=== PATIENT | female | born 1940 | race Caucasian/White ===

== ENCOUNTER 2017-12-08 19:58 | Emergency (ER) | payer OTHER ==
--- OUTSIDE RECORDS SUMMARY | 2017-12-08 20:00 | XMS REPORT ---
:1940 [facility] Tian Bean [address] [place] [id number] Care Team Providers Name Role Phone SHANTAL BEASLEY Unavailable Unavailable Problems This patient has no known problems. Allergies, Adverse Reactions, Alerts This patient has no known allergies or adverse reactions. Medications This patient has no known medications. Results Test Description Test Time Test Comments Text Results Atomic Results Result Comments CBC (HEMOGRAM ONLY) 2017-02-18 07:41:00 Test Item Value Reference Range Comments WHITE BLOOD CELL COUNT (BEAKER) 9.7 K/ L 3.5-10.5 (test lpnb=789) RED BLOOD CELL COUNT (BEAKER) 3.12 M/ L 3.93-5.22 (test tpoq=397) HEMOGLOBIN (BEAKER) (test 9.5 GM/DL 11.2-15.7 vjsd=939) HEMATOCRIT (BEAKER) (test 29.5 % 34.1-44.9 hdrx=223) MEAN CORPUSCULAR VOLUME (BEAKER) 94.6 fL 79.4-94.8 (test hajr=553) MEAN CORPUSCULAR HEMOGLOBIN 30.4 pg 25.6-32.2 (BEAKER) (test iqhm=675) MEAN CORPUSCULAR HEMOGLOBIN CONC 32.2 GM/DL 32.2-35.5 (BEAKER) (test aeug=005) RED CELL DISTRIBUTION WIDTH 13.1 % 11.7-14.4 (BEAKER) (test wmxn=529) PLATELET COUNT (BEAKER) (test 241 K/CU MM 150-450 Discordant result compared to alwp=095) previous result; clinical correlation required. MEAN PLATELET VOLUME (BEAKER) 10.9 fL 9.4-12.3 (test bqlq=641) NUCLEATED RED BLOOD CELLS 0 /100 WBC 0-0 (BEAKER) (test wpvy=701) [id number] 07:13:00 Test Item Value Reference Range Comments BLOOD UREA NITROGEN (BEAKER) (test ifqw=442) 15 mg/dL 7-21 [id number] 07:13:00 Test Item Value Reference Range Comments SODIUM (BEAKER) (test bcut=046) 138 meq/L 136-145 POTASSIUM (BEAKER) (test xgwk=926) 4.0 meq/L 3.5-5.1 CHLORIDE (BEAKER) (test ofhn=874) 108 meq/L 98-107 CO2 (BEAKER) (test uitt=475) 23 meq/L 22-29 [id number] 07:13:00 Test Item Value Reference Range Comments CREATININE (BEAKER) (test 0.95 mg/dL 0.57-1.25 imjw=914) EGFR (BEAKER) (test 57 mL/min/1.73 sq m ESTIMATED GFR IS NOT wazv=0985) ACCURATE CREATININE CLEARANCE IN PREDICTING GLOMERULAR FILTRATION RATE. ESTIMATED GFR IS NOT APPLICABLE FOR DIALYSIS PATIENTS. [id number] 07:07:00 Test Item Value Reference Range Comments PARTIAL THROMBOPLASTIN TIME (BEAKER) (test 64.7 seconds 22.5-36.0 rpil=150) [id number] 02:43:00 Test Item Value Reference Range Comments PARTIAL THROMBOPLASTIN TIME (BEAKER) (test 38.0 seconds 22.5-36.0 dkpf=374) Prior to initiating [id number] 17:59:00 Test Item Value Reference Range Comments ACTIVATED CLOTTING TIME 131 sec TESTED AT [facility] [address] (BEAKER) (test gaqi=861) [place] [address] [id number] 17:14:00 Test Item Value Reference Range Comments ACTIVATED CLOTTING TIME 329 sec TESTED AT [facility] [address] (BEAKER) (test nfra=729) [place] [address] [id number] 17:14:00 Test Item Value Reference Range Comments ACTIVATED CLOTTING TIME 334 sec TESTED AT [facility] [address] (BEAKER) (test gwku=717) [place] [address] [id number] 17:14:00 Test Item Value Reference Range Comments ACTIVATED CLOTTING TIME 345 sec TESTED AT [place] [id number] (BEAKER) (test puoi=747) [place] [address] [id number] 17:14:00 Test Item Value Reference Range Comments ACTIVATED CLOTTING TIME 274 sec TESTED AT [facility] [address] (BEAKER) (test deyc=282) [facility] [address] BASIC METABOLIC [id number] 07:16:00 Test Item Value Reference Range Comments SODIUM (BEAKER) (test 140 meq/L 136-145 iefu=684) POTASSIUM (BEAKER) (test 3.9 meq/L 3.5-5.1 oxjg=101) CHLORIDE (BEAKER) (test 105 meq/L 98-107 gzlc=651) CO2 (BEAKER) (test 26 meq/L 22-29 tpbn=427) BLOOD UREA NITROGEN 20 mg/dL 7-21 (BEAKER) (test vjtv=606) CREATININE (BEAKER) (test 1.32 mg/dL 0.57-1.25 jycf=166) GLUCOSE RANDOM (BEAKER) 113 mg/dL 70-105 (test lrzr=624) CALCIUM (BEAKER) (test 9.5 mg/dL 8.4-10.2 gsww=621) EGFR (BEAKER) (test 39 mL/min/1.73 sq m ESTIMATED GFR IS NOT dwtl=4340) ACCURATE CREATININE CLEARANCE IN PREDICTING GLOMERULAR FILTRATION RATE. ESTIMATED GFR IS NOT APPLICABLE FOR DIALYSIS PATIENTS. PROTHROMBIN TIME/[id number] 07:07:00 Test Item Value Reference Range Comments PROTIME (BEAKER) (test wjgk=037) 14.8 seconds 11.7-14.7 INR (BEAKER) (test ffcq=864) 1.2 <=5.9 RECOMMENDED COUMADIN/WARFARIN INR THERAPY RANGESSTANDARD DOSE: 2.0 - 3.0 Includes: PROPHYLAXIS forvenous thrombosis, systemic embolization; TREATMENT for venous thrombosis and/or pulmonary embolus.HIGH RISK: Target INR is 2.5-3.5 for patients with mechanical heart valves.Within 24 hours, if on CoumadinCBC W/ PLT COUNT & AUTO [id number] 07:00:00 Test Item Value Reference Range Comments WHITE BLOOD CELL COUNT (BEAKER) (test lish=278) 6.6 K/ L 3.5-10.5 RED BLOOD CELL COUNT (BEAKER) (test rbbl=771) 4.05 M/ L 3.93-5.22 HEMOGLOBIN (BEAKER) (test getn=781) 12.4 GM/DL 11.2-15.7 HEMATOCRIT (BEAKER) (test fnyk=998) 37.6 % 34.1-44.9 MEAN CORPUSCULAR VOLUME (BEAKER) (test vwry=820) 92.8 fL 79.4-94.8 MEAN CORPUSCULAR HEMOGLOBIN (BEAKER) (test 30.6 pg 25.6-32.2 kiuw=435) MEAN CORPUSCULAR HEMOGLOBIN CONC (BEAKER) (test 33.0 GM/DL 32.2-35.5 kglo=734) RED CELL DISTRIBUTION WIDTH (BEAKER) (test 12.6 % 11.7-14.4 cwwy=043) PLATELET COUNT (BEAKER) (test aadq=506) 296 K/CU MM 150-450 MEAN PLATELET VOLUME (BEAKER) (test ozit=039) 10.0 fL 9.4-12.3 NUCLEATED RED BLOOD CELLS (BEAKER) (test 0 /100 WBC 0-0 ogmh=404) NEUTROPHILS RELATIVE PERCENT (BEAKER) (test 67 % pltk=518) LYMPHOCYTES RELATIVE PERCENT (BEAKER) (test 25 % vfjc=701) MONOCYTES RELATIVE PERCENT (BEAKER) (test 6 % chjo=560) EOSINOPHILS RELATIVE PERCENT (BEAKER) (test 1 % qdll=853) BASOPHILS RELATIVE PERCENT (BEAKER) (test 1 % dxxf=217) NEUTROPHILS ABSOLUTE COUNT (BEAKER) (test 4.42 K/ L 1.56-6.13 xdiu=727) LYMPHOCYTES ABSOLUTE COUNT (BEAKER) (test 1.65 K/ L 1.18-3.74 wxdl=742) MONOCYTES ABSOLUTE COUNT (BEAKER) (test 0.37 K/ L 0.24-0.36 vzwb=676) EOSINOPHILS ABSOLUTE COUNT (BEAKER) (test 0.07 K/ L 0.04-0.36 sswe=500) BASOPHILS ABSOLUTE COUNT (BEAKER) (test 0.08 K/ L 0.01-0.08 xjfq=323) IMMATURE GRANULOCYTES-RELATIVE PERCENT (BEAKER) 0 % 0-1 (test lrey=5945)
--- OUTSIDE RECORDS SUMMARY | 2017-12-08 20:00 | XMS REPORT | Clinical Summary ---
:1940 Author Organization [facility] Address [address] [place] [address] Phone Care Team Providers Name Role Phone Unavailable Primary Care Provider Unavailable Allergies No Known Allergies Current Medications Prescription Sig. Disp. Refills Start Date End Date Status metoprolol Take 50 mg by Active (TOPROL-XL) 100 MG mouth daily . 24 hr tablet irbesartan-hydrochlo Take 1 tablet 12/24/2015 Active rothiazide (AVALIDE) by mouth 300-12.5 mg per daily. tablet atorvastatin Take 8 30 tablet 0 01/04/2016 Active (LIPITOR) 10 MG tablets (80 tablet mg total) by mouth daily. levothyroxine Take 50 mcg Active (SYNTHROID, by mouth LEVOTHROID) 50 MCG Every morning tablet on an empty stomach. dabigatran (PRADAXA) Take by mouth Active 150 mg Cap capsule 2 (two) times daily. amiodarone Take 200 mg Active (PACERONE) 200 MG by mouth tablet daily. pantoprazole Take 1 tablet 30 tablet 0 02/18/2017 Active (PROTONIX) 40 MG (40 mg total) tablet by mouth daily. aspirin 81 MG EC Take 1 tablet 30 tablet 11 01/04/2016 01/03/2017 tablet (81 mg total) by mouth daily. senna-docusate Take 1 tablet 30 tablet 11 01/04/2016 01/03/2017 (SENOKOT S) 8.6-50 by mouth mg per tablet nightly. pantoprazole Take 1 tablet 30 tablet 0 02/18/2017 02/18/2017 Discontinued (PROTONIX) 40 MG (40 mg total) tablet by mouth daily. Active Problems Problem Noted Date Atrial fibrillation (HCC) 02/17/2017 Acute ischemic right MCA stroke (HCC) 01/01/2016 Encounters Date Type Specialty Care Team Description 02/17/2017 Hospital Encounter Cardiology Adrian Moise Atrial fibrillation, MD unspecified type (HCC) 02/17/2017 - Hospital Encounter Cardiology Adrian Moise, Acute ischemic right 02/18/2017 MCA stroke (HCC);S/P ablation of atrial fibrillation 02/17/2017 Anesthesia Event Anderson Olivo MD 02/17/2017 Orders Only General Internal Medicine 02/17/2017 Procedure Pass 02/17/2017 Surgery Adrian Moise, EPS & ABLATION 02/10/2017 Outside Orders Central Scheduling Adrian Moise Atrial fibrillation, MD unspecified type (HCC) (Primary Dx) after 12/07/2016 Social History Tobacco Use Types Packs/Day Years Used Date Never Smoker Smokeless Tobacco: Never Used Alcohol Use Drinks/Week oz/Week Comments No Sex Assigned at Date Recorded Not on file Last Filed Vital Signs Vital Sign Reading Time Taken Blood Pressure 124/56 02/18/2017 11:25 AM [facility] OPERATOR Pulse 76 02/18/2017 11:25 AM [facility] OPERATOR Temperature 36.7 C (98.1 F) 02/18/2017 11:25 AM [facility] OPERATOR Respiratory Rate 16 02/18/2017 11:25 AM [facility] OPERATOR Oxygen Saturation 92% 02/18/2017 11:25 AM [facility] OPERATOR Inhaled Oxygen Concentration - - Weight 68.5 kg (151 lb) 02/18/2017 7:05 AM BAN[facility]Y OPERATOR Height 157.5 cm (5' 2") 02/17/2017 6:23 AM [facility] OPERATOR Body Mass Index 27.62 02/18/2017 7:05 AM BANBURY OPERATOR Plan of Treatment Not on file Procedures Procedure Name Priority Date/Time Associated Diagnosis Comments EPS & ABLATION 02/17/2017 11:53 AM [facility] OPERATOR Paroxysmal atrial fibrillation (HCC) Case Notes (2) CASE POP6 CV ANES Atrial fib uvaldo rf with dario & carto MD rerquest 1:00PM after 12/07/2016 Results RHYTHM STRIP - SCAN (02/24/2017 12:20 PM)Only the most recent of2 resultswithin the time period is included.CARDIAC CATH REPORT - SCAN (02/19/2017 8:00 PM) aPTT (02/18/2017 6:28 AM)Only the most recent of2 resultswithin the time period is included. Component Value Ref Range PTT 64.7 (H) 22.5 - 36.0 seconds Specimen Performing Laboratory Blood - Arm, [address] [address] CBC (Hemogram only) (02/18/2017 6:28 AM) Component Value Ref Range WBC 9.7 3.5 - 10.5 K/L RBC 3.12 (L) 3.93 - 5.22 M/L Hemoglobin 9.5 (L) 11.2 - 15.7 GM/DL Hematocrit 29.5 (L) 34.1 - 44.9 % MCV 94.6 79.4 - 94.8 fL MCH 30.4 25.6 - 32.2 pg MCHC 32.2 32.2 - 35.5 GM/DL RDW 13.1 11.7 - 14.4 % Platelets 241Comment: Discordant result compared to previous 150 - 450 K/CU MM result; clinical correlation required. MPV 10.9 9.4 - 12.3 fL nRBC 0 0 - 0 /100 WBC Specimen Performing Laboratory Blood - Arm, [address] [address] BUN (02/18/2017 6:28 AM) Component Value Ref Range BUN 15 7 - 21 mg/dL Specimen Performing Laboratory Blood - Arm, [address] [address] Creatinine (02/18/2017 6:28 AM) Component Value Ref Range Creatinine 0.95 0.57 - 1.25 mg/dL EGFR 57Comment: ESTIMATED GFR IS NOT ACCURATE mL/min/1.73 sq m CREATININE CLEARANCE IN PREDICTING GLOMERULAR FILTRATION RATE. ESTIMATED GFR IS NOT APPLICABLE FOR DIALYSIS PATIENTS. Specimen Performing Laboratory Blood - Arm, [address] [address] Electrolytes (02/18/2017 6:28 AM) Component Value Ref Range Sodium 138 136 - 145 meq/L Potassium 4.0 3.5 - 5.1 meq/L Chloride 108 (H) 98 - 107 meq/L CO2 23 22 - 29 meq/L Specimen Performing Laboratory Blood - Arm, [address] [address] POC ACTIVATED CLOTTING TIME (02/17/2017 5:43 PM)Only the most recent of5 resultswithin the time period is included. Component Value Ref Range Activated Clotting Time 131Comment: TESTED AT [facility] [address] [facility] sec [id number] Specimen Performing Laboratory Blood [place] [place] [id number] [place] [address] ECHOCARDIOGRAM REPORT - SCAN (02/17/2017 3:50 PM)Transesophageal echo (2016 8:31 AM) Component Value Ref Range Ejection Fraction Specimen Performing Laboratory [facility] ECHO [facility]ART[facility] MKCKESSON CPACS Narrative Transesophageal Echocardiography Report (MONSE) Demographics Patient Name ANKUR DUENAS Date of Study 02/17/2017 MOLLY [id number] Female Visit Number [id number] Room Number Number Date of Birth1Referring Physician Suma Campbell MD Age76 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 Risks, complications and alternative treatments were reviewed. Written consent was obtained. Procedure Type of Study MONSE procedure:TRANSESOPHAGEAL ECHO (Routine) Indications:Atrial fibrillation. Clinical History HGB 12.4 HCT 37.6 % STROKE HDL HTN HYPOTHYROIDSM Height: 62 inches Weight: 68.04 kg (150 lbs) BSA: 1.69 m^2 BMI: 27.44 kg/m^2 HR: 94 bpm BP: 124/68 mmHg MONSE Performed By: the attending and the fellow Procedure Informed Consent Procedure consent form obtained. Anesthesia consent obtained. Airway assessment performed. Mallampati Score: 2. History of anesthesia complications obtained. - See IV sedation record Procedure Medications - Versed 3 mg. - Fentanyl 75 mcg. Summary The interatrial septum is well visualized. IV saline contrast injection demostrates a PFO (patent foramen ovale) at rest and post Valsalva . Proximal ascending aorta size is mildly dilated . Grade 2 plaque (extensive intimal thickening) in the ascending aorta . LA is enlarged but severity assessment is unreliable due to know MONSE sector size limitation. LA appendage thrombus is not present . LA appendage velocities are normal range (>40 cm/s) . LA appendage morphology is simple (wind sock) . Previous Study Compared to prior transthoracic study dated 12/2015, there is no significant change. Signature Findings Technical Quality: Technically adequate exam. Rhythm/BPRegular sinus rhythm during the exam. Left Ventricle Global LV systolic function normal . Left AtriumLA is enlarged but severity assessment is unreliable due to know MONSE sector size limitation. LA appendage thrombus is not present . LA appendage velocities are normal range (>40 cm/s) . LA appendage morphology is simple (nusrat schuler) . Right VentricleThe right ventricular chamber size and systolic function are within normal limits. Right Atrium RA size is normal. Atrial SeptumThe interatrial septum is well visualized. IV saline contrast injection demostrates a PFO (patent foramen ovale) at rest and post Valsalva . Aortic Valve Normal AoV structure. A trace of aortic regurgitation. Mitral Valve Normal MV structure. Trace mitral regurgitation. Tricuspid ValveTV structure is normal. Unable to estimate peak systolic PA pressure; inadequate TR velocity signal. Pulmonic Valve PV is not well visualized; function appears normal by Doppler visualized. AortaProximal ascending aorta size is mildly dilated . Grade 2 plaque (extensive intimal thickening) in the ascending aorta . PericardiumNo pericardial effusion is visualized. IVC/SVC/PA/PV/PleuralThe pulmonary veins appear normal. 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 Risks, complications and alternative treatments were reviewed. Written consent was obtained. Procedure Type of Study MONSE procedure:TRANSESOPHAGEAL ECHO (Routine) Indications:Atrial fibrillation. Clinical History HGB 12.4 HCT 37.6 % STROKE HDL HTN HYPOTHYROIDSM Height: 62 inches Weight: 68.04 kg (150 lbs) BSA: 1.69 m^2 BMI: 27.44 kg/m^2 HR: 94 bpm BP: 124/68 mmHg MONSE Performed By: the attending and the fellow Procedure Informed Consent Procedure consent form obtained. Anesthesia consent obtained. Airway assessment performed. Mallampati Score: 2. History of anesthesia complications obtained. - See IV sedation record Procedure Medications - Versed 3 mg. - Fentanyl 75 mcg. Summary The interatrial septum is well visualized. IV saline contrast injection demostrates a PFO (patent foramen ovale) at rest and post Valsalva . Proximal ascending aorta size is mildly dilated . Grade 2 plaque (extensive intimal thickening) in the ascending aorta . LA is enlarged but severity assessment is unreliable due to know MONSE sector size limitation. LA appendage thrombus is not present . LA appendage velocities are normal range (>40 cm/s) . LA appendage morphology is simple (wind sock) . Previous Study Compared to prior transthoracic study dated 12/2015, there is no significant change. Signature Findings Technical Quality: Technically adequate exam. Rhythm/BP Regular sinus rhythm during the exam. Left Ventricle Global LV systolic function normal . Left Atrium LA is enlarged but severity assessment is unreliable due to know MONSE sector size limitation. LA appendage thrombus is not present . LA appendage velocities are normal range (>40 cm/s) . LA appendage morphology is simple (wind sock) . Right Ventricle The right ventricular chamber size and systolic function are within normal limits. Right Atrium RA size is normal. Atrial Septum The interatrial septum is well visualized. IV saline contrast injection demostrates a PFO (patent foramen ovale) at rest and post Valsalva . Aortic Valve Normal AoV structure. A trace of aortic regurgitation. Mitral Valve Normal MV structure. Trace mitral regurgitation. Tricuspid Valve TV structure is normal. Unable to estimate peak systolic PA pressure; inadequate TR velocity signal. Pulmonic Valve PV is not well visualized; function appears normal by Doppler visualized. Aorta Proximal ascending aorta size is mildly dilated . Grade 2 plaque (extensive intimal thickening) in the ascending aorta . Pericardium No pericardial effusion is visualized. IVC/SVC/PA/PV/Pleural The pulmonary veins appear normal. Chambers/Structures Aorta Ascending Aorta: 3.72 cm ECG 12 lead (02/17/2017 7:36 AM) Specimen Performing Laboratory [employer] [facility] Narrative Ventricular Rate 70 BPM Atrial Rate 70 BPM P-R Interval 160 ms QRS Duration 86 ms Q-T Interval 450 ms QTC Calculation(Bazett) 486 ms P [place] -39 degrees R [place] 49 degrees T [place] 43 degrees Unusual P axis, possible ectopic atrial rhythm Abnormal ECG When compared with ECG of 01-JAN-2016 17:50, Ectopic atrial rhythm has replaced Sinus rhythm Confirmed by Idris Moise Alireaz ([id number]) on 02/25/2017 8:43:53 PM Procedure Note Interface, External Ris In - 02/25/2017 8:44 PM [facility] OPERATOR Ventricular Rate 70 BPM Atrial Rate 70 BPM P-R Interval 160 ms QRS Duration 86 ms Q-T Interval 450 ms QTC Calculation(Bazett) 486 ms P [place] -39 degrees R [place] 49 degrees T [place] 43 degrees Unusual P axis, possible ectopic atrial rhythm Abnormal ECG When compared with ECG of 01-JAN-2016 17:50, Ectopic atrial rhythm has replaced Sinus rhythm Confirmed by Idris Moise Alireaz ([id number]) on 02/25/2017 8:43:53 PM CBC with platelet count + automated diff (02/17/2017 6:52 AM) Component Value Ref Range WBC 6.6 3.5 - 10.5 K/L RBC 4.05 3.93 - 5.22 M/L Hemoglobin 12.4 11.2 - 15.7 GM/DL Hematocrit 37.6 34.1 - 44.9 % MCV 92.8 79.4 - 94.8 fL MCH 30.6 25.6 - 32.2 pg MCHC 33.0 32.2 - 35.5 GM/DL RDW 12.6 11.7 - 14.4 % Platelets 296 150 - 450 K/CU MM MPV 10.0 9.4 - 12.3 fL nRBC 0 0 - 0 /100 WBC % Neutros 67 % % Lymphs 25 % % Monos 6 % % Eos 1 % % Baso 1 % # Neutros 4.42 1.56 - 6.13 K/L # Lymphs 1.65 1.18 - 3.74 K/L # Monos 0.37 (H) 0.24 - 0.36 K/L # Eos 0.07 0.04 - 0.36 K/L # Baso 0.08 0.01 - 0.08 K/L Immature Granulocytes-Relative 0 0 - 1 % Specimen Performing Laboratory Blood - Arm, [address] [address] Prothrombin time/INR (02/17/2017 6:52 AM) Component Value Ref Range Protime 14.8 (H) 11.7 - 14.7 seconds INR 1.2 <=5.9 Specimen Performing Laboratory Blood - Arm, [address] [address] Narrative RECOMMENDED COUMADIN/WARFARIN INR THERAPY RANGES STANDARD DOSE: 2.0 - 3.0 Includes: PROPHYLAXIS for venous thrombosis, systemic embolization; TREATMENT for venous thrombosis and/or pulmonary embolus. HIGH RISK: Target INR is 2.5-3.5 for patients with mechanical heart valves. Within 24 hours, if on Coumadin CBC with platelet count + automated diff (02/17/2017 6:52 AM) Specimen Performing Laboratory Blood Narrative The following orders were created for panel order CBC with platelet count + automated diff. Procedure Abnormality Status --------- ------ CBC with platelet count ...[[id number]]AbnormalFinal result Please view results for these tests on the individual orders. Basic metabolic panel (02/17/2017 6:52 AM) Component Value Ref Range Sodium 140 136 - 145 meq/L Potassium 3.9 3.5 - 5.1 meq/L Chloride 105 98 - 107 meq/L CO2 26 22 - 29 meq/L BUN 20 7 - 21 mg/dL Creatinine 1.32 (H) 0.57 - 1.25 mg/dL Glucose 113 (H) 70 - 105 mg/dL Calcium 9.5 8.4 - 10.2 mg/dL EGFR 39Comment: ESTIMATED GFR IS NOT ACCURATE mL/min/1.73 sq m CREATININE CLEARANCE IN PREDICTING GLOMERULAR FILTRATION RATE. ESTIMATED GFR IS NOT APPLICABLE FOR DIALYSIS PATIENTS. Specimen Performing Laboratory Blood - Arm, Left [address] [address] after 12/07/2016
[2017-12-08] MEDS ORDERED: IBUPROFEN 200 MG TAB PO ONE (20:43)
--- NOTE | 2017-12-08 21:17 | RAD REPORT ---
EXAM DESCRIPTION: RAD - Foot Left 3 View - 12/08/2017 9:06 pm CLINICAL HISTORY: DEFORMITY Pain COMPARISON: <Comparisons> FINDINGS: Fracture involves the base of the proximal phalanx of the fifth toe. No additional fractur e seen.
--- NOTE | 2017-12-08 21:18 | EDPHYS ---
Physician Documentation [facility] Name: Cierra Flores Age: 77 yrs Sex: Female : 1940 Arrival Date: 12/08/2017 Time: 20:10 Bed 10 Private MD: ED Physician Jah Mckeon HPI: 12/08 20:27 This 77 yrs old Female presents to ER via Wheelchair with complaints of Toe ma2 Injury. 20:27 The patient presents with an injury. The complaints affect the left foot. Context: The ma2 problem was sustained at home. Associated signs and symptoms: Pertinent positives: swelling, Pertinent negatives: calf tenderness, fever, numbness, swelling. Severity of symptoms: At their worst the symptoms were moderate, in the emergency department the symptoms are unchanged. The patient has not experienced similar symptoms in the past. tripped hit left 5th toe, no head trauma or loc . Historical: - Allergies: 20:18 Morphine; fc - Home Meds: 20:18 atorvastatin 80 mg Oral tab 1 tab once daily [Active]; doxazosin 2 mg Oral tab 1 tab fc once daily [Active]; irbesartan-hydrochlorothiazide 300-12.5 mg Oral tab 1 tab once daily [Active]; levothyroxine 50 mcg tab 1 tab once daily [Active]; metoprolol succinate 100 mg Oral Tb24 1 tab once daily [Active]; Pradaxa 150 mg Oral cap 1 cap 2 times per day [Active]; - PMHx: 20:18 Atrial Fib; Heart Monitor; Hypertension; CVA; High Cholesterol; Hypothyroidism; fc - Immunization history:: Last tetanus immunization: unknown, Flu vaccine is not up to date. - Social history:: Smoking status: Patient/guardian denies using tobacco, Patient/guardian denies using alcohol, street drugs, The patient lives with family, . - Ebola Screening: : Patient negative for fever greater than or equal to 101.5 degrees Fahrenheit, and additional compatible Ebola Virus Disease symptoms Patient denies exposure to infectious person Patient denies travel to an Ebola-affected area in the 21 days before illness onset. - Family history:: not pertinent. - Hospitalizations: : No recent hospitalization is reported. ROS: 20:27 MS/extremity: Positive for deformity, pain, Negative for abrasion, rash, tenderness, ma2 acute changes. 20:27 Constitutional: Negative for fever, chills, and weight loss, Abdomen/GI: Negative for abdominal pain, nausea, diarrhea, and constipation, Back: Negative for injury and pain, : Negative for injury, bleeding, discharge, and swelling, Skin: Negative for injury, rash, and discoloration, Neuro: Negative for headache, weakness, numbness, tingling, and seizure. Exam: 20:27 Constitutional: This is a well developed, well nourished patient who is awake, alert, ma2 and in no acute distress. Chest/axilla: Normal chest wall appearance and motion. Nontender with no deformity. No lesions are appreciated. Cardiovascular: Regular rate and rhythm with a normal S1 and S2. No gallops, murmurs, or rubs. Normal PMI, no JVD. No pulse deficits. Respiratory: Lungs have equal breath sounds bilaterally, clear to auscultation and percussion. No rales, rhonchi or wheezes noted. No increased work of breathing, no retractions or nasal flaring. Abdomen/GI: Soft, non-tender, with normal bowel sounds. No distension or tympany. No guarding or rebound. No evidence of tenderness throughout. Skin: Warm, dry with normal turgor. Normal color with no rashes, no lesions, and no evidence of cellulitis. Neuro: Awake and alert, GCS 15, oriented to person, place, time, and situation. Cranial nerves II-XII grossly intact. Motor strength 5/5 in all extremities. Sensory grossly intact. Cerebellar exam normal. Normal gait. 20:27 Musculoskeletal/extremity: ROM: Circulation is intact in all extremities. Sensation intact. left toe pain and deformity . Vital Signs: 20:14 BP 132 / 54; Pulse 74; Resp 18; Temp 97.7(O); Pulse Ox 98% on R/A; Weight 66.22 kg (R); fc Height 5 ft. 2 in. (157.48 cm) (R); Pain 6/10; 21:28 BP 141 / 54; Pulse 74; Resp 16 S; Temp 97(TE); Pulse Ox 99% on R/A; Pain 1/10; bb 20:14 Body Mass Index 26.70 (66.22 kg, 157.48 cm) fc MDM: 20:22 Patient medically screened. ma2 20:27 Differential diagnosis: fracture, sprain, arthritis. ma2 21:16 Data reviewed: vital signs, nurses notes, radiologic studies. Test interpretation: by id2 ED physician or midlevel provider: plain radiologic studies. Counseling: I had a detailed discussion with the patient and/or guardian regarding: the historical points, exam findings, and any diagnostic results supporting the discharge/admit diagnosis, the presence of at least one elevated blood pressure reading (>120/80) during this emergency department visit, the need for outpatient follow up. Response to treatment: the patient's symptoms have markedly improved after treatment. ED course: body wrrap . ED course: had sole shoe . 12/08 20:11 Order name: Foot Left 3 View XRAY Administered Medications: 20:36 Drug: Motrin 400 mg Route: PO; 21:28 Follow up: Response: Pain is decreased bb Disposition: 12/08/17 21:17 Discharged to Home. Impression: Displaced fracture of medial phalanx of unspecified lesser toe(s). - Condition is Stable. - Discharge Instructions: Toe Fracture. - Prescriptions for Ibuprofen 600 mg Oral Tablet - take 1 tablet by ORAL route every 6 hours As needed take with food; 30 tablet. - Medication Reconciliation Form, Thank You Letter, Antibiotic Education, Prescription Opioid Use form. - Follow up: Private Physician; When: Tomorrow; Reason: Continuance of care. Signatures: Dispatcher [employer] EDSuzan Heredia RN RN Shefali Pop RN RN bb Alzahri, Mohammad, MD MD id2 Corrections: (The following items were deleted from the chart) 21:11 20:18 Home Meds: amiodarone 200 mg Oral tab 1 tab once daily; [facility] 21:31 21:17 12/08/2017 21:17 Discharged to Home. Impression: Displaced fracture of medial bb phalanx of unspecified lesser toe(s). Condition is Stable. Forms are Medication Reconciliation Form, Thank You Letter, Antibiotic Education, Prescription Opioid Use. Follow up: Private Physician; When: Tomorrow; Reason: Continuance of care. id2
--- NOTE | 2017-12-08 21:18 | ER ---
Nurse's Notes [facility] Name: Cierra Flores Age: 77 yrs Sex: Female : 1940 Arrival Date: 12/08/2017 Time: 20:10 Bed 10 Private MD: Diagnosis: Displaced fracture of medial phalanx of unspecified lesser toe(s) Presentation: 12/08 20:00 Method Of Arrival: Wheelchair fc 20:00 Presenting complaint: Patient states: the that was walking out of the bathroom and fc stepped down and fell. She has left 5th toe that is deformed. Also having increased pain with ambulation. Transition of care: patient was not received from another setting of care. Onset of symptoms was December 08, 2017 at 19:05. Risk Assessment: Do you want to hurt yourself or someone else? Patient reports no desire to harm self or others. Initial Sepsis Screen: Does the patient meet any 2 criteria? No. Patient's initial sepsis screen is negative. Does the patient have a suspected source of infection? No. Patient's initial sepsis screen is negative. Care prior to arrival: Ice pack applied to injury. 20:00 Acuity: ELIO 4 fc Historical: - Allergies: 20:18 Morphine; fc - Home Meds: 20:18 atorvastatin 80 mg Oral tab 1 tab once daily [Active]; doxazosin 2 mg Oral tab 1 tab fc once daily [Active]; irbesartan-hydrochlorothiazide 300-12.5 mg Oral tab 1 tab once daily [Active]; levothyroxine 50 mcg tab 1 tab once daily [Active]; metoprolol succinate 100 mg Oral Tb24 1 tab once daily [Active]; Pradaxa 150 mg Oral cap 1 cap 2 times per day [Active]; - PMHx: 20:18 Atrial Fib; Heart Monitor; Hypertension; CVA; High Cholesterol; Hypothyroidism; fc - Immunization history:: Last tetanus immunization: unknown, Flu vaccine is not up to date. - Social history:: Smoking status: Patient/guardian denies using tobacco, Patient/guardian denies using alcohol, street drugs, The patient lives with family, . - Ebola Screening: : Patient negative for fever greater than or equal to 101.5 degrees Fahrenheit, and additional compatible Ebola Virus Disease symptoms Patient denies exposure to infectious person Patient denies travel to an Ebola-affected area in the 21 days before illness onset. - Family history:: not pertinent. - Hospitalizations: : No recent hospitalization is reported. Screenin:00 Abuse screen: Denies threats or abuse. Nutritional screening: No deficits noted. fc Tuberculosis screening: No symptoms or risk factors identified. Fall Risk None identified. Assessment: 20:15 General: Appears in no apparent distress. uncomfortable, well groomed, Behavior is bb calm, cooperative. Pain: Complains of pain in right fifth toe Pain currently is 5 out of 10 on a pain scale. Neuro: Level of Consciousness is awake, alert, obeys commands, Oriented to person, place, time, situation. Cardiovascular: No deficits noted. Respiratory: Respiratory effort is even, unlabored. GI: No deficits noted. No signs and/or symptoms were reported involving the gastrointestinal system. Derm: Skin is pink, warm \T\ dry. Musculoskeletal: Circulation, motion, and sensation intact. Reports pain in right fifth toe. 21:27 Reassessment: No changes from previously documented assessment. Patient and/or family bb updated on plan of care and expected duration. Pain level reassessed. Patient is alert, oriented x 3, equal unlabored respirations, skin warm/dry/pink. pt states pain has improved. Right pinky toe yoan taped, jessica wrap applied and pt placed in post-op shoe. Pt verbalized understanding of and agrees to plan of care discharge instructions given pt assisted to exit via wheelchair accompanied by spouse. Vital Signs: 20:14 BP 132 / 54; Pulse 74; Resp 18; Temp 97.7(O); Pulse Ox 98% on R/A; Weight 66.22 kg (R); fc Height 5 ft. 2 in. (157.48 cm) (R); Pain 6/10; 21:28 BP 141 / 54; Pulse 74; Resp 16 S; Temp 97(TE); Pulse Ox 99% on R/A; Pain 1/10; bb 20:14 Body Mass Index 26.70 (66.22 kg, 157.48 cm) ED Course: 20:00 Patient has correct armband on for positive identification. Call light in reach. fc 20:10 Patient arrived in ED. fc 20:14 Triage completed. fc 20:14 Arm band placed on Patient placed in an exam room, on a stretcher. fc 20:16 No provider procedures requiring assistance completed. fc 20:19 Jah Mckeon MD is Attending Physician. ma2 20:28 Shefali Pop, RN is Primary Nurse. bb 21:06 Foot Left 3 View XRAY In Process Unspecified. EDMS 21:30 Patient did not have IV access during this emergency room visit. bb Administered Medications: 20:36 Drug: Motrin 400 mg Route: PO; bb 21:28 Follow up: Response: Pain is decreased bb Outcome: 21:17 Discharge ordered by . ma2 21:30 Discharged to home via wheelchair, with family. bb 21:30 Condition: stable 21:30 Discharge instructions given to patient, Instructed on discharge instructions, follow up and referral plans. medication usage, Demonstrated understanding of instructions, follow-up care, medications, Prescriptions given X 1. 21:31 Patient left the ED. bb Signatures: Dispatcher [employer] [facility] Suzan Looney RN RN Shefali Pop RN RN Jah Mckeon MD MD ma Corrections: (The following items were deleted from the chart) 21:11 20:18 Home Meds: amiodarone 200 mg Oral tab 1 tab once daily; fc
[2017-12-08 21:36] VITALS: BP 141/54; TEMP 97; O2SAT 99
== END 2017-12-08 21:31 | disposition home or self-care (01) ==
LOC: ER 19:58
DX: S92.522A Displaced fracture of middle phalanx of left lesser toe(s), initial encounter for closed fracture (principal); W22.8XXA Striking against or struck by other objects, initial encounter; Y93.9 Activity, unspecified; Y92.009 Unspecified place in unspecified non-institutional (private) residence as the place of occurrence of the external cause; Z86.73 Personal history of transient ischemic attack (TIA), and cerebral infarction without residual deficits; Z88.5 Allergy status to narcotic agent; I10 Essential (primary) hypertension; I48.91 Unspecified atrial fibrillation; E78.00 Pure hypercholesterolemia, unspecified; E03.9 Hypothyroidism, unspecified
CPT/HCPCS: 99283

== ENCOUNTER 2019-03-08 09:56 | Observation (INO) | payer OTHER ==
--- OUTSIDE RECORDS SUMMARY | 2019-03-08 10:09 | XMS REPORT ---
:1940 Author Organization eClinical[employer] Care Team Providers Name Role Phone Shukla Sreekanth Provider Role Unavailable Allergies, Adverse Reactions, Alerts Substance Reaction Event Type MORPHINE Info Not Available Drug Allergy Problems Problem Type Condition Code Onset Dates Condition Status Problem Pain in joint of left knee M25.562 Active Problem Closed displaced fracture of S92.512A Active proximal phalanx of lesser toe of left foot, initial encounter Problem Left sciatic nerve pain M54.32 Active Assessment Pain in joint of left knee M25.562 Active Assessment Left sciatic nerve pain M54.32 Active Problem Pain in toe of left foot M79.675 Active Medications Medication Code Code Instructions Start End Status Dosage System Date Date Pradaxa [facility] 81447026001 150 MG Orally Dec 16, Active 1 capsule Twice a day 2017 Irbesartan-Hydroc [facility] 23875229527 300-12.5 MG Active not hlorothiazide Oral defined Levothyroxine ND 58553981769 75 MCG Oral Active not Sodium defined Amlodipine [facility] 33456026294 5 MG Oral Active not Besylate defined Atorvastatin [facility] 48565526508 80 MG Oral Active not Calcium defined Metoprolol [facility] 82375945335 50 MG Oral Active not Succinate ER defined Results No Known Results Summary Purpose eClinicalWorks Submission
--- OUTSIDE RECORDS SUMMARY | 2019-03-08 10:09 | XMS REPORT ---
:1940 [facility] Address [facility] Tian Bean [address] [place] [id number] Care Team Providers Name Role Phone SHANTAL [...] COUNT (BEAKER) 9.7 K/ L 3.5-10.5 (test qdqx=147) RED BLOOD CELL COUNT (BEAKER) 3.12 M/ L 3.93-5.22 (test kicb=297) HEMOGLOBIN (BEAKER) (test 9.5 GM/DL 11.2-15.7 mdes=088) HEMATOCRIT (BEAKER) (test 29.5 % 34.1-44.9 rxos=320) MEAN CORPUSCULAR VOLUME (BEAKER) 94.6 fL 79.4-94.8 (test kdqu=872) MEAN CORPUSCULAR HEMOGLOBIN 30.4 pg 25.6-32.2 (BEAKER) (test gzzs=605) MEAN CORPUSCULAR HEMOGLOBIN CONC 32.2 GM/DL 32.2-35.5 (BEAKER) (test ibhm=060) RED CELL DISTRIBUTION WIDTH 13.1 % 11.7-14.4 (BEAKER) (test mdal=246) PLATELET COUNT (BEAKER) (test 241 K/CU MM 150-450 Discordant result compared to qybd=785) previous result; clinical correlation required. MEAN PLATELET VOLUME (BEAKER) 10.9 fL 9.4-12.3 (test bdcm=733) NUCLEATED RED BLOOD CELLS 0 /100 WBC 0-0 (BEAKER) (test gptt=423) [id number] 07:13:00 Test Item Value Reference Range Comments BLOOD UREA NITROGEN (BEAKER) (test njdc=742) 15 mg/dL 7-21 [id number] 07:13:00 Test Item Value Reference Range Comments SODIUM (BEAKER) (test kpyc=925) 138 meq/L 136-145 POTASSIUM (BEAKER) (test wkkk=699) 4.0 meq/L 3.5-5.1 CHLORIDE (BEAKER) (test ygqr=830) 108 meq/L 98-107 CO2 (BEAKER) (test hren=002) 23 meq/L 22-29 [id number] 07:13:00 Test Item Value Reference Range Comments CREATININE (BEAKER) (test 0.95 mg/dL 0.57-1.25 wbsc=127) EGFR (BEAKER) (test 57 mL/min/1.73 sq m ESTIMATED GFR IS NOT gkwa=0660) ACCURATE CREATININE CLEARANCE IN PREDICTING GLOMERULAR FILTRATION RATE. ESTIMATED GFR IS NOT APPLICABLE FOR DIALYSIS PATIENTS. [id number] 07:07:00 Test Item Value Reference Range Comments PARTIAL THROMBOPLASTIN TIME (BEAKER) (test 64.7 seconds 22.5-36.0 vdsz=884) [id number] 02:43:00 Test Item Value Reference Range Comments PARTIAL THROMBOPLASTIN TIME (BEAKER) (test 38.0 seconds 22.5-36.0 czzd=484) Prior to initiating [id number] 17:59:00 Test Item Value Reference Range Comments ACTIVATED CLOTTING TIME 131 sec TESTED AT [facility] [address] (BEAKER) (test hzxo=911) [place] [address] [id number] 17:14:00 Test Item Value Reference Range Comments ACTIVATED CLOTTING TIME 329 sec TESTED AT [facility] [address] (BEAKER) (test juru=400) [place] [address] [id number] 17:14:00 Test Item Value Reference Range Comments ACTIVATED CLOTTING TIME 334 sec TESTED AT [facility] [address] (BEAKER) (test nneu=148) [place] [address] [id number] 17:14:00 Test Item Value Reference Range Comments ACTIVATED CLOTTING TIME 345 sec TESTED AT [place] [id number] (BEAKER) (test dglu=562) [place] [address] [id number] 17:14:00 Test Item Value Reference Range Comments ACTIVATED CLOTTING TIME 274 sec TESTED AT [facility] [address] (BEAKER) (test aydg=152) [facility] [id number] BASIC METABOLIC [id number] 07:16:00 Test Item Value Reference Range Comments SODIUM (BEAKER) (test 140 meq/L 136-145 xomq=049) POTASSIUM (BEAKER) (test 3.9 meq/L 3.5-5.1 lkiv=864) CHLORIDE (BEAKER) (test 105 meq/L 98-107 ctog=540) CO2 (BEAKER) (test 26 meq/L 22-29 exfd=852) BLOOD UREA NITROGEN 20 mg/dL 7-21 (BEAKER) (test rcvz=404) CREATININE (BEAKER) (test 1.32 mg/dL 0.57-1.25 tqvr=464) GLUCOSE RANDOM (BEAKER) 113 mg/dL 70-105 (test aqfi=428) CALCIUM (BEAKER) (test 9.5 mg/dL 8.4-10.2 ttda=629) EGFR (BEAKER) (test 39 mL/min/1.73 sq m ESTIMATED GFR IS NOT hppg=2722) ACCURATE CREATININE CLEARANCE IN PREDICTING GLOMERULAR FILTRATION RATE. ESTIMATED GFR IS NOT APPLICABLE FOR DIALYSIS PATIENTS. PROTHROMBIN [id number] 07:07:00 Test Item Value Reference Range Comments PROTIME (BEAKER) (test xisd=546) 14.8 seconds 11.7-14.7 INR (BEAKER) (test mxos=052) 1.2 <=5.9 RECOMMENDED COUMADIN/WARFARIN INR THERAPY RANGESSTANDARD DOSE: 2.0 - 3.0 Includes: PROPHYLAXIS forvenous thrombosis, systemic embolization; TREATMENT for venous thrombosis and/or pulmonary embolus.HIGH RISK: Target INR is 2.5-3.5 for patients with mechanical heart valves.Within 24 hours, if on CoumadinCBC W/ PLT COUNT & AUTO [id number] 07:00:00 Test Item Value Reference Range Comments WHITE BLOOD CELL COUNT (BEAKER) (test zehx=113) 6.6 K/ L 3.5-10.5 RED BLOOD CELL COUNT (BEAKER) (test limc=047) 4.05 M/ L 3.93-5.22 HEMOGLOBIN (BEAKER) (test cfnx=630) 12.4 GM/DL 11.2-15.7 HEMATOCRIT (BEAKER) (test kqmy=426) 37.6 % 34.1-44.9 MEAN CORPUSCULAR VOLUME (BEAKER) (test pfph=577) 92.8 fL 79.4-94.8 MEAN CORPUSCULAR HEMOGLOBIN (BEAKER) (test 30.6 pg 25.6-32.2 btxt=012) MEAN CORPUSCULAR HEMOGLOBIN CONC (BEAKER) (test 33.0 GM/DL 32.2-35.5 iory=409) RED CELL DISTRIBUTION WIDTH (BEAKER) (test 12.6 % 11.7-14.4 lzmn=655) PLATELET COUNT (BEAKER) (test dbmk=486) 296 K/CU MM 150-450 MEAN PLATELET VOLUME (BEAKER) (test iyzd=404) 10.0 fL 9.4-12.3 NUCLEATED RED BLOOD CELLS (BEAKER) (test 0 /100 WBC 0-0 cypr=523) NEUTROPHILS RELATIVE PERCENT (BEAKER) (test 67 % zdbz=011) LYMPHOCYTES RELATIVE PERCENT (BEAKER) (test 25 % pcqi=870) MONOCYTES RELATIVE PERCENT (BEAKER) (test 6 % vnig=464) EOSINOPHILS RELATIVE PERCENT (BEAKER) (test 1 % ndeg=062) BASOPHILS RELATIVE PERCENT (BEAKER) (test 1 % leaz=549) NEUTROPHILS ABSOLUTE COUNT (BEAKER) (test 4.42 K/ L 1.56-6.13 hhee=222) LYMPHOCYTES ABSOLUTE COUNT (BEAKER) (test 1.65 K/ L 1.18-3.74 ebwm=628) MONOCYTES ABSOLUTE COUNT (BEAKER) (test 0.37 K/ L 0.24-0.36 qrln=425) EOSINOPHILS ABSOLUTE COUNT (BEAKER) (test 0.07 K/ L 0.04-0.36 bbaq=237) BASOPHILS ABSOLUTE COUNT (BEAKER) (test 0.08 K/ L 0.01-0.08 jkno=159) IMMATURE GRANULOCYTES-RELATIVE PERCENT (BEAKER) 0 % 0-1 (test pnfn=1485)
--- OUTSIDE RECORDS SUMMARY | 2019-03-08 10:09 | XMS REPORT ---
:1940 Author Organization eClinicalWorks Care Team Providers Name Role Phone Shukla Sreekanth Provider Role Unavailable Allergies, Adverse Reactions, Alerts Substance Reaction Event Type MORPHINE Info Not Available Drug Allergy Problems Problem Type Condition Code Onset Dates Condition Status Problem Closed displaced fracture of S92.512A Active proximal phalanx of lesser toe of left foot, initial encounter Problem Pain in toe of left foot M79.675 Active Assessment Pain in toe of left foot M79.675 Active Assessment Closed displaced fracture of S92.512A Active proximal phalanx of lesser toe of left foot, initial encounter Medications Medication Code Code Instructions Start End Status Dosage System Date Date Pradaxa [facility] 22860743506 150 MG Orally Dec 16, Active 1 capsule Twice a day 2017 Atorvastatin [facility] 38135684528 80 MG Oral Active not Calcium defined Metoprolol [facility] 72640114038 50 MG Oral Active not Succinate ER defined Levothyroxine ND 62503874578 75 MCG Oral Active not Sodium defined Amlodipine [facility] 24517474315 5 MG Oral Active not Besylate defined Irbesartan-Hydroc [facility] 79830640911 300-12.5 MG Active not hlorothiazide Oral defined Results No Known Results Summary Purpose eClinicalWorks Submission
[2019-03-08 10:29] LABS: Absolute Lymphocytes (CBC) 2.6 K/uL (0.7-4.9); Basophils % 1.4 % (0-1.3); Hematocrit 42.4 % (36.0-45.0); Lymphocytes % 35.4 % (15.3-44.8); MPV 8.5 fL (7.6-11.3); RBC Red Blood Cell Count 4.79 M/uL (3.86-4.86)
[2019-03-08 10:30] LABS: Protime INR 1.44
--- NOTE | 2019-03-08 10:33 | RAD REPORT ---
EXAM DESCRIPTION: Dereck Single View03/08/2019 10:28 am CLINICAL HISTORY: Chest pain COMPARISON: 2017 FINDINGS: The lungs appear clear of acute infiltrate. The heart is normal size IMPRESSION: No acute abnormalities displayed
[2019-03-08 10:52] LABS: ALT/SGPT 21 U/L (12-78); AST/SGOT 22 U/L (15-37); Albumin 3.9 g/dL (3.4-5.0); Alkaline Phosphatase 97 U/L (45-117); BUN Blood Urea Nitrogen 19 mg/dL (7-18); Bicarbonate 27 mmol/L (21-32); Bilirubin Direct 0.1 mg/dL (0-0.2); Bilirubin Total 0.5 mg/dL (0.2-1.0); Glucose Level 112 mg/dL (74-106); Lipase 214 U/L (73-393); NT PRO-BNP 315 pg/mL (<450); Potassium 3.9 mmol/L (3.5-5.1); Protein, Total 7.8 g/dL (6.4-8.2); Sodium Level 136 mmol/L (136-145); Thyroid Stimulating Hormone 0.069 uIU/mL (0.360-3.740); Troponin (Emerg Dept Use Only) < 0.02 ng/mL (0.0-0.045)
[2019-03-08] MEDS ORDERED: FAMOTIDINE 20 MG/2 ML VIAL IV ONE (11:28)
[2019-03-08] MEDS ORDERED: ASPIRIN 81 MG CHEWABLE TABLET ONE (11:28)
--- NOTE | 2019-03-08 12:51 | EDPHYS ---
Physician Documentation [facility] Name: Cierra Flores Age: 78 yrs Sex: Female : 1940 Arrival Date: 03/08/2019 Time: 09:59 Bed 13 Private MD: ED Physician Dustin James HPI: 03/08 11:17 This 78 yrs old Female presents to ER via Wheelchair with complaints of chest saman pain and sob. 11:17 The patient has shortness of breath at rest, with light activity. Onset: The saman symptoms/episode began/occurred 30 day(s) ago. Duration: The symptoms are intermittent, with episodes lasting minutes at a time. The patient's shortness of breath has no apparent modifying factors. The patient or guardian reports chest pain that is located primarily in the substernal area. Onset: 1 month(s) ago. The pain radiates to Associated signs and symptoms: Pertinent positives: chest pain, dizziness, nausea. Severity of symptoms: At their worst the symptoms were moderate in the emergency department the symptoms are unchanged. Associated signs and symptoms: Pertinent positives: dizziness, nausea, shortness of breath. The chest pain is described as a pressure. Historical: - Allergies: 10:05 Morphine; em - Home Meds: 10:40 levothyroxine 75 mcg tab 1 tab once daily [Active]; metoprolol tartrate 50 mg Oral tab em 1 tab once daily [Active]; amlodipine 5 mg tab 1 tab once daily [Active]; Pradaxa 150 mg oral cap [Active]; irbesartan-hydrochlorothiazide 300-12.5 mg Oral tab 1 tab once daily [Active]; - PMHx: 10:05 Atrial Fib; CVA; Heart Monitor; High Cholesterol; Hypertension; Hypothyroidism; em - PSHx: 10:05 Hysterectomy; Appendectomy; Cholecystectomy; em - Immunization history:: Adult Immunizations up to date. - Social history:: Smoking status: Patient/guardian denies using tobacco. - Ebola Screening: : Patient negative for fever greater than or equal to 101.5 degrees Fahrenheit, and additional compatible Ebola Virus Disease symptoms Patient denies exposure to infectious person Patient denies travel to an Ebola-affected area in the 21 days before illness onset No symptoms or risks identified at this time. - Family history:: not pertinent. ROS: 11:17 Constitutional: Negative for fever, chills, and weight loss, Eyes: Negative for injury, saman pain, redness, and discharge, ENT: Negative for injury, pain, and discharge, Neck: Negative for injury, pain, and swelling, Abdomen/GI: Negative for abdominal pain, nausea, vomiting, diarrhea, and constipation, Back: Negative for injury and pain, : Negative for injury, bleeding, discharge, and swelling, MS/Extremity: Negative for injury and deformity, Skin: Negative for injury, rash, and discoloration, Neuro: Negative for headache, weakness, numbness, tingling, and seizure, Psych: Negative for depression, anxiety, suicide ideation, homicidal ideation, and hallucinations, Allergy/Immunology: Negative for hives, rash, and allergies, Endocrine: Negative for neck swelling, polydipsia, polyuria, polyphagia, and marked weight changes, Hematologic/Lymphatic: Negative for swollen nodes, abnormal bleeding, and unusual bruising. 11:17 Cardiovascular: Positive for chest pain, of the chest. 11:17 Respiratory: Positive for shortness of breath, at rest. 11:17 MS/extremity: Negative for acute changes. Exam: 11:17 Constitutional: This is a well developed, well nourished patient who is awake, alert, saman and in no acute distress. Head/Face: Normocephalic, atraumatic. Eyes: Pupils equal round and reactive to light, extra-ocular motions intact. Lids and lashes normal. Conjunctiva and sclera are non-icteric and not injected. Cornea within normal limits. Periorbital areas with no swelling, redness, or edema. ENT: Nares patent. No nasal discharge, no septal abnormalities noted. Tympanic membranes are normal and external auditory canals are clear. Oropharynx with no redness, swelling, or masses, exudates, or evidence of obstruction, uvula midline. Mucous membranes moist. Neck: Trachea midline, no thyromegaly or masses palpated, and no cervical lymphadenopathy. Supple, full range of motion without nuchal rigidity, or vertebral point tenderness. No Meningismus. Chest/axilla: Normal chest wall appearance and motion. Nontender with no deformity. No lesions are appreciated. Cardiovascular: Regular rate and rhythm with a normal S1 and S2. No gallops, murmurs, or rubs. Normal PMI, no JVD. No pulse deficits. Respiratory: Lungs have equal breath sounds bilaterally, clear to auscultation and percussion. No rales, rhonchi or wheezes noted. No increased work of breathing, no retractions or nasal flaring. Abdomen/GI: Soft, non-tender, with normal bowel sounds. No distension or tympany. No guarding or rebound. No evidence of tenderness throughout. Back: No spinal tenderness. No costovertebral tenderness. Full range of motion. Skin: Warm, dry with normal turgor. Normal color with no rashes, no lesions, and no evidence of cellulitis. MS/ Extremity: Pulses equal, no cyanosis. Neurovascular intact. Full, normal range of motion. Neuro: Awake and alert, GCS 15, oriented to person, place, time, and situation. Cranial nerves II-XII grossly intact. Motor strength 5/5 in all extremities. Sensory grossly intact. Cerebellar exam normal. Normal gait. Psych: Awake, alert, with orientation to person, place and time. Behavior, mood, and affect are within normal limits. Vital Signs: 10:05 BP 138 / 87; Pulse 91; Resp 20; Temp 97.6; Pulse Ox 100% on R/A; Weight 67.13 kg; em Height 5 ft. 2 in. (157.48 cm); Pain 0/10; 11:00 BP 123 / 93; Pulse 80; Resp 16; Pulse Ox 98% on R/A; em 11:50 BP 126 / 47; Pulse 76; Resp 18; Pulse Ox 98% on R/A; Pain 0/10; em 13:13 BP 144 / 69; Pulse 73; Resp 18; Pulse Ox 99% on R/A; em 14:48 BP 115 / 55; Pulse 79; Resp 18; Pulse Ox 99% on R/A; em 10:05 Body Mass Index 27.07 (67.13 kg, 157.48 cm) em MDM: 10:02 Patient medically screened. [facility] 11:19 Data reviewed: vital signs, nurses notes, lab test result(s), EKG, radiologic studies, [facility] CT scan, plain films. 03/08 10:05 Order name: Basic Metabolic Panel; Complete Time: 11:15 [facility] 03/08 10:05 Order name: CBC with Diff; Complete Time: 11:15 [facility] 03/08 10:05 Order name: LFT's; Complete Time: 11:15 [facility] 03/08 10:05 Order name: Magnesium; Complete Time: 11:15 [facility] 03/08 10:05 Order name: NT PRO-BNP; Complete Time: 11:15 [facility] 03/08 10:05 Order name: PT-INR; Complete Time: 11:15 [facility] 03/08 10:05 Order name: Troponin (emerg Dept Use Only); Complete Time: 11:15 [facility] 03/08 10:05 Order name: XRAY Chest (1 view); Complete Time: 11:15 [facility] 03/08 10:05 Order name: TSH; Complete Time: 11:15 [facility] 03/08 10:05 Order name: Lipase; Complete Time: 11:15 [facility] 03/08 11:16 Order name: Echo w/ Doppler [facility] 03/08 12:37 Order name: Troponin (emerg Dept Use Only); Complete Time: 14:35 [facility] 03/08 14:36 Order name: CT Aorta for Dissection [facility] 03/08 10:05 Order name: EKG; Complete Time: 10:06 [facility] 03/08 10:05 Order name: Cardiac monitoring; Complete Time: 10:09 [facility] 03/08 10:05 Order name: EKG - Nurse/Tech; Complete Time: 10:09 [facility] 03/08 10:05 Order name: IV Saline Lock; Complete Time: 10:09 [facility] 03/08 10:05 Order name: Labs collected and sent; Complete Time: 10:09 [facility] 03/08 10:05 Order name: O2 Per Protocol; Complete Time: 10:09 [facility] 03/08 10:05 Order name: O2 Sat Monitoring; Complete Time: 10:09 [facility] Administered Medications: 11:44 Drug: Aspirin 162 mg Route: PO; em 13:47 Follow up: Response: No adverse reaction em 11:46 Drug: Pepcid 20 mg Route: IVP; Site: right antecubital; ss 13:46 Follow up: Response: No adverse reaction em Disposition: 03/08/19 12:50 Hospitalization ordered by Mateus Avendano for Inpatient Admission. Preliminary diagnosis are Chest pain, unspecified, Atrial fibrillation and flutter, Dyspnea, Nausea. - Bed requested for Telemetry/MedSurg (Inpatient). - Status is Inpatient Admission. em - Condition is Stable. - Problem is new. - Symptoms have improved. UTI on Admission? No Signatures: Dispatcher [employer] EDMS Diraileenm, Erica Dustin Prasad MD MD cha Munoz, Edgar, PHYSICAL EDUCATION TEACHER PHYSICAL EDUCATION TEACHER em Maggie Foote RN RN ss Corrections: (The following items were deleted from the chart) 12:54 12:50 Hospitalization Ordered by Eagle Hugo MD for Inpatient Admission. Preliminary saman diagnosis is Chest pain, unspecified; Atrial fibrillation and flutter. Bed requested for Telemetry/MedSurg (Inpatient). Status is Inpatient Admission. Condition is Stable. Problem is new. Symptoms have improved. UTI on Admission? No. saman 12:54 12:54 03/08/2019 12:50 Hospitalization Ordered by Mateus Romana MILTON for Inpatient saman Admission. Preliminary diagnosis is Chest pain, unspecified; Atrial fibrillation and flutter. Bed requested for Telemetry/MedSurg (Inpatient). Status is Inpatient Admission. Condition is Stable. Problem is new. Symptoms have improved. UTI on Admission? No. saman 14:24 12:54 03/08/2019 12:50 Hospitalization Ordered by Mateus Avendano DO for Inpatient bd Admission. Preliminary diagnosis is Chest pain, unspecified; Atrial fibrillation and flutter; Dyspnea; Nausea. Bed requested for Telemetry/MedSurg (Inpatient). Status is Inpatient Admission. Condition is Stable. Problem is new. Symptoms have improved. UTI on Admission? No. saman 15:19 14:24 03/08/2019 12:50 Hospitalization Ordered by Mateus Avendano DO for Inpatient em Admission. Preliminary diagnosis is Chest pain, unspecified; Atrial fibrillation and flutter; Dyspnea; Nausea. Bed requested for Telemetry/MedSurg (Inpatient). Status is Inpatient Admission. Condition is Stable. Problem is new. Symptoms have improved. UTI on Admission? No. bd
--- NOTE | 2019-03-08 12:51 | ER ---
Nurse's Notes [facility] Name: Cierra Flores Age: 78 yrs Sex: Female : 1940 Arrival Date: 03/08/2019 Time: 09:59 Bed 13 Private MD: Diagnosis: Chest pain, unspecified;Atrial fibrillation and flutter;Dyspnea;Nausea Presentation: 03/08 10:02 Presenting complaint: Patient states: chest pain off and on for several days that em radiates to back and right arm, reported nausea this morning, denies pain or shortness of breath at this time. Transition of care: patient was not received from another setting of care. Onset of symptoms was February 2019. Risk Assessment: Do you want to hurt yourself or someone else? Patient reports no desire to harm self or others. Initial Sepsis Screen: Does the patient meet any 2 criteria? No. Patient's initial sepsis screen is negative. Does the patient have a suspected source of infection? No. Patient's initial sepsis screen is negative. Care prior to arrival: None. 10:02 Method Of Arrival: Wheelchair em 10:08 Acuity: ELIO 3 ss Historical: - Allergies: 10:05 Morphine; em - Home Meds: 10:40 levothyroxine 75 mcg tab 1 tab once daily [Active]; metoprolol tartrate 50 mg Oral tab em 1 tab once daily [Active]; amlodipine 5 mg tab 1 tab once daily [Active]; Pradaxa 150 mg oral cap [Active]; irbesartan-hydrochlorothiazide 300-12.5 mg Oral tab 1 tab once daily [Active]; - PMHx: 10:05 Atrial Fib; CVA; Heart Monitor; High Cholesterol; Hypertension; Hypothyroidism; em - PSHx: 10:05 Hysterectomy; Appendectomy; Cholecystectomy; em - Immunization history:: Adult Immunizations up to date. - Social history:: Smoking status: Patient/guardian denies using tobacco. - Ebola Screening: : Patient negative for fever greater than or equal to 101.5 degrees Fahrenheit, and additional compatible Ebola Virus Disease symptoms Patient denies exposure to infectious person Patient denies travel to an Ebola-affected area in the 21 days before illness onset No symptoms or risks identified at this time. - Family history:: not pertinent. Screenin:07 Abuse screen: Denies threats or abuse. Nutritional screening: No deficits noted. em Tuberculosis screening: No symptoms or risk factors identified. Fall Risk None identified. Assessment: 10:05 General: Appears in no apparent distress. comfortable, Behavior is calm, cooperative, em appropriate for age. Pain: Denies pain. Neuro: Level of Consciousness is awake, alert, obeys commands, Oriented to person, place, time, situation, Appropriate for age. Cardiovascular: Reports chest pain, Capillary refill < 3 seconds Patient's skin is warm and dry. Respiratory: Airway is patent Respiratory effort is even, unlabored, Respiratory pattern is regular, symmetrical, Denies cough. GI: Reports nausea. Derm: Skin is intact, is healthy with good turgor, Skin is pink, warm \T\ dry. Musculoskeletal: Capillary refill < 3 seconds, Range of motion: intact in all extremities. 10:58 Reassessment: Patient appears in no apparent distress at this time. Patient and/or em family updated on plan of care and expected duration. Pain level reassessed. Patient is alert, oriented x 3, equal unlabored respirations, skin warm/dry/pink. daughter at bedside. 13:13 Reassessment: Patient appears in no apparent distress at this time. Patient and/or em family updated on plan of care and expected duration. Pain level reassessed. Patient is alert, oriented x 3, equal unlabored respirations, skin warm/dry/pink. Patient denies pain at this time. 14:00 Reassessment: Patient appears in no apparent distress at this time. Patient and/or em family updated on plan of care and expected duration. Pain level reassessed. Patient is alert, oriented x 3, equal unlabored respirations, skin warm/dry/pink. 14:48 Reassessment: Patient appears in no apparent distress at this time. Patient and/or em family updated on plan of care and expected duration. Pain level reassessed. Patient is alert, oriented x 3, equal unlabored respirations, skin warm/dry/pink. Vital Signs: 10:05 BP 138 / 87; Pulse 91; Resp 20; Temp 97.6; Pulse Ox 100% on R/A; Weight 67.13 kg; em Height 5 ft. 2 in. (157.48 cm); Pain 0/10; 11:00 BP 123 / 93; Pulse 80; Resp 16; Pulse Ox 98% on R/A; em 11:50 BP 126 / 47; Pulse 76; Resp 18; Pulse Ox 98% on R/A; Pain 0/10; em 13:13 BP 144 / 69; Pulse 73; Resp 18; Pulse Ox 99% on R/A; em 14:48 BP 115 / 55; Pulse 79; Resp 18; Pulse Ox 99% on R/A; em 10:05 Body Mass Index 27.07 (67.13 kg, 157.48 cm) em ED Course: 09:59 Patient arrived in ED. bd 10:02 Dustin James MD is Attending Physician. saman 10:02 Refugio Murphy LVN is Primary Nurse. em 10:05 Arm band placed on. em 10:07 Patient has correct armband on for positive identification. Placed in gown. Bed in low em position. Call light in reach. Adult w/ patient. engine monitor on. Pulse ox on. NIBP on. 10:08 Triage completed. ss 10:14 EKG done, by ED staff, reviewed by Dustin James MD. jb1 10:21 X-ray completed. Portable x-ray completed in exam room. Patient tolerated procedure jb2 well. 10:22 XRAY Chest (1 view) In Process Unspecified. EDMS 10:25 Initial lab(s) drawn, by me, sent to lab. Inserted saline lock: 22 gauge in right em antecubital area, using aseptic technique. Blood collected. 12:49 Eagle Hugo MD is Hospitalizing Provider. saman 12:54 Mateus Avendano DO is Hospitalizing Provider. saman 15:04 No provider procedures requiring assistance completed. Patient admitted, IV remains in em place. Administered Medications: 11:44 Drug: Aspirin 162 mg Route: PO; em 13:47 Follow up: Response: No adverse reaction em 11:46 Drug: Pepcid 20 mg Route: IVP; Site: right antecubital; ss 13:46 Follow up: Response: No adverse reaction em Outcome: 12:50 Decision to Hospitalize by Provider. saman 15:04 Admitted to Tele accompanied by tech, family with patient, via wheelchair, room 405, em with chart, Report called to TISHA Cruz 15:04 Condition: good 15:04 Instructed on the need for admit, Demonstrated understanding of instructions. 15:19 Patient left the ED. em Signatures: Dispatcher [employer] Elver Pa jb1 Erica Gray Corey, MD MD cha Buechter, Jesse jb2 Refugio Murphy, Maggie Garrido LVN, TISHA RN ss
--- NOTE | 2019-03-08 15:12 | P.HP ---
Certification for Inpatient Patient admitted to: Observation With expected LOS: <2 Midnights Patient will require the following post-hospital care: None Practitioner: I am a practitioner with admitting privileges, knowledge of patient current condition, hospital course, and medical plan of care. Services: Services provided to patient in accordance with Admission requirements found in Title 42 Section 412.3 of the Code of Federal Regulations Patient History Date of Service: 03/08/19 Primary Care Provider: Dr. Isidro; Cardiology-Dr. Matos Reason for admission: Chest pain History of Present Illness: 70-year-old female with history of atrial fibrillation on chronic anti coagulation therapy, history of cardiac ablation, hypertension and prior CVA. Patient reported chest pain to the substernal region. It started a couple months ago but has gotten worse. She has not followed up with cardiology. Chest pain has been getting worse. It comes and goes. Today chest pain was to the substernal region. Associated with some dizziness but no vomiting. Pain would occur at rest. In the ER patient evaluated. No significant EKG changes noted. Troponin unremarkable. Initial lab shows sodium 136, potassium 3.9, creatinine 1.19 with a GFR 44. Chest x-ray unremarkable. Tsh 0.65. Patient admitted for observation. When I saw the patient ER, she was without significant chest pain. Patient stable this time. Allergies morphine Allergy (Intermediate, Verified 10/29/11 15:17) SYNCOPE Home medications list reviewed: Yes Home Medications: Metoprolol Succinate [Toprol Xl] 100 mg PO DAILY 10/30/11 Irbesartan/Hydrochlorothiazide [Avalide 300-12.5 mg Tablet] 1 tab PO DAILY 06/20 Amiodarone HCl [Pacerone] 200 mg PO DAILY 10/20/16 Atorvastatin Calcium [Lipitor] 80 mg PO BEDTIME 10/20/16 Dabigatran Etexilate Mesylate [Pradaxa*] 150 mg PO 0700,1900 cap 11/08/16 Levothyroxine [Synthroid*] 0.075 mg PO [id number] #30 tab 11/08/16 - Past Medical/Surgical History Diabetic: No -: History of diverticulosis -: HTN -: Prior CVA -: Hyperlipidemia -: Atrial fibrillation -: Chronic anti coagulation therapy -: Hypothyroidism -: Cardiac ablation -: bob cataract SX -: bladder mesh -: cardiac cath -: miguelina -: appendectomy -: hernia sx -: hysterectomy Psychosocial/ Personal History: Patient is - Family History Sister -: Heart disease, Hypertension, Lung disease, Cancer Mother -: Heart disease, Hypertension, Stroke - Social History Smoking Status: Never smoker Alcohol use: Yes CD- Drugs: No Caffeine use: Yes Place of Residence: Home Review of Systems General: As per HPI Eyes: Unremarkable Respiratory: As per HPI Cardiovascular: Chest Pain, Light Headedness, As per HPI Gastrointestinal: Nausea, As per HPI Genitourinary: Unremarkable Musculoskeletal: Unremarkable Integumentary: Unremarkable Neurological: Unremarkable Lymphatics: Unremarkable Physical Examination - Physical Exam General: Alert, In no apparent distress, Oriented x3, Cooperative HEENT: Atraumatic Neck: Supple Respiratory: Clear to auscultation bilaterally, Normal air movement Cardiovascular: Normal pulses, Regular rate/rhythm Gastrointestinal: Normal bowel sounds, Soft and benign, Non-distended, No tenderness, No masses, No rebound, No guarding Musculoskeletal: No erythema, No tenderness, No warmth Integumentary: No tenderness/swelling, No erythema, No warmth, No cyanosis Neurological: Normal speech, Normal strength at 5/5 x4 extr, Normal tone - Studies Laboratory Data (last 24 hrs) 03/08/19 10:15: PT 16.8 H, INR 1.44 03/08/19 10:15: WBC 7.4, Hgb 14.1, Hct 42.4, Plt Count 326 03/08/19 10:15: Sodium 136, Potassium 3.9, BUN 19 H, Creatinine 1.19, Glucose 112 H, Magnesium 2.0, Total Bilirubin 0.5, AST 22, ALT 21, Alkaline Phosphatase 97, Lipase 214 Assessment and Plan - Plan Impression: Chest pain Chronic atrial fibrillation on chronic anti coagulation therapy and prior cardiac ablation Hypertension Hyperlipidemia Hypothyroidism History of CVA Plan: Chest pain: Patient will be admitted for observation. Will continue monitor telemetry and cardiac enzymes. Initial cardiac enzymes unremarkable. Will continue with her medications of metoprolol, levothyroxine, Avalide, Pradaxa, Lipitor and Norvasc. Will consult cardiology for further recommendation. Anticipate discharge tomorrow if workup unremarkable. Chronic atrial fibrillation on chronic anti coagulation therapy and prior cardiac ablation: Will continue with her current medication of Pradaxa 1 a 50 mg 1 pill twice daily and metoprolol XL 50 mg daily. Hypertension: Continue medications of metoprolol 50 mg daily, Avalide 300/12.5 mg daily, and Norvasc 5 mg daily. Hyperlipidemia: Continue with Lipitor 80 mg daily Hypothyroidism: Will check free T4. Will continue with levothyroxine 75 mg daily History of CVA: Will continue with home medication. Discharge Plan: Home Plan to discharge in: 24 Hours - Advance Directives Does patient have a Living Will: No Does patient have a Durable POA for Healthcare: No - Code Status/Comfort Care Code Status Assessed: Yes (Patient is full code) Time Spent Managing Pts Care (In Minutes): 55
--- NOTE | 2019-03-08 15:18 | RAD REPORT ---
EXAM DESCRIPTION: CT - Angio Aorta For Dissection - 03/08/2019 2:58 pm CLINICAL HISTORY: Dissection;Productive cough;Chest pain COMPARISON: Portable chest same date, CT dissection study 2011 TECHNIQUE: Dynamically enhanced 3 mm thick images of the chest, abdomen, and upper pelvis were obtai maci during administration of approximately 150mL Isovue 370 IV contrast. Sagittal and coronal reconst ruction images were generated using MIP and reviewed. Exam utilizes a protocol to evaluate entire cou rse of the aorta. All CT scans are performed using dose optimization technique as appropriate and may include automated exposure control or mA/KV adjustment according to patient size. FINDINGS: Ascending aorta is 3.7 cm in diameter similar to the 2012 study. No aortic arch acute find ing. Arch is 3 vessel configuration. There are prominent atherosclerotic changes at the origin. A 30- 40% stenosis of the left subclavian artery near its origin. Descending thoracic aorta and abdominal aorta show prominent peripheral atherosclerotic calcifications. No aneurysm, dissection or displaced calcifications. Mild common iliac artery stenoses are present. Pulmonary arteries are normal as well. No cardiomegaly, pericardial thickening or pericardial effusio n. No mass or infiltrate in the lung parenchyma. No pleural thickening, pleural effusion or pneumothorax . No abnormal mediastinal or hilar mass or lymphadenopathy seen. No chest wall mass or abnormal axillar y lymphadenopathy. Prominent atherosclerotic change present at the origin of the celiac and SMA vessels. Significant lum inal stenosis is doubtful. Inferior mesenteric artery is patent. Single renal artery supply each kidn ey. No significant stenosis identifiable. Bold No mass or abnormal lymphadenopathy. No free air, aries e fluid or inflammatory stranding. No urinary bladder abnormality. IMPRESSION: Negative CT scan of the aorta for acute or significant finding. Significant change from comparison. Atherosclerotic changes in the proximal left subclavian artery are present estimated at no greater th an 30- 40% stenosis. No other significant findings on chest, abdomen and upper pelvis examination.
[2019-03-08] MEDS ORDERED: NITROGLYCERIN 0.4 MG/TAB SL PRN (15:43)
[2019-03-08] MEDS ORDERED: ONDANSETRON 4 MG/2 ML VIAL IV PRN (15:43)
[2019-03-08] MEDS ORDERED: ACETAMINOPHEN 500 MG TAB PO PRN (15:43)
[2019-03-08 16:30] VITALS: BMI 27.3
[2019-03-08 17:32] LABS: Urine Appearance CLEAR; Urine Bilirubin NEGATIVE (NEG); Urine Blood NEGATIVE (NEG); Urine Color YELLOW; Urine Glucose NEGATIVE (NEG); Urine Protein NEGATIVE (NEG); Urine Specific Gravity >=1.030 (1.005-1.030); Urine Urobilinogen 0.2 mg/dL (0.2-1.0); Urine pH 6.5 (5.0-7.0)
[2019-03-08 17:52] LABS: Urine Microscopic Reflex ORDER UMIC
[2019-03-08 17:56] LABS: Urine Bacteria <20 /HPF (<20); Urine Culture Reflex Order NOT NEEDED; Urine RBC <5 /HPF (NONE SEEN)
[2019-03-08 19:41] LABS: Creatine Phosphokinase 57 U/L (26-192); Troponin I < 0.02 ng/mL (0.0-0.045)
[2019-03-08] MEDS ORDERED: ATORVASTATIN 80 MG TAB PO SCH (21:00)
--- NOTE | 2019-03-08 21:03 | CON ---
Date of Consultation: 03/08/2019 Reason For Consultation: Admitted by Dr. James through the emergency room on 03/08/2019 for chest pain and shortness of breath. I saw the patient on 03/08/2019. History Of Present Illness: Ms. Flores is a 78-year-old white woman, has had a history of atrial fibr illation, status post ablation. She is in normal sinus rhythm today, has a normal EKG. She has had a history of CVA, dyslipidemia, hypertension, and hypothyroidism. She came in with mid-epigastric ch est pain that lasted for about 2 days with some nausea, dizziness, and shortness of breath. Denied a ny vomiting, PND, orthopnea, pedal edema, or syncope. Has had occasional palpitations. Denied any f ever or chills. Past Medical History: As stated above. Allergies: NONE. Review of Systems: Negative. Social History: Negative. Family History: Negative. Medications: Include Synthroid, metoprolol, Pradaxa, Norvasc, irbesartan with hydrochlorothiazide. Physical Examination: Vital Signs: Stable. She was in sinus rhythm, afebrile, in no acute distress. HEENT: Negative. Neck: Supple. No bruit, lymphadenopathy, JVD, or thyromegaly. Chest: Clear to auscultation and percussion. Cardiac: Revealed a regular rhythm and rate. No murmurs, gallops, or rubs. Abdomen: Benign. Extremities: Revealed no clubbing, cyanosis, or edema. Diagnostic Data: That were available to me were all normal. EKG was normal. Chest x-ray was normal . Her TSH was 0.069. Impression And Plan: 1.Atypical chest pain, midepigastric, last for 2 to 3 hours with nausea and dizziness, but I believe it is gastroesophageal in nature. Her EKG is normal. Her troponin is normal. Her BNP is normal. Chest x-ray is normal. Her CT angiogram is normal. I suggest that we treat her with a proton pump i nhibitor and I think she can go home and I will have her do an outpatient stress test and echocardiog gracia. Because of the holidays, we cannot do echo or stress test in the hospital until . I do not think she needs to stay that long. 2.Atrial fibrillation, status post ablation. She remains on Pradaxa. Has had a history of CVA befo re. She has had some palpitations and I would increase her metoprolol on an as-needed basis. I woul d also lower her thyroid level, her Synthroid level because her TSH is very low. 3.History of dyslipidemia, well controlled. 4.History of hypertension, well controlled. ELLI/RADHA Voice ID: [id number] Report ID: [id number]
[2019-03-08] MEDS: DABIGATRAN 150 MG CAP PO SCH (21:13)
[2019-03-09 04:05] LABS: Magnesium 2.2 mg/dL (1.8-2.4); Potassium 4.1 mmol/L (3.5-5.1)
[2019-03-09 04:09] LABS: CKMB Creatine Kinase MB < 1.0 ng/mL (0.3-3.6); Creatine Phosphokinase 58 U/L (26-192); Troponin I < 0.02 ng/mL (0.0-0.045)
[2019-03-09] MEDS ORDERED: METOPROLOL XL 50 MG TAB PO SCH (06:00)
[2019-03-09] MEDS ORDERED: LEVOTHYROXINE SOD 0.075 MG TAB PO SCH (06:30)
[2019-03-09 07:59] VITALS: O2SAT 95
[2019-03-09] MEDS: DABIGATRAN 150 MG CAP PO SCH (08:00)
[2019-03-09 08:04] VITALS: BP 148/67
--- NOTE | 2019-03-09 08:08 | EKG ---
Test Date: 2019-03-08 Test Time: 10:02:27 Hatch Supervisor: AMY MEASUREMENT RESULTS: Intervals: Rate: 85 MI: 130 QRSD: 80 QT: 376 QTc: 447 [place]: P: -8 MI: 130 QRS: 38 T: 81 INTERPRETIVE STATEMENTS: Normal sinus rhythm Normal ECG Compared to ECG 01/05/2017 12:18:55 No significant changes Electronically Signed On 03-09-19 08:08:11 [employer] by Noble Vyas
[2019-03-09] MEDS ORDERED: AMLODIPINE 5 MG TAB PO SCH (09:00)
[2019-03-09] MEDS ORDERED: IRBESARTAN 150 MG TAB PO SCH (09:00)
[2019-03-09] MEDS ORDERED: hydroCHLOROthiazide 12.5 MG CAP PO SCH (09:00)
[2019-03-09 09:05] VITALS: TEMP 97.5
--- NOTE | 2019-03-09 09:24 | P.DS ---
Admission Date: 03/08/19 Discharge Date: 03/09/19 Primary Care Provider: Dr. Isidro; Cardiology-Dr. Matos Disposition: ROUTINE DISCHARGE Discharge Condition: GOOD Reason for Admission: Chest pain Consultations: Cardiology-Dr. Matos Procedures: CT Chest: FINDINGS: Ascending aorta is 3.7 cm in diameter similar to the 2012 study. No aortic arch acute finding. Arch is 3 vessel configuration. There are prominent atherosclerotic changes at the origin. A 30- 40% stenosis of the left subclavian artery near its origin. Descending thoracic aorta and abdominal aorta show prominent peripheral atherosclerotic calcifications. No aneurysm, dissection or displaced calcifications. Mild common iliac artery stenoses are present. Pulmonary arteries are normal as well. No cardiomegaly, pericardial thickening or pericardial effusion. No mass or infiltrate in the lung parenchyma. No pleural thickening, pleural effusion or pneumothorax. No abnormal mediastinal or hilar mass or lymphadenopathy seen. No chest wall mass or abnormal axillary lymphadenopathy. Prominent atherosclerotic change present at the origin of the celiac and SMA vessels. Significant luminal stenosis is doubtful. Inferior mesenteric artery is patent. Single renal artery supply each kidney. No significant stenosis identifiable. Bold No mass or abnormal lymphadenopathy. No free air, free fluid or inflammatory stranding. No urinary bladder abnormality. IMPRESSION: Negative CT scan of the aorta for acute or significant finding. Significant change from comparison. Atherosclerotic changes in the proximal left subclavian artery are present estimated at no greater than 30- 40% stenosis. No other significant findings on chest, abdomen and upper pelvis examination. Medical Problem List: Chest pain, atypical suspect GERD Chronic atrial fibrillation on chronic anti coagulation therapy and prior cardiac ablation Hypertension Hyperlipidemia Hypothyroidism History of CVA Peripheral vascular disease Brief History of Present Illness: 70-year-old female with history of atrial fibrillation on chronic anti coagulation therapy, history of cardiac ablation, hypertension and prior CVA. Patient reported chest pain to the substernal region. It started a couple months ago but has gotten worse. She has not followed up with cardiology. Chest pain has been getting worse. It comes and goes. Today chest pain was to the substernal region. Associated with some dizziness but no vomiting. Pain would occur at rest. In the ER patient evaluated. No significant EKG changes noted. Troponin unremarkable. Initial lab shows sodium 136, potassium 3.9, creatinine 1.19 with a GFR 44. Chest x-ray unremarkable. Tsh 0.65. Patient admitted for observation. When I saw the patient ER, she was without significant chest pain. Patient stable this time. Hospital Course: Patient presented with chest pain. Patient was observed overnight. Cardiac enzymes unremarkable. Cardiology was consulted. Cardiology recommended no inpatient intervention at this time. Cardiology suspects chest pain likely atypical. GERD likely. At discharge patient will continue with Protonix 40 mg daily. Patient will follow up with cardiology in 1-2 weeks to follow up this hospitalization. Patient will require echocardiogram and cardiac stress test as an outpatient to further address. Patient may also require GI evaluation as an outpatient if cardiac workup unremarkable. Patient with hypothyroidism. Tsh and free T4 reviewed. Levels are abnormal. Adjustments to levothyroxine have been made. Patient will go from levothyroxine 75 mcg daily to 50 mcg daily. At discharge she will continue with levothyroxine 50 mcg daily. Recommend to recheck lab-tsh and free T4 in 4- 6 weeks to monitor progress. Further adjustment can be done by her PCP. Patient with hypertension. At discharge she will continue with her current home medications of metoprolol XL 50 mg daily and Avalide 300/12.5 mg daily. Further adjustment can be done by her PCP. Patient with hyperlipidemia. LDL elevated. At discharge she will continue with Lipitor 40 mg daily. Patient with history of CVA and peripheral vascular disease. Recommend follow up with cardiology as directed. Patient with chronic atrial fibrillation on chronic anti coagulation therapy and prior cardiac ablation. Patient will continue with rate control medication metoprolol XL 50 mg daily and Pradaxa 150 mg twice daily. Vital Signs/Physical Exam: Temp Pulse Resp BP Pulse Ox 97.5 F 70 16 148/67 H 97 03/09/19 08:00 03/09/19 08:01 03/09/19 08:00 03/09/19 08:01 03/09/19 08:00 General: Alert, In no apparent distress, Oriented x3, Cooperative HEENT: Atraumatic Neck: Supple Respiratory: Clear to auscultation bilaterally, Normal air movement Cardiovascular: Normal pulses, Regular rate/rhythm Gastrointestinal: Normal bowel sounds, Soft and benign, Non-distended, No tenderness, No masses, No rebound, No guarding Musculoskeletal: No erythema, No tenderness, No warmth Integumentary: No tenderness/swelling, No erythema, No warmth, No cyanosis Neurological: Normal speech, Normal strength at 5/5 x4 extr, Normal tone, Normal affect Laboratory Data at Discharge: WBC 7.4 K/uL (4.3-10.9) 03/08/19 10:15 Hgb 14.1 g/dL (12.0-15.0) 03/08/19 10:15 Hct 42.4 % (36.0-45.0) 03/08/19 10:15 Plt Count 326 K/uL (152-406) 03/08/19 10:15 PT 16.8 SECONDS (9.5-12.5) H 03/08/19 10:15 INR 1.44 03/08/19 10:15 Sodium 137 mmol/L (136-145) 03/09/19 03:14 Potassium 4.1 mmol/L (3.5-5.1) 03/09/19 03:14 BUN 18 mg/dL (7-18) 03/09/19 03:14 Creatinine 1.24 mg/dL (0.55-1.3) 03/09/19 03:14 Glucose 103 mg/dL (74-106) 03/09/19 03:14 Magnesium 2.2 mg/dL (1.8-2.4) 03/09/19 03:14 Total Bilirubin 0.5 mg/dL (0.2-1.0) 03/08/19 10:15 AST 22 U/L (15-37) 03/08/19 10:15 ALT 21 U/L (12-78) 03/08/19 10:15 Alkaline Phosphatase 97 U/L (45-117) 03/08/19 10:15 Troponin I < 0.02 ng/mL (0.0-0.045) 03/09/19 03:14 Triglycerides 132 mg/dL (<150) 03/09/19 03:14 Cholesterol 209 mg/dL (<200) H 03/09/19 03:14 HDL Cholesterol 38 mg/dL (40-60) L 03/09/19 03:14 Cholesterol/HDL Ratio 5.50 03/09/19 03:14 Lipase 214 U/L (73-393) 03/08/19 10:15 Home Medications: Metoprolol Succinate [Toprol Xl] 50 mg PO DAILY 10/30/11 Irbesartan/Hydrochlorothiazide [Avalide 300-12.5 mg Tablet] 1 tab PO DAILY 06/20 Dabigatran Etexilate Mesylate [Pradaxa*] 150 mg PO BID 03/08/19 Atorvastatin Calcium [Lipitor] 40 mg PO DAILY #30 tablet 03/09/19 Levothyroxine [Synthroid*] 50 mcg PO [id number] #30 tablet 03/09/19 Pantoprazole [Protonix Tab] 40 mg PO DAILY #30 tab 03/09/19 New Medications: Atorvastatin Calcium [Lipitor] 40 mg PO DAILY #30 tablet Levothyroxine [Synthroid*] 50 mcg PO [id number] #30 tablet Pantoprazole [Protonix Tab] 40 mg PO DAILY #30 tab Patient Discharge Instructions: 1. Patient will follow up with her PCP in 1 week to follow up this hospitalization. 2. Patient presented with chest pain. Patient was observed overnight. Cardiac enzymes unremarkable. Cardiology was consulted. Cardiology recommended no inpatient intervention at this time. Cardiology suspects chest pain likely atypical. GERD likely. At discharge patient will continue with Protonix 40 mg daily. Patient will follow up with cardiology in 1-2 weeks to follow up this hospitalization. Patient will require echocardiogram and cardiac stress test as an outpatient to further address. Patient may also require GI evaluation as an outpatient if cardiac workup unremarkable. 3. Patient with hypothyroidism. Tsh and free T4 reviewed. Levels are abnormal. Adjustments to levothyroxine have been made. Patient will go from levothyroxine 75 mcg daily to 50 mcg daily. At discharge she will continue with levothyroxine 50 mcg daily. Recommend to recheck lab- tsh and free T4 in 4-6 weeks to monitor progress. Further adjustment can be done by her PCP. 4. Patient with hypertension. At discharge she will continue with her current home medications of metoprolol XL 50 mg daily and Avalide 300/12.5 mg daily. Further adjustment can be done by her PCP. 5. Patient with hyperlipidemia. LDL elevated. At discharge she will continue with Lipitor 40 mg daily. 6. Patient with history of CVA and peripheral vascular disease. Recommend follow up with cardiology as directed. 7. Patient with chronic atrial fibrillation on chronic anti coagulation therapy and prior cardiac ablation. Patient will continue with rate control medication metoprolol XL 50 mg daily and Pradaxa 150 mg twice daily. Diet: AHA Activity: Ad pat Time spent managing pt's care (in minutes): 55
[2019-03-10] MEDS ORDERED: LEVOTHYROXINE SOD 0.05 MG TABLET PO SCH (06:30)
== END 2019-03-09 11:10 | disposition home or self-care (01) ==
LOC: ER 09:56 → ERHOLD 13:46 → 4TH 15:05
PROVIDERS: ADMIT Family Medicine; ATTEND Family Medicine
DX: R07.89 Other chest pain (principal); I48.20 Chronic atrial fibrillation, unspecified; Z79.01 Long term (current) use of anticoagulants; I10 Essential (primary) hypertension; E78.5 Hyperlipidemia, unspecified; E03.9 Hypothyroidism, unspecified; Z86.73 Personal history of transient ischemic attack (TIA), and cerebral infarction without residual deficits; I73.9 Peripheral vascular disease, unspecified
CPT/HCPCS: 93005; 85025; 80048 ×2; 36415; 83735 ×2; 82550 ×2; 85610; 80061; 80076; 84443; 84484 ×4; 82553 ×2; 84439; 83690; 83880; 71275; 74175; 71045; 96374; 99285; Q9967; G0378 ×3; 81003; 81015

== ENCOUNTER 2020-02-09 13:34 | Emergency (ER) | payer OTHER ==
[2011-10-30 11:41] VITALS: BP 137/66
--- OUTSIDE RECORDS SUMMARY | 2020-02-09 13:36 | XMS REPORT | Clinical Summary ---
:1940 Author Organization [facility] Address [address] [place] [address] Care Team Providers Name Role Phone Elver Isidro Primary Care Provider Allergies No Known Allergies Medications Medication Sig Dispensed Refills Start Date End Date Status metoprolol (TOPROL-XL) Take 50 mg by 0 Active 100 MG 24 hr tablet mouth daily . irbesartan-hydrochlorot Take 1 tablet by 0 6 Active hiazide (AVALIDE) mouth daily. 300-12.5 mg per tablet atorvastatin (LIPITOR) Take 8 tablets 30 tablet 0 01/04/2016 Active 10 MG tablet (80 mg total) by mouth daily. levothyroxine Take 50 mcg by 0 A ctive (SYNTHROID, LEVOTHROID) mouth Every 50 MCG tablet morning on an empty stomach. dabigatran (PRADAXA) Take by mouth 2 0 Active 150 mg Cap capsule (two) times daily. amiodarone (PACERONE) Take 200 mg by 0 Active 200 MG tablet mouth daily. pantoprazole (PROTONIX) Take 1 tablet (40 30 tablet 0 02/19/20 17 Active 40 MG tablet mg total) by mouth daily. 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 Social History Tobacco Use Types Packs/Day Years Used Date Never Smoker Smokeless Tobacco: Never Used Alcohol Use Drinks/Week oz/Week Comments No Sex Assigned at Date Recorded Not on file Last Filed Vital Signs Not on file Plan of Treatment Health Maintenance Due Date Last Done Comments PNEUMOCOCCAL 65+ YRS (1 of 1 - [id number]) 2005 MEDICARE ANNUAL WELLNESS (YEAR 2 or FIRST YEAR if no 05/08/2006 IPPE) INFLUENZA VACCINE (#1) 2019 Results Not on fileafter 02/08/2019 Advance Directives For more information, please contact: [phone] Code Status Date Activated Date Inactivated Comments Full Code 02/17/2017 8:30 PM 02/18/2017 3:19 PM This code status was determined by: Patient Full Code 02/17/2017 6:36 AM 02/17/2017 8:30 PM This code status was determined by: Patient Full Code 01/01/2016 5:19 PM 01/04/2016 5:07 PM This code status was determined by: Patient
--- OUTSIDE RECORDS SUMMARY | 2020-02-09 13:36 | XMS REPORT | Continuity of Care Document ---
:1940 Author Organization [facility] t Address [address] [place] [address] Care Team Providers Name Role Phone Elver Isidro Primary Care Physician NASABRINA Attending Clinician Unavailable NAZERI Admitting Clinician Unavailable Problems Condition Condition Condition Status Onset Resolution Last Treating Co mments Source Name Details Category Date Date Treatment Clinician Date Atrial Atrial Disease Active 2016-[address] [facility] fibrillati fibrillati 2-12 Funmilayo kes - on on 00:00: Medical 00 Center Acute Acute Disease Active 2015-[address] [facility] ischemic ischemic 0-25 [facility] right MCA right MCA 00:00: [facility] stroke stroke 00 Center Closed Closed Problem Active [facility] displaced displaced [facility] - fracture fracture Memori a of of l proximal proximal Outpat i phalanx of phalanx of en t lesser toe lesser toe Cl inics of left of left foot, foot, initial initial encounter encounter Pain in Pain in Problem Active [facility] toe of toe of [facility] - left foot left foot [facility] [place] [facility] Pain in Pain in Diagnosis Active [facility] - left knee left knee [facility] [place] [facility] Left Left Diagnosis Active [facility] sciatic sciatic [facility] - nerve pain nerve pain [facility] Allergies, Adverse Reactions, Alerts Allergy Allergy Status Severity Reaction(s) Onset Inactive Treating Comm ents Source Name Type Date Date Clinician MORPHINE Adverse Active Info Not [facility] Reaction Available [facility] Social History Social Habit Start Date Stop Date Quantity Comments Source Sex Assigned At [facility] Tobacco use and 2017-02-18 2017-02-[address] [facility] [address] Funmil[facility] kes - exposure 00:00:00 00:00:00 Medical Center Alcohol intake 2017-02-18 2017-02-[address] [facility] Nya es - 00:00:00 00:00:00 non-drinker of Medical Ce nter alcohol (finding) Smoking Status Start Date Stop Date Source Never [facility] Medications Ordered Filled Start Stop Current Ordering Indication Dosage Frequency Signature Comments Components Source Medication Medication Date Date Medication? Clinician (SIG) Name Name Pradaxa Pradaxa 2017-03 Yes Sreekanth [address] [facility] 0-10 Shukla [facility] - 00:[facility]: [facility] 00 [facility] ent Clinics metoprolol 2016-03 Yes 50mg QD Take [address] (TOPROL-XL) 2-13 by mouth Luke s - 100 MG 24 13:19: daily . Medic al hr tablet 31 Center levothyroxi 2016-03 Yes 50ug Take [address] [facility] ne 2-13 mcg by [facility] - (SYNTHROID, 13:19: mouth Medic al LEVOTHROID) 31 Every Center 50 MCG morning on tablet an empty stomach. dabigatran 2016-03 Yes Q.5D Take by [facility] (PRADAXA) 2-13 mouth 2 [facility] - 150 mg Cap 13:19: (two) Medica l capsule 31 times Center daily. amiodarone 2016-03 Yes 200mg QD Take [address] (PACERONE) 2-13 mg by [facility] - 200 MG 13:19: mouth Medical tablet 31 daily. Center pantoprazol 2016-03 Yes 40mg QD Take [address] [facility] e 2-13 tablet (40 [facility] - (PROTONIX) 00:00: mg total) Me dical 40 MG 00 by mouth Center tablet daily. atorvastati 2015-03 Yes 80mg QD Take [address] n (LIPITOR) 0-28 tablets [facility] - 10 MG 00:00: (80 mg Medical tablet 00 total) by Center mouth daily. irbesartan- 2015-03 Yes 1{tbl} QD Take [address] hydrochloro 0-17 tablet by Nya es - thiazide 00:00: mouth Medical (AVALIDE) 00 daily. Center 300-12.5 mg per tablet Atorvastati Atorvastati Yes Sreekanth not [facility] n Calcium n Calcium Shukla defined [facility] Metoprolol Metoprolol Yes Sreekanth not [facility] Succinate Succinate Shukla defined [facility] - ER ER [facility] Clinics Levothyroxi Levothyroxi Yes Sreekanth not [facility] ne Sodium ne Sodium Shukla defined [facility] - [facility]ics Amlodipine Amlodipine Yes Sreekanth not [facility] Besylate Besylate Shukla defined Funmilayo kes - Memoria l [facility] Irbesartan- Irbesartan- Yes Sreekanth not [facility] Hydrochloro Hydrochloro Shukla defined [facility] - thiazide thiazide Memoria l [facility] Procedures This patient has no known procedures. Plan of Care Planned Activity Planned Date Details Comments Source Future Scheduled 2019-11-08 INFLUENZA VACCINE (#1) [facility] Test 00:00:00 [code = INFLUENZA Medical Ce nter VACCINE (#1)] Future Scheduled 2006-05-[address] [facility] - Test 00:00:00 WELLNESS (YEAR 2 or Medical Center FIRST YEAR if no IPPE) [code = MEDICARE ANNUAL WELLNESS (YEAR 2 or FIRST YEAR if no IPPE)] Future Scheduled 2005 PNEUMOCOCCAL 65+ [facility]RS [facility] - Test 00:00:00 (1 of 1 - Medical Center [id number]) [code = PNEUMOCOCCAL 65+ YRS (1 of 1 - [id number])] Encounters Start End Encounter Admission Attending Care Care Encounter Source Date/Time Date/Time Type Type Clinicians Facility Department ID 2018-10-06 2018-10-06 Outpatient Maurilio Hodge [id number] [address] 11:00:00 11:00:00 [facility] 2017-12-16 2017-12-16 Outpatient Maurilio Hodge [id number] 08:30:00 08:30:00 t [facility] Results Test Description Test Time Test Comments Results Result Comments Source CBC (HEMOGRAM ONLY) 2017-02-18 07:41:00 Test Item Value Reference Range Interpretation Comme nts WHITE BLOOD CELL COUNT (BEAKER) 9.7 K/ L 3.5-10.5 (test code = 775) RED BLOOD CELL COUNT (BEAKER) 3.12 M/ L 3.93-5.22 L (test code = 761) HEMOGLOBIN (BEAKER) (test code 9.5 GM/DL 11.2-15.7 L = 410) HEMATOCRIT (BEAKER) (test code 29.5 % 34.1-44.9 L = 411) MEAN CORPUSCULAR VOLUME 94.6 fL 79.4-94.8 (BEAKER) (test code = 753) MEAN CORPUSCULAR HEMOGLOBIN 30.4 pg 25.6-32.2 (BEAKER) (test code = 751) MEAN CORPUSCULAR HEMOGLOBIN 32.2 GM/DL 32.2-35.5 CONC (BEAKER) (test code = 752) RED CELL DISTRIBUTION WIDTH 13.1 % 11.7-14.4 (BEAKER) (test code = 412) PLATELET COUNT (BEAKER) (test 241 K/CU MM 150-450 Discordant result compared to code = 756) previous result ; clinical correlation req uired. MEAN PLATELET VOLUME (BEAKER) 10.9 fL 9.4-12.3 (test code = 754) NUCLEATED RED BLOOD CELLS 0 /100 WBC 0-0 (BEAKER) (test code = 413) [id number] 07:13:00 Test Item Value Reference Range Interpretation Comments BLOOD UREA NITROGEN (BEAKER) (test 15 mg/dL 7-21 code = 354) [id number] 07:13:00 Test Item Value Reference Range Interpretation Comments SODIUM (BEAKER) (test code = 381) 138 meq/L 136-145 POTASSIUM (BEAKER) (test code = 4.0 meq/L 3.5-5.1 379) CHLORIDE (BEAKER) (test code = 382) 108 meq/L 98-107 H CO2 (BEAKER) (test code = 355) 23 meq/L 22-29 [id number] 07:13:00 Test Item Value Reference Range Interpretation Comments CREATININE (BEAKER) 0.95 mg/dL 0.57-1.25 (test code = 358) EGFR (BEAKER) (test 57 mL/min/1.73 ESTIMA FARIHA GFR IS code = 1092) sq m NOT ACCURATE CREATININE CLEARANCE IN PREDICTING GLOMERULAR FILTRATION RATE . ESTIMATED GFR I S NOT APPLICABLE FOR DIALYSIS PATIEN TS. [id number] 07:07:00 Test Item Value Reference Range Interpretation Comments PARTIAL THROMBOPLASTIN TIME 64.7 seconds 22.5-36.0 H (BEAKER) (test code = 760) [id number] 02:43:00 Test Item Value Reference Range Interpretation Comments PARTIAL THROMBOPLASTIN TIME 38.0 seconds 22.5-36.0 H (BEAKER) (test code = 760) Prior to initiating [id number] 17:59:00 Test Item Value Reference Range Interpretation Comments ACTIVATED CLOTTING TIME 131 sec TEST ED AT [place] [address] ([facility]) (test code = JUAN Rick [place] [address]) [id number] 17:14:00 Test Item Value Reference Range Interpretation Comments ACTIVATED CLOTTING TIME 329 sec TEST ED AT [place] [address] ([facility]) (test code = [place] [address]) [id number] 17:14:00 Test Item Value Reference Range Interpretation Comments ACTIVATED CLOTTING TIME 334 sec TEST ED AT [place] [address] ([facility]) (test code = JU[place] [address]) [id number] 17:14:00 Test Item Value Reference Range Interpretation Comments ACTIVATED CLOTTING TIME 345 sec TEST ED AT [place] [address] ([facility]) (test code = [place] [address]) [id number] 17:14:00 Test Item Value Reference Range Interpretation Comments ACTIVATED CLOTTING TIME 274 sec TEST ED AT [place] [address] ([facility]) (test code = JUAN [place] [address]) [id number] BASIC METABOLIC [id number] 07:16:00 Test Item Value Reference Range Interpretation Comments SODIUM (BEAKER) 140 meq/L 136-145 (test code = 381) POTASSIUM (BEAKER) 3.9 meq/L 3.5-5.1 (test code = 379) CHLORIDE (BEAKER) 105 meq/L 98-107 (test code = 382) CO2 (BEAKER) (test 26 meq/L 22-29 code = 355) BLOOD UREA NITROGEN 20 mg/dL 7-21 (BEAKER) (test code = 354) CREATININE (BEAKER) 1.32 mg/dL 0.57-1.25 H (test code = 358) GLUCOSE RANDOM 113 mg/dL 70-105 H (BEAKER) (test code = 652) CALCIUM (BEAKER) 9.5 mg/dL 8.4-10.2 (test code = 697) EGFR (BEAKER) (test 39 mL/min/1.73 ESTIMA FARIHA GFR IS code = 1092) sq m NOT ACCURATE CREATININE CLEARANCE IN PREDICTING GLOMERULAR FILTRATION RATE . ESTIMATED GFR I S NOT APPLICABLE FOR DIALYSIS PATIEN TS. PROTHROMBIN [id number] 07:07:00 Test Item Value Reference Range Interpretation Comments PROTIME (BEAKER) (test code = 14.8 seconds 11.7-14.7 H 759) INR (BEAKER) (test code = 370) 1.2 <=5.9 RECOMMENDED COUMADIN/WARFARIN INR THERAPY RANGESSTANDARD DOSE: 2.0 - 3.0 Includes: PROPHYLAXIS forvenous thrombosis, systemic embolization; TREATMENT for venous thrombosis and/or pulmonary embolus.HIGH RISK: Target INR is 2.5-3.5 for patients with mechanical heart valves.Within 24 hours, if on CoumadinCBC W/PLT COUNT & AUTO [id number] 07:00:00 Test Item Value Reference Range Interpretation Comments WHITE BLOOD CELL COUNT (BEAKER) 6.6 K/ L 3.5-10.5 (test code = 775) RED BLOOD CELL COUNT (BEAKER) 4.05 M/ L 3.93-5.22 (test code = 761) HEMOGLOBIN (BEAKER) (test code = 12.4 GM/DL 11.2-15.7 410) HEMATOCRIT (BEAKER) (test code = 37.6 % 34.1-44.9 411) MEAN CORPUSCULAR VOLUME (BEAKER) 92.8 fL 79.4-94.8 (test code = 753) MEAN CORPUSCULAR HEMOGLOBIN 30.6 pg 25.6-32.2 (BEAKER) (test code = 751) MEAN CORPUSCULAR HEMOGLOBIN CONC 33.0 GM/DL 32.2-35.5 (BEAKER) (test code = 752) RED CELL DISTRIBUTION WIDTH 12.6 % 11.7-14.4 (BEAKER) (test code = 412) PLATELET COUNT (BEAKER) (test 296 K/CU MM 150-450 code = 756) MEAN PLATELET VOLUME (BEAKER) 10.0 fL 9.4-12.3 (test code = 754) NUCLEATED RED BLOOD CELLS 0 /100 WBC 0-0 (BEAKER) (test code = 413) NEUTROPHILS RELATIVE PERCENT 67 % (BEAKER) (test code = 429) LYMPHOCYTES RELATIVE PERCENT 25 % (BEAKER) (test code = 430) MONOCYTES RELATIVE PERCENT 6 % (BEAKER) (test code = 431) EOSINOPHILS RELATIVE PERCENT 1 % (BEAKER) (test code = 432) BASOPHILS RELATIVE PERCENT 1 % (BEAKER) (test code = 437) NEUTROPHILS ABSOLUTE COUNT 4.42 K/ L 1.56-6.13 (BEAKER) (test code = 670) LYMPHOCYTES ABSOLUTE COUNT 1.65 K/ L 1.18-3.74 (BEAKER) (test code = 414) MONOCYTES ABSOLUTE COUNT (BEAKER) 0.37 K/ L 0.24-0.36 H (test code = 415) EOSINOPHILS ABSOLUTE COUNT 0.07 K/ L 0.04-0.36 (BEAKER) (test code = 416) BASOPHILS ABSOLUTE COUNT (BEAKER) 0.08 K/ L 0.01-0.08 (test code = 417) IMMATURE GRANULOCYTES-RELATIVE 0 % 0-1 PERCENT (BEAKER) (test code = 0043)
--- NOTE | 2020-02-09 14:09 | RAD REPORT ---
EXAM DESCRIPTION: CT - Ct Stroke Brain Wo Cont - 02/09/2020 1:56 pm CLINICAL HISTORY: Dizziness COMPARISON: 2016 TECHNIQUE: Computed axial tomography of the head was obtained. All CT scans are performed using dose optimization technique as appropriate and may include automated exposure control or mA/KV adjustment according to patient size. FINDINGS: An intracranial bleed is not seen . The ventricles are normal in caliber. No extra-axial fluid collection is noted. Mild to moderate low-density within periventricular, deep and subcortical white matter likely ischemi c changes secondary to small vessel disease Fluid within the sphenoid sinus IMPRESSION: No acute intracranial abnormality is seen. If patient's symptoms persist MRI of the bra in would be recommended. Fluid within the sphenoid sinus may indicate acute sinusitis Wm of the emergency room was notified at 20:04 p.m. February 09, 2020
[2020-02-09 14:21] LABS: Absolute Lymphocytes (CBC) 3.3 K/uL (0.7-4.9); Basophils % 1.1 % (0-1.3); Hematocrit 37.8 % (36.0-45.0); Lymphocytes % 37.9 % (15.3-44.8); MPV 8.4 fL (7.6-11.3); Protime INR 1.23; RBC Red Blood Cell Count 4.29 M/uL (3.86-4.86)
[2020-02-09] MEDS ORDERED: ONDANSETRON 4 MG/2 ML VIAL ONE (14:21)
[2020-02-09] MEDS ORDERED: NA CHLORIDE 0.9% 250 ML ONE (14:22)
--- NOTE | 2020-02-09 14:51 | RAD REPORT ---
EXAM DESCRIPTION: Dereck Single View02/09/2020 2:05 pm CLINICAL HISTORY: Chest pain COMPARISON: 2012 FINDINGS: The lungs appear clear of acute infiltrate. The heart is normal size. shelter monitor ove rlies the lower chest IMPRESSION: No acute abnormalities displayed
--- NOTE | 2020-02-09 18:08 | RAD REPORT ---
EXAM DESCRIPTION: MRI - Brain W/Wo Cont - 02/09/2020 5:38 pm CLINICAL HISTORY: Syncope/dizziness COMPARISON: February 09, [address] TECHNIQUE: Axial, sagittal, and coronal magnetic images of the brain were obtained. 20 cc MultiHance administered intravenously FINDINGS: Mild signal within periventricular, deep and subcortical white matter probably ischemic c hanges secondary to small vessel disease The ventricles are normal in caliber. Diffusion-weighted/ ADC mapping sequences do not demonstrate evidence of an acute infarction. No abnormal enhancement within the brain is seen. An extra-axial fluid collection is not noted. Fluid within the sphenoid sinus IMPRESSION: No acute intracranial abnormality displayed Fluid within the sphenoid sinus may indicate acute sinusitis
--- NOTE | 2020-02-09 18:10 | RAD REPORT ---
EXAM DESCRIPTION: MRI - MRA Neck W/Wo Cont - 02/09/2020 5:38 pm CLINICAL HISTORY: Syncope/dizziness COMPARISON: None. TECHNIQUE: Magnetic resonance angiogram of the neck was performed. Fifteen cc MultiHance was adminis tered intravenously. 3D MIPS reconstruction performed FINDINGS: The common carotid, internal carotid and external carotid arteries do not demonstrate a si gnificant stenosis. An aneurysm is not seen. The right vertebral artery is dominant. No abnormality vertebral arteries seen IMPRESSION: No acute abnormality displayed NASCET criteria used. Mild 0-49% stenosis Moderate 50-69% stenosis Severe 70-99% stenosis
--- NOTE | 2020-02-09 18:12 | RAD REPORT ---
EXAM DESCRIPTION: MRI - MRA Head Wo Cont - 02/09/2020 5:38 pm CLINICAL HISTORY: Syncope/dizziness COMPARISON: None. TECHNIQUE: Magnetic resonance angiogram was performed. 3D MIPS reconstruction performed FINDINGS: The anterior cerebral, middle cerebral, posterior cerebral, distal internal carotid and ba silar arteries do not demonstrate a significant stenosis. An aneurysm is not displayed. IMPRESSION: Unremarkable MRA brain.
--- NOTE | 2020-02-09 18:30 | ER ---
Nurse's Notes [facility] Name: Cierra Flores Age: 79 yrs Sex: Female : 1940 Arrival Date: 02/09/2020 Time: 13:38 Bed 4 Private MD: Diagnosis: Weakness;Dizziness and giddiness Presentation: 02/08 13:38 Chief complaint: Patient states: Woke up with generalized weakness today. Pt reports aa5 she fell in the bathroom today, pt states "I just went to the bathroom and felt the room spinning on the left side and I ended up falling and couldn't get up". Pt's daughter reports her dad called her after fall at 1257 today. Pt denies head injury, denies LOC. Pt reports after fall she noticed left sided weakness. Left arm and left leg weakness noted at this time. 13:38 Acuity: ELIO 2 aa5 13:38 Method Of Arrival: Wheelchair aa5 13:38 Coronavirus screen: Client denies travel out of the [place] in the last 14 days. At this aa5 time, the client does not indicate any symptoms associated with coronavirus-19. Ebola Screen: Patient negative for fever greater than or equal to 101.5 degrees Fahrenheit, and additional compatible Ebola Virus Disease symptoms. An acute neurological deficit is present. Pre-hospital glucose is not applicable to this patient. Initial Sepsis Screen: Does the patient meet any 2 criteria? No. Patient's initial sepsis screen is negative. Does the patient have a suspected source of infection? No. Patient's initial sepsis screen is negative. Risk Assessment: Do you want to hurt yourself or someone else? Patient reports no desire to harm self or others. Onset of symptoms was February 09, 2020. Triage Assessment: 13:35 The onset of the patients symptoms was February 09, 2020 at 12:30. General: Appears in bp no apparent distress. comfortable, Behavior is cooperative, appropriate for age, anxious. Pain: Denies pain. EENT: No deficits noted. Neuro: Level of Consciousness is awake, alert, obeys commands, Oriented to person, place, time, situation, Appropriate for age Patrol Officer are weak on left Reports weakness in left leg. Cardiovascular: Rhythm is sinus rhythm. Respiratory: No deficits noted. GI: No signs and/or symptoms were reported involving the gastrointestinal system. : No signs and/or symptoms were reported regarding the genitourinary system. Derm: No deficits noted. Musculoskeletal: No deficits noted. Stroke Activation: Symptom onset < 3 hours Physician: Stroke Attending; Name: ; Notified At: ; Arrived At: Physician: Chief Stroke Resident; Name: ; Notified At: ; Arrived At: Physician: Stroke Resident; Name: ; Notified At: ; Arrived At: Physician: ED Attending; Name: ; Notified At: ; Arrived At: Physician: ED Resident; Name: ; Notified At: ; Arrived At: Historical: - Allergies: 13:38 Morphine; aa5 - Home Meds: 13:38 levothyroxine 50 mcg tab once daily [Active]; metoprolol ER 50 mg daily [Active]; aa5 amlodipine 5 mg tab 1 tab once daily [Active]; irbesartan-hydrochlorothiazide 300-12.5 mg oral tab once daily [Active]; Pradaxa 150 mg oral cap 1 cap 2 times per day [Active]; - PMHx: 13:38 Atrial Fib; CVA; High Cholesterol; Hypertension; Hypothyroidism; aa5 - PSHx: 13:38 Hysterectomy; Appendectomy; Cholecystectomy; aa5 - Immunization history:: Adult Immunizations up to date. - Social history:: Smoking status: Patient denies any tobacco usage or history of. Screenin:35 Abuse screen: Denies threats or abuse. Denies injuries from another. Nutritional bp screening: No deficits noted. Tuberculosis screening: No symptoms or risk factors identified. Fall Risk None identified. Assessment: 13:35 VAN Scoring: Arm Drift: Patients demonstrates NO arm weakness. Patient is VAN Negative. bp Visual Disturbance: No visual disturbance noted. Aphasia: No aphasia noted. Neglect: No neglect noted. The patient has not been NPO before screening. The patient is alert, and able to follow commands. The patient does not exhibit slurred or garbled speech. The patient is not exhibiting difficulty speaking. The patient does not exhibit difficulty understanding words. The patient is able to swallow own secretions with no drooling or need for suction. Patient tolerated one teaspoon of water. No drooling, immediate coughing, gurgling, or clearing of the throat was noted. The patient tolerated 90mL of water. No drooling, immediate coughing, gurgling, or clearing of the throat was noted. The patient passed the bedside swallow screening. Oral medications may be given as ordered. Contact Physician for further diet orders. Provider notified of bedside swallow screening results: Felton Lazo MD. T-PA (Activase) Screening: Contraindications: Rapidly improving condition or minor deficit: Yes. General: SEE TRIAGE NOTE. 15:00 Reassessment: Patient appears in no apparent distress at this time. No changes from bp previously documented assessment. Patient is alert, oriented x 3, equal unlabored respirations, skin warm/dry/pink. ALL CURRENT ORDERS COMPLETE. 16:29 Reassessment: Patient appears in no apparent distress at this time. No changes from bp previously documented assessment. Patient is alert, oriented x 3, equal unlabored respirations, skin warm/dry/pink. NO CHANGE IN NEURO STATUS. 17:40 Reassessment: Patient appears in no apparent distress at this time. No changes from bp previously documented assessment. Patient is alert, oriented x 3, equal unlabored respirations, skin warm/dry/pink. PT RETURNED FROM MRI. 18:45 Reassessment: Patient is alert, oriented x 3, equal unlabored respirations, skin aa5 warm/dry/pink. Vital Signs: 13:35 BP 139 / 78; Pulse 92; Resp 19; Temp 97.8; Pulse Ox 100% ; bp 14:00 BP 129 / 65; Pulse 95; Resp 19; Pulse Ox 98% ; bp 15:00 BP 117 / 48; Pulse 89; Resp 24; Pulse Ox 97% ; bp 16:00 BP 117 / 56; Pulse 103; Resp 27; Pulse Ox 99% ; bp 17:00 BP 131 / 66; Pulse 95; Resp 21; Pulse Ox 99% ; bp NIH Stroke Scale Scores: 13:38 NIHSS Score: 1 aa5 18:33 NIHSS Score: 0 kdr ED Course: 13:35 Patient has correct armband on for positive identification. Bed in low position. Call bp light in reach. Side rails up X2. Adult w/ patient. 13:38 Patient arrived in ED. em1 13:38 Arm band placed on Patient placed in an exam room, on a stretcher. aa5 13:39 Felton Lazo MD is Attending Physician. kdr 13:45 Initial lab(s) drawn, by me, sent to lab. Inserted saline lock: 20 gauge in right aa5 forearm, using aseptic technique. Blood collected. 13:56 Triage completed. aa5 13:56 CT Stroke Brain w/o Contrast In Process Unspecified. EDMS 14:00 Raudel Calvo, RN is Primary Nurse. bp 14:03 Stroke CXR 1 View In Process Unspecified. EDMS 17:39 MRA Head Wo Cont In Process Unspecified. EDMS 17:39 MRA Neck W/Wo Cont In Process Unspecified. EDMS 17:39 Brain W/Wo Cont In Process Unspecified. EDMS 18:45 No provider procedures requiring assistance completed. IV discontinued, intact, aa5 bleeding controlled, No redness/swelling at site. Pressure dressing applied. Administered Medications: 14:13 Drug: Zofran (Ondansetron) 4 mg Route: IVP; Site: right forearm; jd3 14:14 Drug: NS 0.9% 250 ml Route: IV; Rate: bolus; Site: right forearm; jd3 Outcome: 18:30 Discharge ordered by MD. kdr 18:45 Discharged to home via wheelchair, with family. aa5 18:45 Condition: stable 18:45 Discharge instructions given to patient, Instructed on discharge instructions, follow up and referral plans. Demonstrated understanding of instructions, follow-up care. 18:52 Patient left the ED. NIH Stroke Scale - NIH Stroke Score Date: 02/09/2020 Time: 13:38 Total Score = 1 1a. Level of Consciousness (LOC) - 0(Alert) 1b. Level of Consciousness (LOC) (Year \\T\\ Age) - 0(Both) 1c. LOC Commands (Open \\T\\ Closes Eyes/Assistant Professor Of Life Sciences) - 0(Both) 2. Best Gaze (Lateral Gaze Paresis) - 0(Normal) 3. Visual Field Loss - 0(No visual loss) 4. Facial Palsy - 0(Normal) 5a. Left Arm: Motor (10-second hold) - 0(No drift) 5b. Right Arm: Motor (10-second hold) - 0(No drift) 6a. Left Leg: Motor (5-second hold - always test supine) - 1(Drift) 6b. Right Leg: Motor (5-second hold - always test supine) - 0(No drift) 7. Limb Ataxia (finger/nose \\T\\ heel/fam - test with eyes open) - 0(Absent) 8. Sensory Loss (pinprick arms/legs/face) - 0(Normal) 9. Best Language: Aphasia (description/naming/reading) - 0(No aphasia) 10. Dysarthria (speech clarity - read or repeat words) - 0(Normal) 11. Extinction and Inattention (visual/tactile/auditory/spatial/personal) - 0(No abnormality) Initials: aa5 NIH Stroke Scale - NIH Stroke Score Date: 02/09/2020 Time: 18:33 Total Score = 0 1a. Level of Consciousness (LOC) - 0(Alert) 1b. Level of Consciousness (LOC) (Year \\T\\ Age) - 0(Both) 1c. LOC Commands (Open \\T\\ Closes Eyes/Assistant Professor Of Life Sciences) - 0(Both) 2. Best Gaze (Lateral Gaze Paresis) - 0(Normal) 3. Visual Field Loss - 0(No visual loss) 4. Facial Palsy - 0(Normal) 5a. Left Arm: Motor (10-second hold) - 0(No drift) 5b. Right Arm: Motor (10-second hold) - 0(No drift) 6a. Left Leg: Motor (5-second hold - always test supine) - 0(No drift) 6b. Right Leg: Motor (5-second hold - always test supine) - 0(No drift) 7. Limb Ataxia (finger/nose \\T\\ heel/fam - test with eyes open) - 0(Absent) 8. Sensory Loss (pinprick arms/legs/face) - 0(Normal) 9. Best Language: Aphasia (description/naming/reading) - 0(No aphasia) 10. Dysarthria (speech clarity - read or repeat words) - 0(Normal) 11. Extinction and Inattention (visual/tactile/auditory/spatial/personal) - 0(No abnormality) Initials: kdr Signatures: Dispatcher [employer] EDMS Felton Lazo MD MD kdr Martinez, Eric em1 Margaret Demarco RN RN aa5 Gladys Mcgee RN RN jl7 Dafne Tate RN RN ea Davies, Jonathon, RN RN jd3 Raudel Calvo RN RN bp Corrections: (The following items were deleted from the chart) 15:12 13:35 BP 139 / 78; Pulse 92bpm; Resp 19bpm; Pulse Ox 100%; jl7 bp 17:41 17:40 Reassessment: PT IN MRI bp bp
--- NOTE | 2020-02-09 18:30 | EDPHYS ---
Physician Documentation [facility] Name: Cierra Flores Age: 79 yrs Sex: Female : 1940 Arrival Date: 02/09/2020 Time: 13:38 Bed 4 Private MD: ED Physician Felton Lazo HPI: 02/08 17:26 This 79 yrs old Female presents to ER via Wheelchair with complaints of kdr Weakness, Fall Injury. 17:26 The patient presents to the emergency department with weakness of the left upper kdr extremity, that is mild, Very slight asymmetry in strength with left weaker than right, left lower extremity, that is mild, difficulty standing, the patient is off balance, the patient falls to the left. 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 She awoke with generally feeling poorly and weakness. Then when she got up to go to the bathroom, she fell. Did not hit her head and no LOC. States she generally felt weak on the left. She currently has no focal deficits and though still feeling weak, has no focal c/o. 18:02 Context: occurred at home, occurred while the patient was at rest. Associated signs and kdr symptoms: Pertinent positives: dizziness, weakness. Severity of symptoms: At their worst the symptoms were very mild in the emergency department the symptoms have resolved. Patient's baseline: Neuro: alert and fully oriented, Motor: no deficits, Ambulation: walks without assistance, Speech: normal, The patient has a previous history of CVA. Current symptoms: Very slight weakness. The patient has not experienced similar symptoms in the past. The patient has not recently seen a physician. Historical: - Allergies: 13:38 Morphine; aa5 - Home Meds: 13:38 levothyroxine 50 mcg tab once daily [Active]; metoprolol ER 50 mg daily [Active]; aa5 amlodipine 5 mg tab 1 tab once daily [Active]; irbesartan-hydrochlorothiazide 300-12.5 mg oral tab once daily [Active]; Pradaxa 150 mg oral cap 1 cap 2 times per day [Active]; - PMHx: 13:38 Atrial Fib; CVA; High Cholesterol; Hypertension; Hypothyroidism; aa5 - PSHx: 13:38 Hysterectomy; Appendectomy; Cholecystectomy; aa5 - Immunization history:: Adult Immunizations up to date. - Social history:: Smoking status: Patient denies any tobacco usage or history of. ROS: 18:33 Constitutional: Negative for fever, chills, and weight loss, Eyes: Negative for injury, kdr pain, redness, and discharge, ENT: Negative for injury, pain, and discharge, Neck: Negative for injury, pain, and swelling, Cardiovascular: Negative for chest pain, palpitations, and edema, Respiratory: Negative for shortness of breath, cough, wheezing, and pleuritic chest pain, Abdomen/GI: Negative for abdominal pain, nausea, vomiting, diarrhea, and constipation, Back: Negative for injury and pain, : Negative for injury, bleeding, discharge, and swelling, MS/Extremity: Negative for injury and deformity, Skin: Negative for injury, rash, and discoloration, Psych: Negative for depression, anxiety, suicide ideation, homicidal ideation, and hallucinations, Allergy/Immunology: Negative for hives, rash, and allergies, Endocrine: Negative for neck swelling, polydipsia, polyuria, polyphagia, and marked weight changes, Hematologic/Lymphatic: Negative for swollen nodes, abnormal bleeding, and unusual bruising. 18:33 Neuro: Positive for dizziness, weakness. Exam: 14:16 ECG was reviewed by the Attending Physician. kdr 18:33 Constitutional: This is a well developed, well nourished patient who is awake, alert, kdr and in no acute distress. Head/Face: Normocephalic, atraumatic. Eyes: Pupils equal round and reactive to light, extra-ocular motions intact. Lids and lashes normal. Conjunctiva and sclera are non-icteric and not injected. Cornea within normal limits. Periorbital areas with no swelling, redness, or edema. ENT: Nares patent. No nasal discharge, no septal abnormalities noted. Tympanic membranes are normal and external auditory canals are clear. Oropharynx with no redness, swelling, or masses, exudates, or evidence of obstruction, uvula midline. Mucous membranes moist. Neck: Trachea midline, no thyromegaly or masses palpated, and no cervical lymphadenopathy. Supple, full range of motion without nuchal rigidity, or vertebral point tenderness. No Meningismus. Chest/axilla: Normal chest wall appearance and motion. Nontender with no deformity. No lesions are appreciated. Cardiovascular: Regular rate and rhythm with a normal S1 and S2. No gallops, murmurs, or rubs. Normal PMI, no JVD. No pulse deficits. Respiratory: Lungs have equal breath sounds bilaterally, clear to auscultation and percussion. No rales, rhonchi or wheezes noted. No increased work of breathing, no retractions or nasal flaring. Abdomen/GI: Soft, non-tender, with normal bowel sounds. No distension or tympany. No guarding or rebound. No evidence of tenderness throughout. Back: No spinal tenderness. No costovertebral tenderness. Full range of motion. Skin: Warm, dry with normal turgor. Normal color with no rashes, no lesions, and no evidence of cellulitis. MS/ Extremity: Pulses equal, no cyanosis. Neurovascular intact. Full, normal range of motion. Neuro: Awake and alert, GCS 15, oriented to person, place, time, and situation. Cranial nerves II-XII grossly intact. Motor strength 5/5 in all extremities. Sensory grossly intact. Cerebellar exam normal. Normal gait. Psych: Awake, alert, with orientation to person, place and time. Behavior, mood, and affect are within normal limits. Vital Signs: 13:35 BP 139 / 78; Pulse 92; Resp 19; Temp 97.8; Pulse Ox 100% ; bp 14:00 BP 129 / 65; Pulse 95; Resp 19; Pulse Ox 98% ; bp 15:00 BP 117 / 48; Pulse 89; Resp 24; Pulse Ox 97% ; bp 16:00 BP 117 / 56; Pulse 103; Resp 27; Pulse Ox 99% ; bp 17:00 BP 131 / 66; Pulse 95; Resp 21; Pulse Ox 99% ; bp NIH Stroke Scale Scores: 13:38 NIHSS Score: 1 aa5 18:33 NIHSS Score: 0 kdr MDM: 18:30 Patient medically screened. kdr 18:33 Data reviewed: vital signs, nurses notes, old medical records, radiologic studies. kdr Counseling: I had a detailed discussion with the patient and/or guardian regarding: the historical points, exam findings, and any diagnostic results supporting the discharge/admit diagnosis, lab results, radiology results, the need for outpatient follow up. 02/08 13:40 Order name: Basic Metabolic Panel; Complete Time: 15:18 kdr 02/08 13:40 Order name: CBC with Diff; Complete Time: 15:18 kdr 02/08 13:40 Order name: Protime (+inr); Complete Time: 15:18 kdr 02/08 13:40 Order name: Ptt, Activated; Complete Time: 15:18 kdr 02/08 13:40 Order name: CT Stroke Brain w/o Contrast; Complete Time: 15:18 kdr 02/08 13:55 Order name: Glucose, Ancillary Testing; Complete Time: 15:18 EDMS 02/08 13:40 Order name: Stroke CXR 1 View; Complete Time: 15:18 kdr 02/08 13:40 Order name: EKG; Complete Time: 13:41 kdr 02/08 15:44 Order name: MRA Head Wo Cont; Complete Time: 18:13 EDMS 02/08 15:45 Order name: MRA Neck W/Wo Cont; Complete Time: 18:13 EDMS 02/08 15:45 Order name: Brain W/Wo Cont; Complete Time: 18:13 EDMS 02/08 13:40 Order name: Accucheck; Complete Time: 14:06 kdr 02/08 13:40 Order name: Cardiac monitoring; Complete Time: 14:06 kdr 02/08 13:40 Order name: EKG - Nurse/Tech; Complete Time: 14:06 kdr 02/08 13:40 Order name: IV Saline Lock; Complete Time: 14:06 kdr 02/08 13:40 Order name: Labs collected and sent; Complete Time: 14:06 kdr 02/08 13:40 Order name: NPO; Complete Time: 14:06 kdr 02/08 13:40 Order name: O2 Per Protocol; Complete Time: 14:06 kdr 02/08 13:40 Order name: O2 Sat Monitoring; Complete Time: 14:07 kdr 02/08 13:40 Order name: Stroke Swallow Screen; Complete Time: 14:07 kdr EC:16 Rate is 100 beats/min. Rhythm is irregularly irregular, A fib with No ectopy. QRS [place] kdr is Normal. [place] interval is normal. QRS interval is normal. QT interval is normal. Clinical impression: Atrial Fibrillation. Administered Medications: 14:13 Drug: Zofran (Ondansetron) 4 mg Route: IVP; Site: right forearm; jd3 14:14 Drug: NS 0.9% 250 ml Route: IV; Rate: bolus; Site: right forearm; jd3 Disposition: 02/09/20 18:30 Discharged to Home. Impression: Weakness, Dizziness and giddiness. - Condition is Stable. - Discharge Instructions: Dizziness, Weakness. - Medication Reconciliation Form, Thank You Letter form. - Follow up: Private Physician; When: 2 - 3 days; Reason: If symptoms return, Further diagnostic work-up, Recheck today's complaints, Continuance of care, Re-evaluation by your physician. - Problem is new. - Symptoms are resolved. NIH Stroke Scale - NIH Stroke Score Date: 02/09/2020 Time: 13:38 Total Score = 1 1a. Level of Consciousness (LOC) - 0(Alert) 1b. Level of Consciousness (LOC) (Year \T\ Age) - 0(Both) 1c. 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 Best Gaze (Lateral Gaze Paresis) - 0(Normal) 3. Visual Field Loss - 0(No visual loss) 4. Facial Palsy - 0(Normal) 5a. Left Arm: Motor (10-second hold) - 0(No drift) 5b. Right Arm: Motor (10-second hold) - 0(No drift) 6a. Left Leg: Motor (5-second hold - always test supine) - 1(Drift) 6b. Right Leg: Motor (5-second hold - always test supine) - 0(No drift) 7. Limb Ataxia (finger/nose \T\ heel/fam - test with eyes open) - 0(Absent) 8. Sensory Loss (pinprick arms/legs/face) - 0(Normal) 9. Best Language: Aphasia (description/naming/reading) - 0(No aphasia) 10. Dysarthria (speech clarity - read or repeat words) - 0(Normal) 11. Extinction and Inattention (visual/tactile/auditory/spatial/personal) - 0(No abnormality) Initials: aa5 NIH Stroke Scale - NIH Stroke Score Date: 02/09/2020 Time: 18:33 Total Score = 0 1a. Level of Consciousness (LOC) - 0(Alert) 1b. Level of Consciousness (LOC) (Year \T\ Age) - 0(Both) 1c. 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 Best Gaze (Lateral Gaze Paresis) - 0(Normal) 3. Visual Field Loss - 0(No visual loss) 4. Facial Palsy - 0(Normal) 5a. Left Arm: Motor (10-second hold) - 0(No drift) 5b. Right Arm: Motor (10-second hold) - 0(No drift) 6a. Left Leg: Motor (5-second hold - always test supine) - 0(No drift) 6b. Right Leg: Motor (5-second hold - always test supine) - 0(No drift) 7. Limb Ataxia (finger/nose \T\ heel/fam - test with eyes open) - 0(Absent) 8. Sensory Loss (pinprick arms/legs/face) - 0(Normal) 9. Best Language: Aphasia (description/naming/reading) - 0(No aphasia) 10. Dysarthria (speech clarity - read or repeat words) - 0(Normal) 11. Extinction and Inattention (visual/tactile/auditory/spatial/personal) - 0(No abnormality) Initials: kdr Signatures: Dispatcher [employer] [facility] Felton Lazo MD MD kdr Margaret Demarco RN RN aa5 Dafne Tate RN RN ea Davies, Jonathon, RN RN jd3 Raudel Calvo, RN RN bp Corrections: (The following items were deleted from the chart) 15:44 13:41 MR STROKE PROTOCOL+MRI.MARYANNE.ROE ordered. [facility] 18:11 17:26 Onset: The symptoms/episode began/occurred this morning, Became worse at kdr about an hour MANAGER SEMICONDUCTOR. She awoke with generally feeling poorly and weakness. Then when she got up to go to the bathroom, she fell. Did not hit her head and no LOC. States she generally felt weak on the left., kdr 18:52 18:30 02/09/2020 18:30 Discharged to Home. Impression: Weakness; Dizziness and ea giddiness. Condition is Stable. Forms are Medication Reconciliation Form, Thank You Letter, Antibiotic Education, Prescription Opioid Use. Follow up: Private Physician; When: 2 - 3 days; Reason: If symptoms return, Further diagnostic work-up, Recheck today's complaints, Continuance of care, Re-evaluation by your physician. Problem is new. Symptoms are resolved. kdr
--- NOTE | 2020-02-11 20:06 | EKG ---
Test Date: 2020-02-09 Test Time: 13:46:35 [employer]: ADÁN MEASUREMENT RESULTS: Intervals: Rate: 100 NC: QRSD: 82 QT: 364 QTc: 469 [place]: P: NC: QRS: 66 T: 72 INTERPRETIVE STATEMENTS: Atrial fibrillation Abnormal ECG Compared to ECG 03/08/2019 10:02:27 Sinus rhythm no longer present Electronically Signed On 02-11-20 20:02:57 SENIOR LEAD [employer]AVA DEVELOPER by Jamie Matos
== END 2020-02-09 18:52 | disposition home or self-care (01) ==
LOC: ER 13:34
DX: R53.1 Weakness (principal); I10 Essential (primary) hypertension; E03.9 Hypothyroidism, unspecified; E78.00 Pure hypercholesterolemia, unspecified; I48.91 Unspecified atrial fibrillation; W19.XXXA Unspecified fall, initial encounter; Y93.89 Activity, other specified; Y92.9 Unspecified place or not applicable; Z86.73 Personal history of transient ischemic attack (TIA), and cerebral infarction without residual deficits; Z88.5 Allergy status to narcotic agent
CPT/HCPCS: 93005; 85025; 80048; 36415; 85610; 82947; 85730; 70450; 71045; 70553; 70544; 70549; 96375; 96374; 99284; A9577; J7050; J2405

== ENCOUNTER 2022-01-10 09:10 | Observation (INO) | payer OTHER ==
--- OUTSIDE RECORDS SUMMARY | 2022-01-10 09:15 | XMS REPORT | Continuity of Care Document ---
:1940 Author Organization [facility] t Address [address] [place] [address] Care Team Providers Name Role Phone Sanna Raudel Raya Primary Care Physician SHANTAL BEASLEY Attending Clinician Unavailable SHANTAL BEASLEY Admitting Clinician Unavailable Problems Condition Condition Condition Status Onset Resolution Last Treating Co mments Source Name Details Category Date Date Treatment Clinician Date Atrial Atrial Disease Active 2016-[address] [facility] [address] fibrillati fibrillati 2-12 Fun[facility] kes on on 00:00: Medical 00 Center Acute Acute Disease Active 2015-[address] [facility] ischemic ischemic 0-25 [facility] right MCA 00:00: [facility] stroke stroke 00 Center Closed Closed Problem Active Common displaced displaced Spir it fracture fracture - [facility] proximal proximal [facility] phalanx of phalanx of Me dical lesser toe lesser toe Ce nter of left of left foot, foot, initial initial encounter encounter Pain in Pain in Problem Active Common toe of toe of Spirit left foot left foot - [facility] Pain in Pain in Diagnosis Active Commo n joint of joint of Spirit left knee left knee - [facility] Left Left Diagnosis Active Common sciatic sciatic Spirit nerve pain nerve pain - [facility] Allergies, Adverse Reactions, Alerts Allergy Allergy Status Severity Reaction(s) Onset Inactive Treating Comm ents Source Name Type Date Date Clinician MORPHINE Adverse Active Info Not Commo n Reaction Available Spiri t - [facility] Social History Social Habit Start Date Stop Date Quantity Comments Source Alcohol intake 2017-02-18 2017-02-[address] [facility] [address] [facility] 00:00:00 00:00:00 non-drinker of Medical Ce nter alcohol (finding) Tobacco use and 2016-01-01 2016-01-01 Never used [facility] Funmilayo kes exposure 00:00:00 00:00:00 [facility] Sex Assigned At [birth year] [facility] jose 00:00:00 00:00:00 Medical Center Smoking Status Start Date Stop Date Source Never smoker [facility]ations Ordered Filled Start Stop Current Ordering Indication Dosage Frequency Signature Comments Components Source Medication Medication Date Date Medication? Clinician (SIG) Name Name Pradaxa Pradaxa 2017-03 Yes Sreekanth 1 capsule Common 0-10 Shukla Spirit 00:00: - [facility] 00 [facility] levothyroxi 2016-03 Yes 50ug Take [address] ne 2-13 mcg by [facility] (SYNTHROID, 13:19: mouth Medic al LEVOTHROID) 31 Every Center 50 MCG morning on tablet an empty stomach. dabigatran 2016-03 Yes Q.5D Take by [facility] (PRADAXA) 2-13 mouth 2 [facility] 150 mg Cap 13:19: (two) Medica l capsule 31 times Center daily. amiodarone 2016-03 Yes 200mg QD Take [address] (PACERONE) 2-13 mg by [facility] 200 MG 13:19: mouth Medical tablet 31 daily. [place] metoprolol 2016-03 Yes 50mg QD Take [address] (TOPROL-XL) 2-13 by mouth Luke s 100 MG 24 13:19: daily . Medic al hr tablet 31 Center pantoprazol 2016-03 Yes 40mg QD Take [address] e 2-13 tablet (40 [facility] (PROTONIX) 00:00: mg total) Me dical 40 MG 00 by mouth Center tablet daily. atorvastati 2015-03 Yes 80mg QD Take [address] n (LIPITOR) 0-28 tablets [facility] 10 MG 00:00: (80 mg Medical tablet 00 total) by Center mouth daily. irbesartan- 2015-03 Yes 1{tbl} QD Take [address] hydrochloro 0-17 tablet by Nya es thiazide 00:00: mouth Medical (AVALIDE) 00 daily. Center 300-12.5 mg per tablet Levothyroxi Levothyroxi Yes Sreekanth not Common ne Sodium ne Sodium Shukla defined Spirit [facility] Amlodipine Amlodipine Yes Sreekanth not C ommon Besylate Besylate Shukla defined Sp jo - [facility] Irbesartan- Irbesartan- Yes Sreekanth not Common Hydrochloro Hydrochloro Shukla defined Spirit thiazide thiazide [facility] Atorvastati Atorvastati Yes Sreekanth not Common n Calcium n Calcium Shukla defined [facility] Metoprolol Metoprolol Yes Sreekanth not C ommon Succinate Succinate Shukla defined Spirit ER ER - [facility] Procedures This patient has no known procedures. Encounters Start End Encounter Admission Attending Care Care Encounter Source Date/Time Date/Time Type Type Clinicians Facility Department ID 2018-10-06 2018-10-06 [facility] [id number] Common 11:00:00 11:00:00 [facility] 2017-12-16 2017-12-16 [facility] [id number] Common 08:30:00 08:30:00 t [facility] Sp[facility] t and Joint Joint - [facility] Results Test Description Test Time Test Comments [...] WBC 0-0 (BEAKER) (test code = 413) [id number] 07:13:00 Test Item Value Reference Range Interpretation Comments BLOOD UREA NITROGEN (BEAKER) (test 15 mg/dL 7-21 code = 354) [id number] 07:13:00 Test Item Value Reference Range Interpretation Comments SODIUM (BEAKER) (test code = 381) 138 meq/L 136-145 POTASSIUM (BEAKER) (test code = 4.0 meq/L 3.5-5.1 379) CHLORIDE (BEAKER) (test code = 382) 108 meq/L 98-107 H CO2 (BEAKER) (test code = 355) 23 meq/L 22-29 [id number] 07:13:00 Test Item Value Reference Range Interpretation Comments CREATININE (BEAKER) 0.95 mg/dL 0.57-1.25 (test code = 358) EGFR (BEAKER) (test 57 mL/min/1.73 ESTIMA FARIHA GFR IS code = 1092) sq m NOT ACCURATE CREATININE CLEARANCE IN PREDICTING GLOMERULAR FILTRATION RATE . ESTIMATED GFR I S NOT APPLICABLE FOR DIALYSIS PATIEN TS. [id number] 07:07:00 Test Item Value Reference Range Interpretation Comments PARTIAL THROMBOPLASTIN TIME 64.7 seconds 22.5-36.0 H (BEAKER) (test code = 760) [id number] 02:43:00 Test Item Value Reference Range Interpretation Comments PARTIAL THROMBOPLASTIN TIME 38.0 seconds 22.5-36.0 H (BEAKER) (test code = 760) Prior to initiating [id number] 17:59:00 Test Item Value Reference Range Interpretation Comments ACTIVATED CLOTTING TIME 131 sec TEST ED AT [facility] [address] ([facility]) (test code = [place] [address]) [id number] 17:14:00 Test Item Value Reference Range Interpretation Comments ACTIVATED CLOTTING TIME 329 sec TEST ED AT [place] [address] (BEAKER) (test code = [place] [address]) [id number] 17:14:00 Test Item Value Reference Range Interpretation Comments ACTIVATED CLOTTING TIME 334 sec TEST ED [facility] [place] [address] [facility] (test code = J[place] [address]) [id number] 17:14:00 Test Item Value Reference Range Interpretation Comments ACTIVATED CLOTTING TIME 345 sec TEST ED AT [place] [address] ([facility]) (test code = [place] [address]) [id number] 17:14:00 Test Item Value Reference Range Interpretation Comments ACTIVATED CLOTTING TIME 274 sec TEST ED AT [place] [address] ([facility]) (test code = JUAN [place] [address]) [id number] BASIC METABOLIC [id number] 07:16:00 Test Item Value Reference Range Interpretation [...] NOT APPLICABLE FOR DIALYSIS PATIEN TS. PROTHROMBIN [id number] 07:07:00 Test Item Value Reference Range Interpretation Comments PROTIME (BEAKER) (test code = 14.8 seconds 11.7-14.7 H 759) INR (BEAKER) (test code = 370) 1.2 <=5.9 RECOMMENDED COUMADIN/WARFARIN INR THERAPY RANGESSTANDARD DOSE: 2.0 - 3.0 Includes: PROPHYLAXIS for venous thrombosis, systemic embolization; TREATMENT for venous thrombosis and/or pulmonary embolus.HIGH RISK: Target INR is 2.5-3.5 for patients with mechanical heart valves.Within 24 hours, if on CoumadinCBC W/PLT COUNT & AUTO [id number] 07:00:00 Test Item Value Reference Range Interpretation [...] % 0-1 PERCENT (BEAKER) (test code = 2363)
[2022-01-10 10:35] LABS: Absolute Lymphocytes (CBC) 1.5 K/uL (0.7-4.9); Hematocrit 33.5 % (36.0-45.0); Lymphocytes % 23.3 % (15.3-44.8); MCV 88.8 fL (80-100); MPV 7.3 fL (7.6-11.3); RBC Red Blood Cell Count 3.77 M/uL (3.86-4.86)
[2022-01-10 10:38] LABS: SARS-CoV-2 Antigen Rapid Res Negative (Negative)
[2022-01-10 10:40] LABS: Protime INR 1.37
[2022-01-10 10:54] LABS: ALT/SGPT 18 U/L (12-78); AST/SGOT 14 U/L (15-37); Albumin 3.6 g/dL (3.4-5.0); Alkaline Phosphatase 73 U/L (45-117); BUN Blood Urea Nitrogen 23 mg/dL (7-18); Bicarbonate 25 mmol/L (21-32); Bilirubin Total 0.3 mg/dL (0.2-1.0); Glomerular Filtration Rate 47 ml/min (=/>90); Glucose Level 111 mg/dL (74-106); Magnesium 2.1 mg/dL (1.8-2.4); Potassium 4.3 mmol/L (3.5-5.1); Protein, Total 7.2 g/dL (6.4-8.2); Sodium Level 128 mmol/L (136-145); Troponin High Sensitivity 6.6 pg/mL (<58.9)
[2022-01-10 10:55] LABS: Bilirubin Direct < 0.1 mg/dL (0-0.2)
--- NOTE | 2022-01-10 11:25 | RAD REPORT ---
EXAM DESCRIPTION: CT - Head Brain Wo Cont - 01/10/2022 11:12 am CLINICAL HISTORY: dizzy COMPARISON: Ct Stroke Brain Wo Cont dated 02/09/2020; Ct Stroke Brain Wo Cont dated 01/01/2016Ct Stro ke Brain Wo Cont dated 02/09/2020; Ct Stroke Brain Wo Cont dated 01/01/2016; Neck Angio dated 2 TECHNIQUE: All CT scans are performed using dose optimization technique as appropriate and may inclu de automated exposure control or mA/KV adjustment according to patient size. FINDINGS: No intracranial hemorrhage, hydrocephalus or extra-axial fluid collection.No areas of brai n edema or evidence of midline shift. Cerebral atrophy. The paranasal sinuses and mastoids are clear. The calvarium is intact. IMPRESSION: No acute intracranial abnormality.
--- NOTE | 2022-01-10 11:29 | RAD REPORT ---
EXAM DESCRIPTION: CT - Neck Angio - 01/10/2022 11:12 am CLINICAL HISTORY: dizzy COMPARISON: Head C Spine Mpr Wo Con dated 11/05/2016 TECHNIQUE: CT angiography of the neck vessels was performed with MIPs. All CT scans are performed using dose optimization technique as appropriate and may include automated exposure control or mA/KV adjustment according to patient size. FINDINGS: A left aortic arch is identified with normal three vessel configuration of the great vesse ls. No significant flow abnormality is seen of the common carotid bilaterally. No significant stenosis is identified involving the cervical segments of both internal carotid arteri es. Normal flow is seen within both vertebral arteries. Right dominant vertebral artery. Scattered calcified atherosclerotic plaque present at the carotid bifurcations and at the visualized portion of the intracranial ICAs. IMPRESSION: No significant flow abnormality of the neck vessels is identified.
--- NOTE | 2022-01-10 12:13 | EDPHYS ---
Physician Documentation [facility] Name: Cierra Flores Age: 81 yrs Sex: Female : 1940 Arrival Date: 01/10/2022 Time: 09:13 Bed 16 Private MD: Javid Jamil C ED Physician Que Celaya HPI: 01/10 09:50 This 81 yrs old Female presents to ER via Ambulatory with complaints of Dizziness, snw Weakness, Headache. 09:50 The patient presents with feeling faint, feeling off balance. Onset: The snw symptoms/episode began/occurred suddenly, this morning. Context: occurred at home, occurred while the patient was walking. Associated signs and symptoms: Pertinent positives: headache, near-syncope, vomiting. Severity of symptoms: At their worst the symptoms were moderate severe in the emergency department the symptoms have resolved have improved. Patient's baseline: Neuro: alert and fully oriented, Motor: left-sided weakness, Ambulation: walks without assistance, Speech: normal, The patient has a previous history of CVA. The patient has experienced a previous episode. sees Dr. Jamil. No new medications or changes. Historical: - Allergies: 09:27 Morphine; vg1 - Home Meds: 11:30 levothyroxine 50 mcg tab 1 tab once daily [Active]; Pradaxa 150 mg Oral cap 1 cap 2 bp times per day [Active]; metoprolol succinate 100 mg Oral Tb24 1 tab once daily [Active]; olmesartan-hydrochlorothiazide 40-12.5 mg oral tab 1 tab once daily [Active]; - PMHx: 09:27 Atrial Fib; CVA; Heart Monitor; High Cholesterol; Hypertension; Hypothyroidism; vg1 - PSHx: 09:27 Hysterectomy; Cholecystectomy; vg1 - Immunization history:: Client reports receiving the 2nd dose of the Covid vaccine. - Social history:: Smoking status: Patient denies any tobacco usage or history of. ROS: 09:49 Eyes: Negative for injury, pain, redness, and discharge, ENT: Negative for injury, snw pain, and discharge, Neck: Negative for injury, pain, and swelling, Cardiovascular: Negative for chest pain, palpitations, and edema, Respiratory: Negative for shortness of breath, cough, wheezing, and pleuritic chest pain. 09:49 Back: Negative for injury and pain, : Negative for injury, bleeding, discharge, and swelling, MS/Extremity: Negative for injury and deformity, Skin: Negative for injury, rash, and discoloration. 09:49 Constitutional: Positive for fatigue, malaise. 09:49 Abdomen/GI: Positive for vomiting. 09:49 Neuro: Positive for dizziness, headache, weakness, acute onset this am. Resolved. Exam: 09:48 Constitutional: This is a well developed, well nourished patient who is awake, alert, snw and in no acute distress. Head/Face: Normocephalic, atraumatic. Eyes: Pupils equal round and reactive to light, extra-ocular motions intact. Lids and lashes normal. Conjunctiva and sclera are non-icteric and not injected. Cornea within normal limits. Periorbital areas with no swelling, redness, or edema. ENT: Nares patent. No nasal discharge, no septal abnormalities noted. Tympanic membranes are normal and external auditory canals are clear. Oropharynx with no redness, swelling, or masses, exudates, or evidence of obstruction, uvula midline. Mucous membranes moist. Neck: Trachea midline, no thyromegaly or masses palpated, and no cervical lymphadenopathy. Supple, full range of motion without nuchal rigidity, or vertebral point tenderness. No Meningismus. Chest/axilla: Normal chest wall appearance and motion. Nontender with no deformity. No lesions are appreciated. Cardiovascular: Regular rate and rhythm with a normal S1 and S2. No gallops, murmurs, or rubs. Normal PMI, no JVD. No pulse deficits. Respiratory: Lungs have equal breath sounds bilaterally, clear to auscultation and percussion. No rales, rhonchi or wheezes noted. No increased work of breathing, no retractions or nasal flaring. Abdomen/GI: Soft, non-tender, with normal bowel sounds. No distension or tympany. No guarding or rebound. No evidence of tenderness throughout. Back: No spinal tenderness. No costovertebral tenderness. Full range of motion. Skin: Warm, dry with normal turgor. Normal color with no rashes, no lesions, and no evidence of cellulitis. MS/ Extremity: Pulses equal, no cyanosis. Neurovascular intact. Full, normal range of motion. Neuro: Awake and alert, GCS 15, oriented to person, place, time, and situation. Cranial nerves II-XII grossly intact. Motor strength 5/5 in all extremities. Sensory grossly intact. Cerebellar exam normal. Normal gait. Psych: Awake, alert, with orientation to person, place and time. Behavior, mood, and affect are within normal limits. 09:48 Special observations: left lower ext with mild weakness in comparison to right from previous CVA. Vital Signs: 09:25 BP 190 / 78; Pulse 70; Resp 15; Temp 97.9; Pulse Ox 100% ; Weight 61.23 kg; Height 5 vg1 ft. 2 in. (157.48 cm); Pain 10/10; 09:34 BP 178 / 68; Pulse 69; Resp 18; Pulse Ox 98% ; bp 11:31 BP 146 / 57; Pulse 64; Resp 16; Pulse Ox 97% ; bp 12:30 BP 137 / 54; Pulse 63; Resp 16; Pulse Ox 97% ; bp 13:30 BP 146 / 54; Pulse 59; Resp 16; Pulse Ox 98% ; bp 14:30 BP 124 / 64; Pulse 59; Resp 17; Pulse Ox 98% ; bp 16:00 BP 157 / 72; Pulse 57; Resp 16; Pulse Ox 96% ; bp 17:06 BP 137 / 67; Pulse 62; Resp 16; Pulse Ox 97% ; bp 09:25 Body Mass Index 24.69 (61.23 kg, 157.48 cm) vg1 NIH Stroke Scale Scores: 09:30 NIHSS Score: 0 bp 09:48 NIHSS Score: 0 snw MDM: 09:54 Patient medically screened. snw 12:12 Data reviewed: vital signs, nurses notes, lab test result(s), EKG, radiologic studies, snw CT scan. Data interpreted: Pulse oximetry: on room air is 97 %. Interpretation: normal. Counseling: I had a detailed discussion with the patient and/or guardian regarding: the historical points, exam findings, and any diagnostic results supporting the discharge/admit diagnosis, lab results, radiology results, the need for further work-up and treatment in the hospital. Physician consultation: A Loulou JONES was called at 12:16, was contacted at 12:16, regarding admission, to the telemetry unit. would like further tests performed, MRI stroke protocol. 01/10 09:48 Order name: Basic Metabolic Panel; Complete Time: 10:58 snw 01/10 09:48 Order name: CBC with Diff; Complete Time: 10:40 snw 01/10 09:48 Order name: Hepatic Function; Complete Time: 10:58 snw 01/10 09:48 Order name: High Sensitivity Troponin; Complete Time: 10:58 snw 01/10 09:48 Order name: Magnesium; Complete Time: 10:58 snw 01/10 09:48 Order name: Protime (+inr); Complete Time: 10:41 snw 01/10 09:48 Order name: Ptt, Activated; Complete Time: 10:41 snw 01/10 09:48 Order name: Urine Culture snw 01/10 09:48 Order name: Urine Microscopic Only; Complete Time: 12:45 snw 01/10 09:48 Order name: CT Head Brain wo Cont; Complete Time: 11:27 snw 01/10 09:48 Order name: CT Neck Angio; Complete Time: 11:31 snw 01/10 09:55 Order name: SARS RAPID; Complete Time: 10:40 snw 01/10 12:16 Order name: Urine Dipstick-Ancillary; Complete Time: 12:17 EDMS 01/10 12:18 Order name: MRI Stroke Protocol [facility] 01/10 09:48 Order name: Call for Old EKG; Complete Time: 09:52 snw 01/10 09:48 Order name: EKG; Complete Time: 09:49 snw 01/10 09:48 Order name: Accucheck; Complete Time: 10:25 snw 01/10 09:48 Order name: Cardiac monitoring; Complete Time: 10:25 snw 01/10 09:48 Order name: EKG - Nurse/Tech; Complete Time: 10:25 snw 01/10 09:48 Order name: IV Saline Lock; Complete Time: 10:25 snw 01/10 09:48 Order name: Labs collected and sent; Complete Time: 10:25 snw 01/10 09:48 Order name: NPO; Complete Time: 10:25 snw 01/10 09:48 Order name: O2 Per Protocol; Complete Time: 10:25 snw 01/10 09:48 Order name: O2 Sat Monitoring; Complete Time: 10:25 snw 01/10 09:48 Order name: Stroke Swallow Screen; Complete Time: 10:25 snw 01/10 09:48 Order name: Urine Dipstick-Ancillary (obtain specimen); Complete Time: 12:22 snw 01/10 16:17 Order name: MRI; Complete Time: 16:17 EDMS 01/10 16:20 Order name: MRI; Complete Time: 16:21 EDMS 01/10 16:21 Order name: MRI; Complete Time: 16:21 EDMS EC:15 Rate is 60 beats/min. Rhythm is regular. QRS [place] is Normal. No ST changes noted. snw Clinical impression: NSR w/ Non-specific ST/T Changes. Administered Medications: 12:00 Drug: NS 0.9% 1000 ml Route: IV; Rate: 80 ml/hr; Site: left forearm; bp 17:08 Follow up: IV Status: Infusion continued upon admission bp Disposition: 17:36 Co-signature as Attending Physician, Que Celaya MD. rn Disposition Summary: 01/10/22 12:12 Hospitalization Ordered Provider: Javid Jamilw Condition: Stable snw Problem: new snw Symptoms: are unchanged snw Bed/Room Type: Standard snw Hospitalization Status: Observation(01/10/22 12:17) snw Location: Telemetry/MedSurg (observation)(01/10/22 12:18) snw Room Assignment: 406(01/10/22 14:34) dw Diagnosis - Hypo-osmolality and hyponatremia snw Forms: - Medication Reconciliation Form snw - SBAR form snw NIH Stroke Scale - NIH Stroke Score Date: 01/10/2022 Time: 09:30 Total Score = 0 1a. Level of Consciousness (LOC) - 0(Alert) 1b. Level of Consciousness (LOC) (Month \T\ Age) - 0(Both) 1c. LOC Commands (Open \T\ Closes Eyes/Amphibian Crewmember) - 0(Both) 2. Best Gaze (Lateral Gaze Paresis) - 0(Normal) 3. Visual Field Loss - 0(No visual loss) 4. Facial Palsy - 0(Normal) 5a. Left Arm: Motor (10-second hold) - 0(No drift) 5b. Right Arm: Motor (10-second hold) - 0(No drift) 6a. Left Leg: Motor (5-second hold - always test supine) - 0(No drift) 6b. Right Leg: Motor (5-second hold - always test supine) - 0(No drift) 7. Limb Ataxia (finger/nose \T\ heel/fam - test with eyes open) - 0(Absent) 8. Sensory Loss (pinprick arms/legs/face) - 0(Normal) 9. Best Language: Aphasia (description/naming/reading) - 0(No aphasia) 10. Dysarthria (speech clarity - read or repeat words) - 0(Normal) 11. Extinction and Inattention (visual/tactile/auditory/spatial/personal) - 0(No abnormality) Initials: bp NIH Stroke Scale - NIH Stroke Score Date: 01/10/2022 Time: 09:48 Total Score = 0 1a. Level of Consciousness (LOC) - 0(Alert) 1b. Level of Consciousness (LOC) (Month \T\ Age) - 0(Both) 1c. LOC Commands (Open \T\ Closes Eyes/Amphibian Crewmember) - 0(Both) 2. Best Gaze (Lateral Gaze Paresis) - 0(Normal) 3. Visual Field Loss - 0(No visual loss) 4. Facial Palsy - 0(Normal) 5a. Left Arm: Motor (10-second hold) - 0(No drift) 5b. Right Arm: Motor (10-second hold) - 0(No drift) 6a. Left Leg: Motor (5-second hold - always test supine) - 0(No drift) 6b. Right Leg: Motor (5-second hold - always test supine) - 0(No drift) 7. Limb Ataxia (finger/nose \T\ heel/fam - test with eyes open) - 0(Absent) 8. Sensory Loss (pinprick arms/legs/face) - 0(Normal) 9. Best Language: Aphasia (description/naming/reading) - 0(No aphasia) 10. Dysarthria (speech clarity - read or repeat words) - 0(Normal) 11. Extinction and Inattention (visual/tactile/auditory/spatial/personal) - 0(No abnormality) Initials: snw Signatures: Dispatcher [employer] Mamie Gr RN RN Bronwyn White, PHOTOVOLTAIC POWER SYSTEMS ENGINEER-C PHOTOVOLTAIC POWER SYSTEMS ENGINEER-Csnw Que Celaya MD MD rn Peltier, Brian, RN RN Elinor Sauceda Victoria RN RN vg1 Corrections: (The following items were deleted from the chart) 12:17 12:12 Inpatient Admission snw snw 12:18 12:12 Telemetry/MedSurg (Inpatient) snw snw 12:18 12:12 snw snw 14:34 12:18 snw dw
--- NOTE | 2022-01-10 12:13 | ER ---
Nurse's Notes [facility] Name: Cierra Flores Age: 81 yrs Sex: Female : 1940 Arrival Date: 01/10/2022 Time: 09:13 Bed 16 Private MD: Javid Jamil C Diagnosis: Hypo-osmolality and hyponatremia Presentation: 01/10 09:25 Chief complaint: Patient states: "I woke up at 0400 this morning and put some laundry vg1 in and all off a sudden became dizzy, headache, and N/V, just a weird feeling" Rates h/a 12/16. Coronavirus screen: Vaccine status: Patient reports receiving the 2nd dose of the covid vaccine. Client denies travel out of the [place] in the last 14 days. Ebola Screen: Patient negative for fever greater than or equal to 101.5 degrees Fahrenheit, and additional compatible Ebola Virus Disease symptoms Patient denies exposure to infectious person. Risk Assessment: Do you want to hurt yourself or someone else? Patient reports no desire to harm self or others. Onset of symptoms was January 10, 2022 at 04:00. 09:25 Method Of Arrival: Ambulatory vg1 09:25 Acuity: ELIO 2 vg1 09:30 No acute neurological deficit is noted. Pre-hospital glucose is not applicable to this bp patient. 09:30 Initial Sepsis Screen: Does the patient meet any 2 criteria? No. Patient's initial bp sepsis screen is negative. Does the patient have a suspected source of infection? No. Patient's initial sepsis screen is negative. Triage Assessment: 09:27 The onset of the patients symptoms was January 10, 2022 at 04:00. General: Appears in vg1 no apparent distress. uncomfortable, Behavior is calm, cooperative. Pain: Complains of pain in head Pain currently is 10 out of 10 on a pain scale. Neuro: Level of Consciousness is awake, alert, obeys commands, Oriented to person, place, time, situation, Director [employer] are equal bilaterally Moves all extremities. Gait is steady, Speech is normal, Facial symmetry appears normal, Reports dizziness, headache Denies blurred vision. Stroke Activation: Physician: Stroke Attending; Name: ; Notified At: ; Arrived At: Physician: Chief Stroke Resident; Name: ; Notified At: ; Arrived At: Physician: Stroke Resident; Name: ; Notified At: ; Arrived At: Physician: ED Attending; Name: ; Notified At: ; Arrived At: Physician: ED Resident; Name: ; Notified At: ; Arrived At: 09:30 NA bp Historical: - Allergies: Morphine; vg1 - Home Meds: levothyroxine 50 mcg tab 1 tab once daily [Active]; Pradaxa 150 mg Oral cap 1 cap 2 bp times per day [Active]; metoprolol succinate 100 mg Oral Tb24 1 tab once daily [Active]; olmesartan-hydrochlorothiazide 40-12.5 mg oral tab 1 tab once daily [Active]; - PMHx: Atrial Fib; CVA; Heart Monitor; High Cholesterol; Hypertension; Hypothyroidism; vg1 - PSHx: Hysterectomy; Cholecystectomy; vg1 - Immunization history:: Client reports receiving the 2nd dose of the Covid vaccine. - Social history:: Smoking status: Patient denies any tobacco usage or history of. Screenin: Abuse screen: Denies threats or abuse. Denies injuries from another. Nutritional bp screening: No deficits noted. Tuberculosis screening: No symptoms or risk factors identified. Fall Risk Fall in past 12 months (25 points). Sepsis Screening:. Assessment: : VAN Scoring: Arm Drift: Patients demonstrates NO arm weakness. Patient is VAN Negative. bp The patient has not been NPO before screening. The patient is alert, and able to follow commands. The patient does not exhibit slurred or garbled speech. The patient is not exhibiting difficulty speaking. The patient does not exhibit difficulty understanding words. The patient is able to swallow own secretions with no drooling or need for suction. Patient tolerated one teaspoon of water. No drooling, immediate coughing, gurgling, or clearing of the throat was noted. The patient tolerated 90mL of water. No drooling, immediate coughing, gurgling, or clearing of the throat was noted. The patient passed the bedside swallow screening. Oral medications may be given as ordered. Contact Physician for further diet orders. Provider notified of bedside swallow screening results: Bronwyn HUERTAS. TNKase (Tenecteplase) Screening: Contraindications: Rapidly improving condition or minor deficit: Yes. General: SEE TRIAGE NOTE. 11:30 Reassessment: PT RETURNED FROM CT. bp 13:00 Reassessment: ADMIT INITIATED. bp 14:45 Reassessment: PT TO MRI. bp 16:00 Reassessment: PT RETURNED FROM MRI, ADMIT COMPLETE. bp 17:06 Reassessment: PT MARY. bp Vital Signs: 09:25 BP 190 / 78; Pulse 70; Resp 15; Temp 97.9; Pulse Ox 100% ; Weight 61.23 kg; Height 5 vg1 ft. 2 in. (157.48 cm); Pain 10/10; 09:34 BP 178 / 68; Pulse 69; Resp 18; Pulse Ox 98% ; bp 11:31 BP 146 / 57; Pulse 64; Resp 16; Pulse Ox 97% ; bp 12:30 BP 137 / 54; Pulse 63; Resp 16; Pulse Ox 97% ; bp 13:30 BP 146 / 54; Pulse 59; Resp 16; Pulse Ox 98% ; bp 14:30 BP 124 / 64; Pulse 59; Resp 17; Pulse Ox 98% ; bp 16:00 BP 157 / 72; Pulse 57; Resp 16; Pulse Ox 96% ; bp 17:06 BP 137 / 67; Pulse 62; Resp 16; Pulse Ox 97% ; bp 09:25 Body Mass Index 24.69 (61.23 kg, 157.48 cm) vg1 NIH Stroke Scale Scores: 09:30 NIHSS Score: 0 bp 09:48 NIHSS Score: 0 snw ED Course: 09:13 Patient arrived in ED. rg4 09:14 Javid Jamil MD is Private Physician. rg4 09:15 Bronwyn Loaiza FNP-C is [facility]. snw 09:15 Que Celaya MD is Attending Physician. snw 09:27 Triage completed. vg1 09:27 Arm band placed on. vg1 09:34 Raudel Calvo, TISHA is Primary Nurse. bp 10:25 Inserted saline lock: 20 gauge in left forearm, using aseptic technique. Blood bp collected. 11:14 CT Head Brain wo Cont In Process Unspecified. EDMS 11:14 CT Neck Angio In Process Unspecified. EDMS 11:33 Patient has correct armband on for positive identification. Bed in low position. Call bp light in reach. Side rails up X2. 12:12 Javid Jamil MD is Hospitalizing Provider. snw 15:01 No provider procedures requiring assistance completed. Patient admitted, IV remains in bp place. Administered Medications: 12:00 Drug: NS 0.9% 1000 ml Route: IV; Rate: 80 ml/hr; Site: left forearm; bp 17:08 Follow up: IV Status: Infusion continued upon admission bp Medication: 09:30 VIS not applicable for this client. bp Outcome: 12:12 Decision to Hospitalize by Provider. snw 17:07 Admitted to Med/surg accompanied by tech, via wheelchair, room 406, Report called to bp JULIO GILES 17:07 Condition: stable bp 17:07 Instructed on the need for admit. 17:08 Patient left the ED. bp NIH Stroke Scale - NIH Stroke Score Date: 01/10/2022 Time: 09:30 Total Score = 0 1a. Level of Consciousness (LOC) - 0(Alert) 1b. Level of Consciousness (LOC) (Month \\T\\ Age) - 0(Both) 1c. LOC Commands (Open \\T\\ Closes Eyes/International Trade Teacher) - 0(Both) 2. Best Gaze (Lateral Gaze Paresis) - 0(Normal) 3. Visual Field Loss - 0(No visual loss) 4. Facial Palsy - 0(Normal) 5a. Left Arm: Motor (10-second hold) - 0(No drift) 5b. Right Arm: Motor (10-second hold) - 0(No drift) 6a. Left Leg: Motor (5-second hold - always test supine) - 0(No drift) 6b. Right Leg: Motor (5-second hold - always test supine) - 0(No drift) 7. Limb Ataxia (finger/nose \\T\\ heel/fam - test with eyes open) - 0(Absent) 8. Sensory Loss (pinprick arms/legs/face) - 0(Normal) 9. Best Language: Aphasia (description/naming/reading) - 0(No aphasia) 10. Dysarthria (speech clarity - read or repeat words) - 0(Normal) 11. Extinction and Inattention (visual/tactile/auditory/spatial/personal) - 0(No abnormality) Initials: bp NIH Stroke Scale - NIH Stroke Score Date: 01/10/2022 Time: 09:48 Total Score = 0 1a. Level of Consciousness (LOC) - 0(Alert) 1b. Level of Consciousness (LOC) (Month \\T\\ Age) - 0(Both) 1c. LOC Commands (Open \\T\\ Closes Eyes/International Trade Teacher) - 0(Both) 2. Best Gaze (Lateral Gaze Paresis) - 0(Normal) 3. Visual Field Loss - 0(No visual loss) 4. Facial Palsy - 0(Normal) 5a. Left Arm: Motor (10-second hold) - 0(No drift) 5b. Right Arm: Motor (10-second hold) - 0(No drift) 6a. Left Leg: Motor (5-second hold - always test supine) - 0(No drift) 6b. Right Leg: Motor (5-second hold - always test supine) - 0(No drift) 7. Limb Ataxia (finger/nose \\T\\ heel/fam - test with eyes open) - 0(Absent) 8. Sensory Loss (pinprick arms/legs/face) - 0(Normal) 9. Best Language: Aphasia (description/naming/reading) - 0(No aphasia) 10. Dysarthria (speech clarity - read or repeat words) - 0(Normal) 11. Extinction and Inattention (visual/tactile/auditory/spatial/personal) - 0(No abnormality) Initials: snw Signatures: Dispatcher [employer] EDMS Bronwyn Loaiza, MANAGER REPORT-C MANAGER REPORT-Csnw Gwendolyn Veronica rg4 Raudel Calvo, RN RN bp Nathalie Veronica RN RN vg1
[2022-01-10 12:16] LABS: Urine Blood Negative (Negative); Urine Glucose Negative (Negative); Urine Protein Negative (Negative); Urine Specific Gravity <=1.005 (1.005-1.030)
[2022-01-10] MEDS ORDERED: NA CHLORIDE 0.9% 1,000 ML ONE (12:17)
[2022-01-10 12:43] LABS: Urine Mucus Slight /HPF (None Seen); Urine RBC <5 /HPF (None Seen)
[2022-01-10] MEDS ORDERED: NA CHLORIDE 0.9% 1,000 ML IV SCH (15:00)
--- NOTE | 2022-01-10 16:16 | RAD REPORT ---
EXAM DESCRIPTION: MRI - Brain W/Wo Cont - 01/10/2022 3:49 pm CLINICAL HISTORY: Dizziness/prior CVA COMPARISON: head CT January 10, 2022 TECHNIQUE: Axial, sagittal, and coronal magnetic images of the brain were obtained. 14 cc MultiHance administered intravenously FINDINGS: No significant abnormal signal within the brain. The ventricles are normal in caliber. Diffusion-weighted/ ADC mapping sequences do not demonstrate evidence of an acute infarction. No abnormal enhancement within the brain is seen. An extra-axial fluid collection is not noted. Fluid within the sinuses/mastoids is not seen. Minimal sinusitis IMPRESSION: No acute intracranial abnormality displayed
--- NOTE | 2022-01-10 16:19 | RAD REPORT ---
EXAM DESCRIPTION: MRI - MRA Neck W/Wo Cont - 01/10/2022 3:49 pm CLINICAL HISTORY: Dizziness/prior CVA COMPARISON: None. TECHNIQUE: Magnetic resonance angiogram of the neck was performed. 14 cc MultiHance was administered intravenously. 3D MIPS reconstruction performed FINDINGS: Mild plaque within the common carotid, internal carotid external carotid arteries bilatera lly. Mild narrowing of distal left vertebral artery is unchanged from 2017. 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 Vertebral arteries appear unremarkable. No dissection/significant stenosis seen IMPRESSION: Mild plaque within the carotid arteries NASCET criteria used. Mild 0-49% stenosis Moderate 50-69% stenosis Severe 70-99% stenosis
--- NOTE | 2022-01-10 16:20 | RAD REPORT ---
EXAM DESCRIPTION: MRI - MRA Head Wo Cont - 01/10/2022 3:49 pm CLINICAL HISTORY: Dizziness/prior CVA COMPARISON: 2016 TECHNIQUE: Magnetic resonance angiogram was performed. 3D MIPS reconstruction performed FINDINGS: The anterior cerebral, middle cerebral, right posterior cerebral, distal internal carotid and basilar arteries do not demonstrate a significant stenosis. Mild narrowing left posterior cerebral artery unchanged. An aneurysm is not displayed. IMPRESSION: No acute abnormality is seen
[2022-01-10 17:47] VITALS: O2SAT 97
[2022-01-10] MEDS ORDERED: VALSARTAN 160 MG TAB PO ONE (18:00)
[2022-01-10 18:07] VITALS: BMI 24.7
[2022-01-10] MEDS ORDERED: ATORVASTATIN 40 MG TAB PO SCH (21:00)
[2022-01-10] MEDS: DABIGATRAN 150 MG CAP PO SCH (22:41)
[2022-01-11] MEDS ORDERED: METOPROLOL XL 100 MG TAB PO SCH ×2 (06:00→09:00)
[2022-01-11] MEDS ORDERED: LEVOTHYROXINE SOD 0.05 MG TABLET PO SCH (06:30)
[2022-01-11 06:48] LABS: Albumin 3.3 g/dL (3.4-5.0); Bilirubin Total 0.4 mg/dL (0.2-1.0); Magnesium 1.9 mg/dL (1.8-2.4); Phosphorus 3.2 mg/dL (2.5-4.9); Potassium 4.5 mmol/L (3.5-5.1); Protein, Total 6.8 g/dL (6.4-8.2); Thyroid Stimulating Hormone 0.528 uIU/mL (0.360-3.740)
[2022-01-11 08:33] VITALS: BP 144/53; TEMP 96.7
[2022-01-11] MEDS: DABIGATRAN 150 MG CAP PO SCH (08:58)
[2022-01-11] MEDS ORDERED: VALSARTAN 160 MG TAB PO SCH (09:00)
[2022-01-11] MEDS ORDERED: INFLUENZA VACCINE (for 6+ mo) 0.5 ML DOSE IMVAC ONE (10:00)
[2022-01-11] MEDS ORDERED: PNEUMOCOCCAL VACCINE 0.5 ML IMVAC ONE (10:00)
--- NOTE | 2022-01-11 12:37 | EKG ---
Test Date: 2022-01-10 Test Time: 10:10:54 Dining Room Manager: BP MEASUREMENT RESULTS: Intervals: Rate: 60 WA: 146 QRSD: 78 QT: 420 QTc: 420 [place]: P: 53 WA: 146 QRS: 28 T: 44 INTERPRETIVE STATEMENTS: Normal sinus rhythm Nonspecific ST abnormality Abnormal ECG Compared to ECG 02/09/2020 13:46:35 ST (T wave) deviation now present Atrial fibrillation no longer present Electronically Signed On 01-11-22 12:35:57 CDT by Jamie Matos
--- NOTE | 2022-01-13 08:36 | SS ---
Date of Discharge: 01/11/2022 Chief Complaint: Headache, dizziness, nausea, vomiting. History Of Present Illness: This is an 81-year-old very pleasant female patient, who was doing fine when she woke up yesterday morning and as she was making her bed, all of a sudden she felt dizzy and describes as if she felt numb all over, felt hot and fell over in the bed and had 1 episode of nausea , vomiting at that time. After that, she had headache pretty much all day. Subsequently, she came i [facility] emergency room. After she was evaluated, she was admitted to the hospital. She had a history of stroke, so she was concerned about it and all the workup that we have done so far has not shown any signs of stroke. Her serum sodium level was low at 128 and she was started on IV fluid normal saline and this morning when I saw her she was feeling much better. Denies any headache, nausea, vomiting. No dizziness. Allergies: TO MORPHINE CAUSING SYNCOPE. Medications: Atorvastatin 40 mg daily at bedtime, Pradaxa 150 mg 2 times a day, hydralazine 25 mg 2 times a day, olmesartan/HCTZ 40/12.5 one tablet daily, levothyroxine 50 mcg daily, metoprolol succina te 100 mg daily. 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 GI: As mentioned above. Constitutional: As mentioned above. All other systems reviewed and negative. Past Medical History: Significant for stroke in 2016 and she recovered completely from it, hypothyro idism, chronic atrial fibrillation which was diagnosed in 2016 when she had stroke, hypertension, and hyperlipidemia. Past Surgical History: Cataract surgery, ablation done for atrial fibrillation in 2016, hernia repai r, cholecystectomy, appendectomy, hysterectomy with bladder suspension. Family History: Father had cerebral aneurysm. Mother had heart disease, hypertension, and stroke. Brother had UT. Sister had lung cancer, heart disease, and hypertension. Social History: Negative for smoking, alcohol use. Physical Examination: Vital Signs: Temperature 97.4, pulse 71, respiratory rate 19, blood pressure 140/69, oxygen saturati on 97%. Height 5 feet 2 inches, weight 135 pounds. General: Awake, alert, oriented, not in distress. HEENT: Head atraumatic, normocephalic. Conjunctivae nonerythematous. Sclerae white. Mouth, no thr ush or edema noted. Ears/Nose, no mass, lesion, discharge noted. Neck: Supple. No JVD, lymph nodes, bruit, thyromegaly noted. Lungs: Bilateral good equal air entry. Clear to auscultation. No rhonchi. No rales. Heart: Normal heart sounds, no murmur or gallop. Abdomen: Soft, bowel sounds normal. No guarding, rigidity, tenderness, mass, hepatosplenomegaly, dis tention, or bruit noted. Extremities: No leg edema. No calf tenderness. Skin: No rash, ulcer, cellulitis. Lymphatics: No lymph node enlargement in neck, supraclavicular, infraclavicular region. Neuro: No focal neurological deficit. Chest: Unremarkable. External Genitalia: Deferred. Rectal: Deferred. Laboratory Data: White count 6.5, hemoglobin 11.3, platelets 371. Sodium 128, potassium 4.3, chlori de 98, bicarb 25, BUN 23, creatinine 1.17, glucose 111. Liver function tests unremarkable. Troponin 6.6. This morning; sodium 133, potassium 4.5, chloride 102, bicarb 26, BUN 16, creatinine 0.98, glu cose 101. Liver function tests unremarkable. TSH 0.528. Total cholesterol 159, triglyceride 122, L DL 99, HDL 36. Hospital Course: After the patient was evaluated in the ER, she was admitted to the hospital. Her C AT scan of the head was negative for any acute changes. MRI of the brain per stroke protocol was als o negative for any stroke. MRA of brain and CT angiogram of neck were unremarkable for any acute saman nges, no evidence of any hemodynamically significant stenotic lesion in the carotid arteries. Overal l, the patient's condition has remained stable and I have informed her that likely explanation for he r yesterday's symptoms were episode of vertigo, nothing needs to be done about it at this time except she may consider using meclizine on a p.r.n. basis if she has any recurrence of symptoms and she was made aware of drowsiness as a possible side effect with that medication use. As I was explaining it to her that upon discharge I would like for her to discontinue olmesartan/HCTZ, I am not 100% sure a bout if she was clear about this instruction and what I have suggested is that I will call her today later and go over all her medications that she has at home and I will give her appropriate instructio n at that time as my plan is to discontinue olmesartan/HCTZ and start olmesartan 40 mg daily, and I w ill send the prescription to her pharmacy after I communicated with her later today. The patient was instructed to come see me a week after next for followup. Final Diagnoses: 1.Vertigo. 2.Hyponatremia. 3.Anemia, unspecified. 4.Hypothyroidism. 5.Hypertension. 6.Hyperlipidemia. 7.Chronic atrial fibrillation. NISHANT/MODL Voice ID: [id number] Report ID: [id number]
== END 2022-01-11 10:50 | disposition home or self-care (01) ==
LOC: ER 09:10 → ERHOLD 14:11 → 4TH 16:37
PROVIDERS: ADMIT Internal Medicine; ATTEND Internal Medicine
DX: R42 Dizziness and giddiness (principal); E87.1 Hypo-osmolality and hyponatremia; D64.9 Anemia, unspecified; E03.9 Hypothyroidism, unspecified; I10 Essential (primary) hypertension; E78.5 Hyperlipidemia, unspecified; I48.11 Longstanding persistent atrial fibrillation; Z20.822 Contact with and (suspected) exposure to COVID-19; Z23 Encounter for immunization
CPT/HCPCS: 96361; 93005; 87088; 85025; 87086; 80048; 36415; 83735 ×2; 84100; 85610; 80061; 80076; 85730; 84443; 84484; 80053; 70450; 70498; 70553; 70544; 70549; 94760; 96360; 99285; 87811; Q9967; A9577; J7030 ×2; 81003; 81015; G0378

== ENCOUNTER 2023-02-06 23:14 | Observation (INO) | payer OTHER ==
--- OUTSIDE RECORDS SUMMARY | 2023-02-06 23:18 | XMS REPORT | Continuity of Care Document ---
:1940 Author Organization [facility] t Address [address] [place] [address] Care Team Providers Name Role Phone Raudel Isidro Primary Care Physician [email or web address] Attending Clinician Unavailable SHANTAL BEASLEY Attending Clinician Unavailable [email or web address]_S Admitting Clinician Unavailable SHANTAL BEASLEY Admitting Clinician Unavailable Problems Condition Condition Condition Status Onset Resolution Last Treating Co mments Source Name Details Category Date Date Treatment Clinician Date Atrial Atrial Disease Recurre 2016-[address] [facility] [address] fibrillati fibrillati nce 2-12 [facility] kes on on 00:00: Medical 00 Center Acute Acute Disease Recurre 2015-[address] [facility] ischemic ischemic nce 0-25 [facility] right MCA right MCA 00:00: [facility] stroke stroke 00 Center Closed Closed Problem Active Common displaced displaced Spir it fracture fracture - [facility] of of proximal proximal [facility] phalanx of phalanx of Me dical lesser toe lesser toe Ce nter of left of left foot, foot, initial initial encounter encounter Pain in Pain in Problem Active Common toe of toe of Spirit left foot left foot - [facility] Pain in Pain in Diagnosis Active Commo n joint of joint of Spirit left knee left knee - [facility] Left Left Diagnosis Active Common sciatic sciatic Spirit nerve pain nerve pain - [facility] Allergies, Adverse Reactions, Alerts Allergy Allergy Status Severity Reaction(s) Onset Inactive Treating Comm ents Source Name Type Date Date Clinician MORPHINE Adverse Active Info Not Commo n Reaction Available Spiri t - [facility] Social History Social Habit Start Date Stop Date Quantity Comments Source Sexual orientation [facility] Alcohol intake 2017-02-18 2017-02-18 Current [facility] es 00:00:00 00:00:00 non-drinker of Medical Ce nter alcohol (finding) Tobacco use and 2016-01-01 2016-01-01 Never used [facility] exposure 00:00:00 00:00:00 [facility] Sex Assigned At [birth year] [facility] 00:00:00 00:00:00 [facility] Smoking Status Start Date Stop Date Source Never smoker [facility] Medications Ordered Filled Start Stop Current Ordering Indication Dosage Frequency Signature Comments Components Source Medication Medication Date Date Medication? Clinician (SIG) Name Name Pradaxa Pradaxa 2017-03 Yes Sreekanth 1 capsule Common 0-10 Shukla [facility] 00:00: - [facility] levothyroxi 2016-03 Yes 50ug Take 50 [facility] [...] 13:19: mouth Medical tablet 31 daily. Center metoprolol 2016-03 Yes 50mg QD Take 50 [...] MG 13:19: mouth Medical tablet 31 daily. [facility] metoprolol 2016-03 Yes 50mg QD Take [address] (TOPROL-XL) 2-13 by mouth Luke s 100 MG 24 13:19: daily . Medic al hr tablet 31 Center pantoprazol 2016-03 Yes 40mg QD Take [address] [facility] 2-13 tablet (40 [facility] (PROTONIX) 00:00: mg total) Me dical 40 MG 00 by mouth Center tablet daily. pantoprazol 2016-03 Yes 40mg QD Take [address] [facility] e 2-13 tablet (40 [facility] (PROTONIX) 00:00: mg total) Me dical 40 MG 00 by mouth Center tablet daily. atorvastati 2015-03 Yes 80mg QD Take [address] [facility] (LIPITOR) 0-28 tablets [facility] 10 MG 00:00: (80 mg Medical tablet 00 total) by Center mouth daily. atorvastati 2015-03 Yes 80mg QD Take [address] [facility] (LIPITOR) 0-28 tablets [facility] 10 MG 00:00: (80 mg Medical tablet 00 total) by Center mouth daily. irbesartan- 2015-03 Yes 1{tbl} QD Take [address] hydrochloro 0-17 tablet by Nya es thiazide 00:00: mouth Medical (AVALIDE) 00 daily. Center 300-12.5 mg per tablet irbesartan- 2015-03 Yes 1{tbl} QD Take [address] hydrochloro 0-17 tablet by Nya es thiazide 00:00: mouth Medical (AVALIDE) 00 daily. Center 300-12.5 mg per tablet Atorvastati Atorvastati Yes Sreekanth not Common n Calcium n Calcium Shukla defined [facility] Metoprolol Metoprolol Yes Sreekanth not C ommon Succinate Succinate Shukla defined Spirit [facility] ER [facility] Levothyroxi Levothyroxi Yes Sreekanth not Common ne Sodium ne Sodium Shukla defined [facility] Amlodipine Amlodipine Yes Sreekanth not C ommon Besylate Besylate Shukla defined Sp jo [facility] Irbesartan- Irbesartan- Yes Sreekanth not Common Hydrochloro Hydrochloro Shukla defined Spirit thiazide thiazide - [facility] Procedures This patient has no known procedures. Encounters Start End Encounter Admission Attending Care Care Encounter Source Date/Time Date/Time Type Type Clinicians Facility Department ID 2023-01-05 2023-01-05 Outpatient [email or web address] PRIV PRIV [id number] [facility] 00:00:00 00:00:00 diyala_S [id number] Medic al 2023-01-05 2023-01-05 Outpatient [email or web address] PRIV PRIV [id number] [facility] 00:00:00 00:00:00 diyala_S [id number] Medic al 2018-10-06 2018-10-06 [id number] Common 11:00:00 11:00:00 [facility] 2017-12-16 2017-12-16 [facility] [id number] Common 08:30:00 08:30:00 [facility] Results Test Description Test Time Test Comments [...] WBC 0-0 (BEAKER) (test code = 413) [id number] 07:13:00 Test Item Value Reference Range Interpretation Comments BLOOD UREA NITROGEN (BEAKER) (test 15 mg/dL 7-21 code = 354) [id number] 07:13:00 Test Item Value Reference Range Interpretation Comments SODIUM (BEAKER) (test code = 381) 138 meq/L 136-145 POTASSIUM (BEAKER) (test code = 4.0 meq/L 3.5-5.1 379) CHLORIDE (BEAKER) (test code = 382) 108 meq/L 98-107 H CO2 (BEAKER) (test code = 355) 23 meq/L 22-29 [id number] 07:13:00 Test Item Value Reference Range Interpretation Comments CREATININE (BEAKER) 0.95 mg/dL 0.57-1.25 (test code = 358) EGFR (BEAKER) (test 57 mL/min/1.73 ESTIMA FARIHA GFR IS code = 1092) sq m NOT ACCURATE CREATININE CLEARANCE IN PREDICTING GLOMERULAR FILTRATION RATE . ESTIMATED GFR I S NOT APPLICABLE FOR DIALYSIS PATIEN TS. [id number] 07:07:00 Test Item Value Reference Range Interpretation Comments PARTIAL THROMBOPLASTIN TIME 64.7 seconds 22.5-36.0 H (BEAKER) (test code = 760) [id number] 02:43:00 Test Item Value Reference Range Interpretation Comments PARTIAL THROMBOPLASTIN TIME 38.0 seconds 22.5-36.0 H (BEAKER) (test code = 760) Prior to initiating [id number] 17:59:00 Test Item Value Reference Range Interpretation Comments ACTIVATED CLOTTING TIME [address] [facility] 2667 (BEAKER) (test code = JUAN Rick [place] [address]) [id number] 17:14:00 Test Item Value Reference Range Interpretation Comments ACTIVATED CLOTTING TIME 329 sec TEST ED AT [place] [address] ([facility]) (test code = JUAN Rick [facility] 441) [id number] 17:14:00 Test Item Value Reference Range Interpretation Comments ACTIVATED CLOTTING TIME 334 sec TEST ED AT [place] [address] ([facility]) (test code = JUAN Rick [place] [address]) [id number] 17:14:00 Test Item Value Reference Range Interpretation Comments ACTIVATED CLOTTING TIME 345 sec TEST ED AT [place] [address] ([facility]) (test code = JUAN Rick [place] [address]) [id number] 17:14:00 Test Item Value Reference Range Interpretation Comments ACTIVATED CLOTTING TIME 274 sec TEST ED AT [place] [address] ([facility]) (test code = JUAN Rick [place] [address]) [id number] BASIC METABOLIC [id number] 07:16:00 Test Item Value Reference Range Interpretation [...] NOT APPLICABLE FOR DIALYSIS PATIEN TS. PROTHROMBIN [id number] 07:07:00 Test Item Value Reference Range Interpretation [...] if on CoumadinCBC W/PLT COUNT & AUTO [id number] 07:00:00 Test Item Value Reference Range Interpretation [...] % 0-1 PERCENT (BEAKER) (test code = 2801)
[2023-02-06] MEDS ORDERED: MORPHINE 4 MG/ML SYR ONE (23:42)
[2023-02-06] MEDS ORDERED: ONDANSETRON 4 MG/2 ML VIAL ONE (23:43)
[2023-02-07] LABS: Hematocrit 35.1 % (36.0-45.0); MCV 88.9 fL (80-100); MPV 8.4 fL (7.6-11.3); Platelets 250 thou/uL (152-406); RBC Red Blood Cell Count 3.95 M/uL (3.86-4.86)
[2023-02-07 00:01] LABS: Absolute Lymphocytes (CBC) 1.3 K/uL (0.7-4.9); Lymphocytes % 15.3 % (15.3-44.8)
[2023-02-07 00:20] LABS: Albumin 3.3 g/dL (3.4-5.0); Bilirubin Direct 0.2 mg/dL (0-0.2); Bilirubin Indirect, Calculated 0.4 mg/dL (0.2-0.8); Bilirubin Total 0.6 mg/dL (0.2-1.0); Potassium 3.9 mEq/L (3.5-5.1); Protein, Total 7.1 g/dL (6.4-8.2); Troponin High Sensitivity 16.6 pg/mL (<58.9)
--- NOTE | 2023-02-07 03:40 | P.HP ---
Certification for Inpatient Patient admitted to: Observation With expected LOS: <2 Midnights Patient will require the following post-hospital care: None Practitioner: I am a practitioner with admitting privileges, knowledge of patient current condition, hospital course, and medical plan of care. Services: Services provided to patient in accordance with Admission requirements found in Title 42 Section 412.3 of the Code of Federal Regulations Patient History Date of Service: 02/07/23 Primary Care Provider: Loulou Reason for admission: Chest pain History of Present Illness: Ms. Flores is an 82 year old female with past medical history of coronary artery disease, atrial fibrillation on pradaxa, hypertension, hyperlipidemia, and hypothyroidism who presented to the emergency department with complaints of chest pain and vomiting. She states that her chest pain started about 4 days ago, radiates down her left arm and is associated with body aches, nausea, and vomiting. Workup up in the was negative- troponin within normal limits, CT negative, EKG without any abnormalities. Vital signs have been stable. ED provider wishes to admit patient for chest pain, ACS rule out. Allergies morphine Allergy (Intermediate, Verified 03/08/19 16:20) SYNCOPE Home medications list reviewed: Yes Home Medications: Metoprolol Succinate [Toprol Xl] 100 mg PO DAILY 10/30/11 Dabigatran Etexilate Mesylate [Pradaxa*] 150 mg PO BID 03/08/19 Levothyroxine [Synthroid*] 50 mcg PO NBAPJ2DS #30 tablet 03/09/19 Olmesartan/Hydrochlorothiazide [Benicar Hct 40-12.5 mg Tablet] 1 tab PO DAILY 01/11/22 - Past Medical/Surgical History Diabetic: No -: History of diverticulosis -: HTN -: Prior CVA -: Hyperlipidemia -: Atrial fibrillation -: Chronic anti coagulation therapy -: Hypothyroidism -: Cardiac ablation -: bob cataract SX -: bladder mesh -: cardiac cath -: miguelina -: appendectomy -: hernia sx -: hysterectomy -: Heart monitor Psychosocial/ Personal History: Patient is - Family History Sister -: Heart disease, Hypertension, Lung disease, Cancer Mother -: Heart disease, Hypertension, Stroke - Social History Smoking Status: Never smoker Alcohol use: Yes CD- Drugs: No Caffeine use: Yes Place of Residence: Home Review of Systems Cardiovascular: Chest Pain Gastrointestinal: Nausea, Vomiting, Abdominal Pain Physical Examination - Vital Signs Temperature: 97.8 F Blood Pressure: 127/51 Pulse: 63 Respirations: 20 Pulse Ox (%): 95 - Physical Exam General: Alert, In no apparent distress HEENT: Atraumatic, EOMI, Sclerae nonicteric Neck: Supple, 2+ carotid pulse no bruit Respiratory: Clear to auscultation bilaterally, Normal air movement Cardiovascular: Regular rate/rhythm, Normal S1 S2 Gastrointestinal: Normal bowel sounds, No tenderness Musculoskeletal: No tenderness Integumentary: No rashes Neurological: Normal speech, Normal affect - Studies Laboratory Data (last 24 hrs) 02/06/23 02/06/23 23:37 23:37 WBC 8.60 Hgb 11.9 L Hct 35.1 L Plt Count 250 Sodium 133 L Potassium 3.9 BUN 26 H Creatinine 1.24 H Glucose 135 H Magnesium 2.0 Total Bilirubin 0.6 AST 21 ALT 24 Alkaline Phosphatase 94 Lipase 44 Assessment and Plan - Problems (Diagnosis) (1) Chest pain Current Visit: Yes Status: Acute Qualifiers: Chest pain type: unspecified Qualified Code(s): R07.9 - Chest pain, unspecified (2) Hypertension Current Visit: Yes Status: Chronic Qualifiers: Hypertension type: primary hypertension Qualified Code(s): I10 - Essential (primary) hypertension (3) Atrial fibrillation Current Visit: Yes Status: Chronic Qualifiers: Atrial fibrillation type: paroxysmal Qualified Code(s): I48.0 - Paroxysmal atrial fibrillation (4) Hypothyroidism Current Visit: Yes Status: Chronic Qualifiers: Hypothyroidism type: unspecified Qualified Code(s): E03.9 - Hypothyroidism, unspecified (5) Hyperlipidemia Current Visit: Yes Status: Chronic Qualifiers: Hyperlipidemia type: unspecified Qualified Code(s): E78.5 - Hyperlipidemia, unspecified - Plan Patient is admitted for chest pain, ACS rule out. Trend troponin, monitor on telemetry, consult cardiology. Covid/flu pending. Continue pradaxa. Monitor and replete electrolytes per protocol. Full code. Discharge Plan: Home Plan to discharge in: 24 Hours - Advance Directives Does patient have a Living Will: No Does patient have a Durable POA for Healthcare: No - Code Status/Comfort Care Code Status Assessed: Yes Code Status: Full Code Physician Review: Patient Assessed, Agree with Above Assessment and Plan Critical Care: No Time Spent Managing Pts Care (In Minutes): 50
--- NOTE | 2023-02-07 03:46 | ER ---
Nurse's Notes [facility] Name: Cierra Flores Age: 82 yrs Sex: Female : 1940 Arrival Date: 02/06/2023 Time: 23:14 Bed 4 Private MD: Diagnosis: Chest pain, unspecified;SARS-associated coronavirus as the cause of diseases classified elsewhere Presentation: 02/06 23:41 Chief complaint: Patient states: Chest pain that started 4 days ago that radiates down jw7 left arm, body aches, and nausea for 4 days and vomiting that started today. Coronavirus screen: Client presents with at least one sign or symptom that may indicate coronavirus-19. Standard/surgical mask placed on the client. Ebola Screen: No symptoms or risks identified at this time. Initial Sepsis Screen: Does the patient meet any 2 criteria? No. Patient's initial sepsis screen is negative. Does the patient have a suspected source of infection? No. Patient's initial sepsis screen is negative. Risk Assessment: Do you want to hurt yourself or someone else? Patient reports no desire to harm self or others. Onset of symptoms was February 02, 2023. 23:41 Method Of Arrival: Wheelchair jw 23:41 Acuity: ELIO 2 jw7 Triage Assessment: 23:44 General: Appears in no apparent distress. uncomfortable, Behavior is calm, cooperative. jw7 Pain: Complains of pain in chest Pain radiates to left arm Pain currently is 5 out of 10 on a pain scale. Quality of pain is described as pressure, squeezing, Pain began 2-3 days ago. Is continuous. EENT: No deficits noted. No signs and/or symptoms were reported regarding the EENT system. Neuro: Luciano Agitation-Sedation Scale (RASS): 0 - Alert and Calm Level of Consciousness is awake, alert, obeys commands, Oriented to person, place, time, situation. Cardiovascular: Reports chest pain, nausea, vomiting, Capillary refill < 3 seconds Clubbing of nail beds is absent JVD is absent Patient's skin is warm and dry. Chest pain is described as Pain is 5 out of 10 on a pain scale. quality is pressure, squeezing, is located in substernal area radiates to left arm(s) began 4 days ago episodes are continuous. Respiratory: Airway is patent Trachea midline Respiratory effort is even, unlabored, Respiratory pattern is regular, symmetrical. GI: No deficits noted. No signs and/or symptoms were reported involving the gastrointestinal system. : No deficits noted. No signs and/or symptoms were reported regarding the genitourinary system. Derm: No deficits noted. No signs and/or symptoms reported regarding the dermatologic system. Musculoskeletal: No deficits noted. No signs and/or symptoms reported regarding the musculoskeletal system. Historical: - Allergies: 23:44 Morphine; jw7 - Home Meds: 23:44 levothyroxine 50 mcg tab 1 tab once daily [Active]; metoprolol succinate 100 mg Oral jw7 Tb24 1 tab once daily [Active]; olmesartan-hydrochlorothiazide 20-12.5 mg oral tablet [Active]; Pradaxa 150 mg Oral cap 1 cap 2 times per day [Active]; - PMHx: 23:44 Atrial Fib; CVA; Heart Monitor; High Cholesterol; Hypertension; Hypothyroidism; jw7 - PSHx: 23:44 Cholecystectomy; hysterectomy; Appendectomy; Loop Recorder; jw7 - Immunization history:: Adult Immunizations up to date, Client reports receiving the 2nd dose of the Covid vaccine, Pneumococcal vaccine is not up to date, Flu vaccine is not up to date. - Social history:: Smoking status: Patient denies any tobacco usage or history of. Patient/guardian denies using alcohol, street drugs, IV drugs. - Family history:: not pertinent. Screenin/02 04:[facility] Fall Risk Assessment (Adult) History of falling in the last 3 months, nw1 including since admission Yes- single mechanical fall (1 pt) Confusion or Disorientation No (0 pts) Intoxicated or Sedated No (0 pts) Impaired Gait No (0 pts) Mobility Assist Device Used No (0 pt) Altered Elimination No (0 pt) Score/Fall Risk Level 0 - 2 = Low Risk Oriented to surroundings, Maintained a safe environment, Assessed \T\ reinforced patient's understanding of fall precautions, Provided non-skid footwear, Hourly rounding (assess needs \T\ fall precautionary measures) done. Abuse screen: Denies threats or abuse. Denies injuries from another. Nutritional screening: No deficits noted. Tuberculosis screening: No symptoms or risk factors identified. Assessment: 02/06 23:51 General: Appears uncomfortable, Behavior is calm, cooperative, appropriate for age. la4 Pain: Complains of pain in right lower quadrant Pain does not radiate. Pain currently is 5 out of 10 on a pain scale. Quality of pain is described as aching, sharp, Is continuous. Neuro: No deficits noted. Vital Signs: 23:41 BP 148 / 109; Pulse 84; Resp 20 S; Temp 97.8(O); Pulse Ox 95% on R/A; Weight 71.21 kg; jw7 Height 5 ft. 3 in. ; Pain 5/10; 02/07 04:54 BP 126 / 48; Pulse 63; Resp 16; Pulse Ox 95% ; nw1 02/06 23:41 Body Mass Index 27.81 (71.21 kg, 160.02 cm) jw7 02/06 23:41 Pain Scale: Adult jw7 ED Course: 02/06 23:18 Patient arrived in ED. vc1 23:18 Tal Faustin MD is Attending Physician. rt 23:22 Julian Miller, RN is Primary Nurse. la4 23:31 CT Abd/Pelvis - IV Contrast Only Sent. la4 23:39 Inserted saline lock: 20 gauge in left antecubital area, using aseptic technique. Blood ls5 collected. 23:40 EKG done, by ED staff, reviewed by Tal Faustin MD. ls5 23:44 Triage completed. jw7 23:44 Arm band placed on. jw7 02/07 00:06 Radiology exam delayed due to lab results not completed at this time. (BUN/Creatinine). eh4 00:39 XRAY Chest (1 view) In Process Unspecified. EDMS 01:37 CT Abd/Pelvis - IV Contrast Only In Process Unspecified. EDMS 03:46 Lito Lee is Hospitalizing Provider. sb4 04:55 No provider procedures requiring assistance completed. nw1 04:55 Patient has correct armband on for positive identification. Placed in gown. Bed in low nw1 position. Call light in reach. Side rails up X2. Provided Education on: POC. Client placed on continuous cardiac and pulse oximetry monitoring. NIBP monitoring applied. secured entrance monitor on. Pulse ox on. NIBP on. Door closed. Noise minimized. Warm blanket given. 07:20 Patient admitted, IV remains in place. rs5 Administered Medications: 02/06 23:47 Drug: Ondansetron IVP 4 mg IVP once; over 2 minutes Route: IVP; Site: left antecubital; la4 23:47 Drug: morphine IVP or IV 4 mg IVP once over 4 mins Route: IVP; Infused Over: 4 mins; la4 Site: left antecubital; Medication: 02/07 04:56 VIS not applicable for this client. nw1 Outcome: 03:46 Decision to Hospitalize by Provider. sb4 07:20 Admitted to ER Hold. Please see [facility] for further documentation. rs5 07:20 Condition: stable 07:20 Instructed on the need for admit, Demonstrated understanding of instructions, 16:15 Patient left the ED. rs5 Signatures: Dispatcher [employer] EDMS Jania Rodríguez RN RN vc1 Vilma Sierra, RN RN jw7 Waylon Hernandez 4 Awilda Pompa, PA-C PA-C sb4 Tal Faustin MD MD rt Richard Be RN RN rs5 Adin Guerra ls5 Julian Miller RN RN la4 Sasha Posada RN RN nw1
--- NOTE | 2023-02-07 03:46 | EDPHYS ---
Physician Documentation [facility] Name: Cierra Flores Age: 82 yrs Sex: Female : 1940 Arrival Date: 02/06/2023 Time: 23:14 Bed 4 Private MD: ED Physician Tal Faustin HPI: 02/07 05:07 This 82 yrs old Female presents to ER via Wheelchair with complaints of Chest pain, rt nausea, vomiting. 05:07 Patient presents to the ED with chest pain starting about 1030, she is associated rt nausea, vomit, denies abdominal pain. Symptoms are aching in nature, moderate severity, no other aggravating alleviating factors.. Historical: - Allergies: 02/06 23:44 Morphine; jw7 - Home Meds: 23:44 levothyroxine 50 mcg tab 1 tab once daily [Active]; metoprolol succinate 100 mg Oral jw7 Tb24 1 tab once daily [Active]; olmesartan-hydrochlorothiazide 20-12.5 mg oral tablet [Active]; Pradaxa 150 mg Oral cap 1 cap 2 times per day [Active]; - PMHx: 23:44 Atrial Fib; CVA; Heart Monitor; High Cholesterol; Hypertension; Hypothyroidism; jw7 - PSHx: 23:44 Cholecystectomy; hysterectomy; Appendectomy; Loop Recorder; jw7 - Immunization history:: Adult Immunizations up to date, Client reports receiving the 2nd dose of the Covid vaccine, Pneumococcal vaccine is not up to date, Flu vaccine is not up to date. - Social history:: Smoking status: Patient denies any tobacco usage or history of. Patient/guardian denies using alcohol, street drugs, IV drugs. - Family history:: not pertinent. ROS: 02/07 05:07 Constitutional: Negative for fever, chills, and weight loss, Respiratory: Negative for rt shortness of breath, cough, wheezing, and pleuritic chest pain, MS/Extremity: Negative for injury and deformity, Skin: Negative for injury, rash, and discoloration, Neuro: Negative for headache, weakness, numbness, tingling, and seizure, Psych: Negative for depression, anxiety, suicide ideation, homicidal ideation, and hallucinations, Cardiovascular: Positive for chest pain, Negative for edema, Abdomen/GI: Positive for abdominal pain, nausea and vomiting, Exam: 05:07 Constitutional: This is a well developed, well nourished patient who is awake, alert, rt and in no acute distress. Head/Face: Normocephalic, atraumatic. Chest/axilla: Normal chest wall appearance and motion. Nontender with no deformity. No lesions are appreciated. Cardiovascular: Regular rate and rhythm with a normal S1 and S2. No gallops, murmurs, or rubs. Normal PMI, no JVD. No pulse deficits. Respiratory: Lungs have equal breath sounds bilaterally, clear to auscultation and percussion. No rales, rhonchi or wheezes noted. No increased work of breathing, no retractions or nasal flaring. Abdomen/GI: Soft, non-tender, with normal bowel sounds. No distension or tympany. No guarding or rebound. No evidence of tenderness throughout. Skin: Warm, dry with normal turgor. Normal color with no rashes, no lesions, and no evidence of cellulitis. MS/ Extremity: Pulses equal, no cyanosis. Neurovascular intact. Full, normal range of motion. Neuro: Awake and alert, GCS 15, oriented to person, place, time, and situation. Cranial nerves II-XII grossly intact. Motor strength 5/5 in all extremities. Sensory grossly intact. Cerebellar exam normal. Normal gait. Psych: Awake, alert, with orientation to person, place and time. Behavior, mood, and affect are within normal limits. 05:07 ECG was reviewed by the Attending Physician. rt Vital Signs: 02/06 23:41 BP 148 / 109; Pulse 84; Resp 20 S; Temp 97.8(O); Pulse Ox 95% on R/A; Weight 71.21 kg; jw7 Height 5 ft. 3 in. ; Pain 5/10; 02/07 04:54 BP 126 / 48; Pulse 63; Resp 16; Pulse Ox 95% ; nw1 02/06 23:41 Body Mass Index 27.81 (71.21 kg, 160.02 cm) [facility] 02/06 23:41 Pain Scale: Adult [facility] MDM: 02/06 23:21 Patient medically screened. snw 02/07 05:07 Differential Diagnosis Obstruction, appendicitis, diverticulitis, acute coronary rt syndrome. Data reviewed: vital signs, nurses notes, lab test result(s), EKG, radiologic studies. Consideration of Admission/Observation Patient was admitted/placed on observation. Management of patient was discussed with the following: Hospitalist: Agrees to admit. I considered the following discharge prescriptions or medication management in the emergency department Medications were administered in the Emergency Department. See MAR. Independent interpretation of the following test(s) in the Emergency Department CT Scan: My interpretation is No bowel obstruction seen on my interpretation of CT scan images. Care significantly affected by the following chronic conditions: Atrial fibrillation. Counseling: I had a detailed discussion with the patient and/or guardian regarding the historical points, exam findings, and any diagnostic results supporting the discharge/admit diagnosis, lab results, radiology results, the need for further work-up and treatment in the hospital. Response to treatment: the patient's symptoms have markedly improved after treatment. 02/06 23:24 Order name: Basic Metabolic Panel; Complete Time: 00:24 rt 02/06 23:24 Order name: CBC with Diff; Complete Time: 00:24 rt 02/06 23:24 Order name: LFT's; Complete Time: 00:24 rt 02/06 23:24 Order name: Magnesium; Complete Time: 00:24 rt 02/06 23:24 Order name: Troponin HS; Complete Time: 00:24 rt 02/06 23:24 Order name: Lipase; Complete Time: 00:24 rt 02/07 03:26 Order name: Flu; Complete Time: 04:16 sb4 02/07 03:40 Order name: SARS-COV-2 RT PCR; Complete Time: 04:22 EDWA 02/07 08:56 Order name: Troponin High Sensitivity; Complete Time: 09:07 EDWA 02/07 14:42 Order name: Troponin High Sensitivity EDWA 02/06 23:24 Order name: XRAY Chest (1 view) rt 02/06 23:24 Order name: CT Abd/Pelvis - IV Contrast Only rt 02/07 09:08 Order name: US Extremity Venous W Compression [place] saman 02/07 10:19 Order name: US EDWA 02/06 23:24 Order name: EKG; Complete Time: 23:24 rt 02/06 23:24 Order name: Cardiac monitoring; Complete Time: 23:31 rt 02/06 23:24 Order name: EKG - Nurse/Tech; Complete Time: 23:31 rt 02/06 23:24 Order name: IV Saline Lock; Complete Time: 23:39 rt 02/06 23:24 Order name: Labs collected and sent; Complete Time: 23:39 rt 02/06 23:24 Order name: O2 Per Protocol; Complete Time: 23:31 rt 02/06 23:24 Order name: O2 Sat Monitoring; Complete Time: 23:31 rt EC:07 Rate is 82 beats/min. Rhythm is irregularly irregular, A fib with No ectopy. QRS [place] rt is Normal. NE interval is normal. QRS interval is normal. QT interval is normal. No Q waves. T waves are Normal. No ST changes noted. Interpreted by me. Administered Medications: 02/06 23:47 Drug: Ondansetron IVP 4 mg IVP once; over 2 minutes Route: IVP; Site: left antecubital; la4 23:47 Drug: morphine IVP or IV 4 mg IVP once over 4 mins Route: IVP; Infused Over: 4 mins; la4 Site: left antecubital; Disposition Summary: 02/07/23 03:46 Hospitalization Ordered Notes: Hospitalization Status: Observation sb4 Provider: Lito Lee sbLaurie Condition: Fair sb4 Problem: new sb4 Symptoms: are unchanged sb4 Bed/Room Type: Standard sb4 Location: Telemetry/MedSurg (observation)(02/07/23 13:54) eb Room Assignment: 222(02/07/23 15:41) eb Diagnosis - Chest pain, unspecified sb4 - SARS-associated coronavirus as the cause of diseases classified elsewhere saman Forms: - Medication Reconciliation Form sb4 - SBAR form sb4 - Leadership Thank You Letter sb4 Signatures: Dispatcher [employer] EDMS Pili Muniz RN RN kl Anderson, Corey, MD MD cha Waters, Shelly, EMERGENCY SERVICE WORKER-C EMERGENCY SERVICE WORKER-Elinor Bryan eb Vilma Sierra RN RN Awilda Pike PA-C PASalvador sb4 Tal Faustin MD MD rt Julian Miller RN RN la4 Corrections: (The following items were deleted from the chart) 02/07 03:40 03:27 SARS-COV-2 Antigen Rapid+I.LAB.BRZ ordered. EDMS EDMS 04:50 03:46 Telemetry/MedSurg (observation) sb4 kl 04:50 03:46 sb4 kl 13:54 04:50 [facility] ER HOLD kl eb 13:54 04:50 ERHOLD- kl eb 15:41 13:54 231 eb eb
[2023-02-07] MEDS ORDERED: PNEUMOCOCCAL VACCINE 0.5 ML IMVAC ONE (08:00)
[2023-02-07] MEDS ORDERED: INFLUENZA VACCINE (for 6+ mo) 0.5 ML DOSE IMVAC ONE ×2 (08:00→11:55)
[2023-02-07] MEDS: NA CHLORIDE 0.9% 1,000 ML IV SCH ×2 (08:10→21:30)
[2023-02-07] MEDS ORDERED: ONDANSETRON 4 MG/2 ML VIAL IV PRN (08:10)
[2023-02-07] MEDS ORDERED: ACETAMINOPHEN 325 MG TABLET PO PRN (08:10)
--- NOTE | 2023-02-07 10:19 | RAD REPORT ---
EXAM DESCRIPTION: US - Extrem Venous W Compress [place] - 02/07/2023 10:08 am CLINICAL HISTORY: PAIN Bilateral leg edema and swelling. COMPARISON: No comparisons TECHNIQUE: Real-time sonographic interrogation of the left and right lower extremity deep venous sys tems was performed. FINDINGS: Normal compressibility, flow augmentation, phasic flow and spontaneous flow is identified in both the left and right lower extremity deep venous systems. IMPRESSION: No sonographic evidence of left or right lower extremity deep venous thrombosis.
[2023-02-07] MEDS ORDERED: NA CHLORIDE 0.9% 1,000 ML ONE (11:33)
[2023-02-07] MEDS ORDERED: ACETAMINOPHEN 325 MG TABLET ONE (14:22)
--- NOTE | 2023-02-07 16:29 | P.PN ---
Date of Service: 02/07/23 Patient seen and examined. She reported frequent nonproductive cough associated with chest pain. Chest pain likely atypical Troponin trended negative. No ACS. COVID-19 infection, clear chest x-ray. Diagnosis COVID-19 upper respiratory infection Start Paxlovid. Supportive measures.
[2023-02-07 16:43] VITALS: O2SAT 95
--- NOTE | 2023-02-07 19:52 | RAD REPORT ---
EXAM DESCRIPTION: Chest 1 View AP CLINICAL HISTORY: Chest Pain COMPARISON: None. TECHNIQUE: Chest 1 View AP FINDINGS: Trachea midline. Mild aortic arch calcification. Heart size and pulmonary vessels within normal limits. Lungs clear without evidence of consolidation, mass, or significant pulmonary edema. No significant pleural effusion or pneumothorax. Osteopenia or diffuse decreased bone density. Cardiac loop recorder device overlies inferior left chest wall. IMPRESSION: No radiographic evidence of acute chest disease. Electronically signed by: Giacomo Rodriguez MD 02/07/2023 03:32 AM PLASTIC TILE LAYER Due to temporary technical issues with the PACS/Fluency reporting system, reports are being signed by the in house radiologists without review as a courtesy to insure prompt reporting. The interpreting radiologist is fully responsible for the content of the report.
--- NOTE | 2023-02-07 21:13 | RAD REPORT ---
EXAM DESCRIPTION: CT Abdomen and Pelvis With Intravenous Contrast CLINICAL HISTORY: Abd pain, body aches, vomiting TECHNIQUE: Axial computed tomography images of the abdomen and pelvis with intravenous contrast. S agittal and coronal reformatted images were created and reviewed. This CT exam was performed using one or more of the following dose reduction techniques: automated exposure control, adjustment of t he mA and/or kV according to patient size, and/or use of iterative reconstruction technique. COMPARISON: Abdomen pelvis CTA dated 03/08/2019 FINDINGS: Lung bases: Unremarkable. No mass. No consolidation. Mediastinum: Small hiatal hernia. ABDOMEN: Liver: The liver is enlarged and mildly diffusely low in density compatible with steatosis. Gallbladder and bile ducts: Prior cholecystectomy. Mild biliary dilatation. Pancreas: Unremarkable. No mass. No ductal dilation. Spleen: Unremarkable. No splenomegaly. Adrenals: Unremarkable. No mass. Kidneys and ureters: Unremarkable. No solid mass. No hydronephrosis. Stomach and bowel: Colonic diverticula without adjacent inflammation. No obstruction. No mucosa l thickening. PELVIS: Appendix: The appendix is not definitively visualized. No findings to suggest acute appendicitis. Bladder: Unremarkable. No mass. Reproductive: There has been a hysterectomy. No adnexal cysts or masses are identified. ABDOMEN and PELVIS: Intraperitoneal space: Unremarkable. No free air. No significant fluid collection. Bones/joints: Multilevel spondylosis. No acute fracture. No dislocation. Soft tissues: Tiny fat-containing umbilical hernia. Small fat-containing left inguinal hernia. Prio r right inguinal hernia repair. Vasculature: Moderate to severe atherosclerotic disease. No abdominal aortic aneurysm. Lymph nodes: Unremarkable. No enlarged lymph nodes. IMPRESSION: 1. No acute inflammatory process identified within the abdomen and pelvis. 2. Other findings as above. Electronically signed by: Marlene Fields MD 02/07/2023 03:10 AM MANAGER MATERIALS MANAGEMENT Due to temporary technical issues with the PACS/Fluency reporting system, reports are being signed by the in house radiologists without review as a courtesy to insure prompt reporting. The interpreting radiologist is fully responsible for the content of the report.
[2023-02-08 06:10] VITALS: BMI 27.8
[2023-02-08] MEDS ORDERED: LEVOTHYROXINE SOD 0.05 MG TABLET PO SCH (06:30)
[2023-02-08] MEDS ORDERED: hydroCHLOROthiazide 12.5 MG CAP PO SCH (09:00)
[2023-02-08] MEDS ORDERED: VALSARTAN 160 MG TAB PO SCH (09:00)
[2023-02-08] MEDS ORDERED: POTASSIUM CL SA 10 MEQ TAB PO ONE (09:00)
[2023-02-08] MEDS ORDERED: METOPROLOL XL 100 MG TAB PO SCH (09:00)
[2023-02-08] MEDS ORDERED: DABIGATRAN 75 MG CAP PO SCH (09:00)
[2023-02-08 09:24] VITALS: BP 161/67; TEMP 97.4
[2023-02-08] MEDS: NA CHLORIDE 0.9% 1,000 ML IV SCH (10:50)
[2023-02-08] MEDS ORDERED: NIRMATRELVIR/RITONAVIR TABLET PO SCH (12:00)
--- NOTE | 2023-02-08 16:15 | P.DS ---
Admission Date: 02/07/23 Discharge Date: 02/08/23 Primary Care Provider: Loulou Disposition: ROUTINE DISCHARGE Discharge Condition: FAIR Reason for Admission: Chest pain - Problems (1) Chronic atrial fibrillation Status: Acute (2) Abdominal pain Status: Acute (3) Chest pain Status: Acute Qualifiers: Chest pain type: unspecified Qualified Code(s): R07.9 - Chest pain, unspecified (4) Essential hypertension Onset Date: 11/07/16 Status: Chronic Brief History of Present Illness: Ms. Flores is an 82 year old female with past medical history of coronary artery disease, atrial fibrillation on pradaxa, hypertension, hyperlipidemia, and hypothyroidism who presented to the emergency department with complaints of chest pain and vomiting. She states that her chest pain started about 4 days ago, is associated with body aches, nausea, and vomiting. Patient reports prior upper respiratory symptoms. Workup up in the was negative- troponin within nor mal limits, CT negative, EKG without any abnormalities. Vital signs have been stable. COVID-19 test positive. Patient placed in observation for further evaluation and management. Hospital Course: Troponin trended negative. Patient was chest pain-free during the hospital stay. She experienced generalized bodyaches which resolved within 24 hours. She is currently asymptomatic. ACS ruled out. CT abdomen and pelvis did not show any acute disease. Patient is ambulatory, tolerating diet and stable vitals. She is deemed stable for discharge. Vital Signs/Physical Exam: Temp Pulse Resp BP Pulse Ox 97.4 F 72 20 161/67 H 97 02/08/23 08:00 02/08/23 09:33 02/08/23 08:00 02/08/23 09:33 02/08/23 08:00 General: Alert, In no apparent distress, Oriented x3 HEENT: Mucous membr. moist/pink Neck: Supple, JVD not distended Respiratory: Clear to auscultation bilaterally, Normal air movement Cardiovascular: No edema, Normal S1 S2, Irregular heart rate/rhythm Gastrointestinal: Normal bowel sounds, Soft and benign, Non-distended, No tenderness Musculoskeletal: No swelling Integumentary: No rashes, No cyanosis Neurological: Normal speech, Normal strength at 5/5 x4 extr Laboratory Data at Discharge: WBC 8.60 thou/uL (4.3-10.9) 02/06/23 23:37 Hgb 11.9 g/dL (12.0-15.0) L 02/06/23 23:37 Hct 35.1 % (36.0-45.0) L 02/06/23 23:37 Plt Count 250 thou/uL (152-406) 02/06/23 23:37 Sodium 133 mEq/L (136-145) L 02/06/23 23:37 Potassium 3.9 mEq/L (3.5-5.1) 02/06/23 23:37 BUN 26 mg/dL (7-18) H 02/06/23 23:37 Creatinine 1.24 mg/dL (0.55-1.02) H 02/06/23 23:37 Glucose 135 mg/dL (74-106) H 02/06/23 23:37 Magnesium 2.0 mg/dL (1.6-2.4) 02/06/23 23:37 Total Bilirubin 0.6 mg/dL (0.2-1.0) 02/06/23 23:37 AST 21 U/L (15-37) 02/06/23 23:37 ALT 24 U/L (13-56) 02/06/23 23:37 Alkaline Phosphatase 94 U/L (45-117) 02/06/23 23:37 Lipase 44 U/L (13-75) 02/06/23 23:37 Home Medications: Metoprolol Succinate [Toprol Xl] 100 mg PO DAILY 10/30/11 Dabigatran Etexilate Mesylate [Pradaxa*] 150 mg PO BID 03/08/19 Levothyroxine [Synthroid*] 50 mcg PO [id number] #30 tablet 03/09/19 Olmesartan/Hydrochlorothiazide [Benicar Hct 40-12.5 mg Tablet] 1 tab PO DAILY 01/11/22 Ascorbic Acid [Vitamin C] 1,000 mg PO BID #120 tab 02/08/23 Cholecalciferol (Vitamin D3) [Vitamin D3] 2,000 unit PO DAILY #30 tab 02/08/23 Zinc Sulfate [Zinc Sulfate*] 220 mg PO DAILY #30 cap 02/08/23 New Medications: Ascorbic Acid [Vitamin C] 1,000 mg PO BID #120 tab Cholecalciferol (Vitamin D3) [Vitamin D3] 2,000 unit PO DAILY #30 tab Zinc Sulfate [Zinc Sulfate*] 220 mg PO DAILY #30 cap Diet: AHA Activity: Ad pat Followup: Los Jamil MD [Primary Care Provider] - 1-2 Weeks Greg Pena MD [ACTIVE - CAN ADMIT] - Time spent managing pt's care (in minutes): 27
--- NOTE | 2023-02-10 13:41 | EKG ---
Test Date: 2023-02-06 Test Time: 23:29:10 Computer Builder: IMELDA MEASUREMENT RESULTS: Intervals: Rate: 82 NC: QRSD: 82 QT: 378 QTc: 441 [place]: P: NC: QRS: 41 T: 40 INTERPRETIVE STATEMENTS: Atrial fibrillation Abnormal ECG Compared to ECG 01/10/2022 10:10:54 Sinus rhythm no longer present ST (T wave) deviation no longer present Electronically Signed On 02-10-23 13:30:58 WEED COOKING OPERATOR by Greg Pena
== END 2023-02-08 14:46 | disposition home or self-care (01) ==
LOC: ER 23:14 → ERHOLD 02-07 03:32 → 2ND 02-07 15:00
PROVIDERS: ADMIT Internal Medicine; ATTEND Internal Medicine
DX: R07.9 Chest pain, unspecified (principal); I48.11 Longstanding persistent atrial fibrillation; U07.1 COVID-19; J98.8 Other specified respiratory disorders; E78.5 Hyperlipidemia, unspecified; I25.10 Atherosclerotic heart disease of native coronary artery without angina pectoris; E03.9 Hypothyroidism, unspecified; I10 Essential (primary) hypertension; R11.10 Vomiting, unspecified; R05.9 Cough, unspecified; R10.9 Unspecified abdominal pain; Z79.01 Long term (current) use of anticoagulants; Z88.5 Allergy status to narcotic agent; Z23 Encounter for immunization
CPT/HCPCS: 93005; 85025; 80048; 36415; 83735; 80076; 84484 ×3; 83690; 87635; 87804 ×2; 74177; 71045; 90471; 93970; 96375; 96374; 99285; Q9967; Q2035; J2405; J7030; G0378 ×4

== ENCOUNTER 2023-12-24 13:28 | Observation (INO) | payer OTHER ==
[2023-12-24 16:03] VITALS: BMI 25.1
[2023-12-24] MEDS ORDERED: MEPERIDINE HCL 25 MG/ML SYR IV PRN (16:30)
[2023-12-24] MEDS ORDERED: ONDANSETRON 4 MG/2 ML VIAL IV PRN (16:30)
[2023-12-24] MEDS ORDERED: Levofloxacin500mg IV 500 MG/100 ML BAG IV SCH (17:00)
[2023-12-24] MEDS ORDERED: METRONIDAZOLE 500mg IVPB 500 MG/100 ML BAG IV SCH (17:00)
--- NOTE | 2023-12-24 17:12 | RAD REPORT ---
EXAMINATION: CT ABDOMEN AND PELVIS WITHOUT CONTRAST CLINICAL INDICATION: abdominal pain TECHNIQUE: CT abdomen and pelvis was performed, without IV contrast, as per department protocol. Axia l, sagittal and coronal reconstructions were obtained. One or more of the following dose reduction techniques were used: Automated exposure control, adjustment of the mA and kV according to the patien t size, and iterative reconstruction. Unless otherwise specified, incidental findings do not require dedicated imaging follow-up. COMPARISON: 02/07/2023 FINDINGS: The lack of intravenous contrast limits the sensitivity of this exam for evaluation of solid visceral organs, vascular structures, and retroperitoneum. LOWER CHEST: The visualized lung bases are clear. LIVER:Normal in size and contour. No focal lesion. Grossly unremarkable gallbladder. SPLEEN: Normal size. No focal lesion. PANCREAS: No mass, ductal dilation, or raymon-pancreatic fluid. ADRENALS: Normal; no mass. KIDNEYS AND URETERS: Normal size and contour. No hydronephrosis. URINARY BLADDER: Normal contour. GASTROINTESTINAL TRACT: No evidence of bowel obstruction, significant free fluid, free air or abscess . There is severe diverticulosis coli of the sigmoid colon without diverticulitis. APPENDIX: Normal appendix. LYMPH NODES: No lymphadenopathy. MUSCULOSKELETAL: No acute or suspicious osseous abnormality. ADDITIONAL FINDINGS: Aorto iliac atherosclerosis. Prior right hernia repair suspected. IMPRESSION: Severe diverticulosis coli is seen affecting the sigmoid colon. Recommend follow-up colonoscopy if no t recently performed. Otherwise, no acute finding is seen.
[2023-12-24 17:47] LABS: Absolute Basophils 0.1 K/uL (0-0.5); Absolute Eosinophils 0.1 K/uL (0-0.5); Absolute Lymphocytes (CBC) 1.8 K/uL (0.7-4.9); Absolute Monocytes 0.7 K/uL (0.1-1.3); Absolute Neutrophil 5.2 K/uL (1.8-8.0); Basophils % 0.8 % (0-1.3); Eosinophils % 1.1 % (0-4.4); Hematocrit 38.8 % (36.0-45.0); Hemoglobin 12.9 g/dL (12.0-15.0); Lymphocytes % 23.3 % (15.3-44.8); MCH 30.5 pg (27.0-35.0); MCHC 33.1 g/dL (32.0-36.0); MCV 91.9 fL (80-100); MPV 8.2 fL (7.6-11.3); Monocytes % 8.7 % (3.3-12.3); Neutrophils % 66.1 % (41.7-73.7); Platelets 280 thou/uL (152-406); RBC Red Blood Cell Count 4.22 M/uL (3.86-4.86); Red Cell Distribution Width 13.2 % (12.1-15.2)
[2023-12-24 18:06] LABS: Albumin 3.4 g/dL (3.4-5.0); Anion Gap 8.3 mEq/L (5.0-15.0); Bilirubin Total 0.4 mg/dL (0.2-1.0); Globulin 3.5 g/dL (2.3-3.5); Magnesium 2.1 mg/dL (1.6-2.4); Potassium 4.3 mEq/L (3.5-5.1); Protein, Total 6.9 g/dL (6.4-8.2)
[2023-12-24] MEDS: D5 0.9 NS 1,000 ML IV SCH (18:48)
--- NOTE | 2023-12-24 19:35 | HP ---
Date of Admission: 12/24/2023 Chief Complaint: Abdominal pain. History Of Present Illness: This is an 83-year-old very pleasant female patient, who came into office today with 3 days' history of lower abdominal pain. The patient denies any fever, chills, nausea, vomiting, constipation, or diarrhea. No urinary complaints. Denies any vaginal discharge. She denies any blood in stool. After the patient was evaluated at office, decision was made to admit her to hospital with concerns about acute diverticulitis. Allergies: TO MORPHINE CAUSING SYNCOPE. Medications: Amiodarone 200 mg daily, amlodipine 5 mg daily in morning, atorvastatin 40 mg daily at bedtime, Pradaxa 150 mg 2 times a day, hydralazine 50 mg 2 times a day, levothyroxine 75 mcg daily, metoprolol 100 mg daily, olmesartan 40 mg daily. Review of Systems: GI: As mentioned above. All other systems reviewed and negative. Past Medical History: Significant for stroke in 2016 and she recovered completely without any neurological deficit, hypothyroidism, hypertension, hyperlipidemia, coronary artery disease, chronic atrial fibrillation since 2016. Past Surgical History: Cataract surgery, ablation for atrial fibrillation in 2016, hernia repair, cholecystectomy, appendectomy, hysterectomy, bladder suspension. Family History: Father had cerebral aneurysm. Mother had heart disease, hypertension, and stroke. Brother had myocardial infarction. Sister had lung cancer, heart disease, and hypertension. Social History: Negative for smoking and alcohol use. Physical Examination: Vital Signs: Blood pressure was 138/64, pulse 61, temperature 97.7, respiratory rate 16, weight 134.2 pounds, height 62 inches. General: Awake, alert, oriented, not in distress. HEENT: Head atraumatic, normocephalic. Conjunctivae nonerythematous. Sclerae white. Mouth, no thrush or edema noted. Ears/Nose, no mass, lesion, discharge noted. Neck: Supple. No JVD, lymph nodes, bruit, thyromegaly noted. Lungs: Bilateral good equal air entry. Clear to auscultation. No rhonchi. No rales. Heart: Normal heart sounds, no murmur or gallop. Abdomen: The patient has severe tenderness involving right upper quadrant, left upper quadrant, and left lower quadrant of her abdomen. Abdomen is not distended. Bowel sounds normal. No hepatosplenomegaly. No bruit and there is no rebound tenderness. Extremities: No leg edema. No calf tenderness. Skin: No rash, ulcer, cellulitis. Lymphatics: No lymph node enlargement in neck, supraclavicular, infraclavicular region. Neuro: No focal neurological deficit. Chest: Unremarkable. External Genitalia: Deferred. Rectal: Deferred. Laboratory Data: WBC 7.8, hemoglobin 12.9, platelets 280, sodium 135, potassium 4.3, chloride 107, bicarb 24, BUN 27, creatinine 1.57, glucose 102, liver function tests unremarkable, lipase 65, magnesium 2.1, urinalysis unremarkable except leukocytes 75, CT abdomen and pelvis severe sigmoid diverticulosis. Impression: 1. Acute diverticulitis. 2. Abdominal pain. 3. Hypertension. 4. Hyperlipidemia. 5. Coronary artery disease. 6. Chronic atrial fibrillation. 7. Chronic kidney disease. 8. Cervical spondylosis. 9. Lumbar spondylosis. 10. Hypothyroidism. Plan: We will go ahead and admit the patient to hospital for further evaluation and management of this problem. The patient is appropriate for inpatient and is expected to spend 2 midnights in hospital. We will keep her n.p.o. and give her IV fluid D5 normal saline at 75 cc/hour. Start empiric antibiotics per order. For her hypertension, we will continue antihypertensive medication per order. Monitor blood pressure and adjust blood pressure medication as it becomes necessary. For her hyperlipidemia, we will continue her statin therapy per order and no need for any further intervention. For her hypothyroidism, we will continue levothyroxine. No need for any further intervention. For atrial fibrillation, the patient takes Pradaxa and we will continue that per order. The patient takes amiodarone 200 mg daily. We will continue that as well. Pain medication was ordered. Total time spent today was 80 minutes including evaluation and management, making arrangements for hospital admission, review of prior office records. I will see her tomorrow morning for followup. NISHANT/MODL Voice ID: [id number] MTDD
[2023-12-24] MEDS: PIPERACIL/TAZO 3.375 GM VIAL IV ONE (20:01)
[2023-12-24] MEDS: NA CHLORIDE 0.9% 100 ML ONE (20:02)
[2023-12-24 20:13] LABS: Specific Gravity 1.009 (1.005-1.030); Sqamous Epithelial None Seen /HPF (None Seen); Urine Bacteria <20 /HPF (<20); Urine Bilirubin NEGATIVE (Negative); Urine Blood Negative (Negative); Urine Clarity Clear (Clear); Urine Color Colorless (Yellow); Urine Culture Reflex Order NOT NEEDED; Urine Glucose NEGATIVE (Negative); Urine Ketones NEGATIVE (Negative); Urine Micro Reflex YN NO BILL MICROSCOPIC; Urine Nitrite NEGATIVE (Negative); Urine Protein NEGATIVE (Negative); Urine RBC <5 /HPF (None Seen); Urine Urobilinogen Normal (Normal); Urine WBC <5 /HPF (<5); Urine Yeast (Budding) Trace /HPF (None Seen)
[2023-12-25] MEDS: PIPER TAZO 3.375 GM in NA CHLORIDE 0.9% 100 ML IV SCH (09:47)
[2023-12-25 12:36] VITALS: BP 157/71; TEMP 97.3
--- NOTE | 2023-12-25 17:42 | PN ---
Code 44 Note: Essentially, after my discussion with Dr. Jamil, patient came in with abdominal pain co ncerning for acute diverticulitis. Workup was done, which showed extensive diverticulosis. The maryellen ent clinically improved remarkably well with her pain being improved significantly. Her remainder of the workup was unremarkable. Therefore, as patient has progressed in her recovery faster than [facility], she will be discharged home on oral antibiotics and to follow up with Dr. Jamil as outpatient, whi ch is clinically appropriate. I approved this code 44. RADHA/RADHA Voice ID: [id number] Report ID: [id number]
--- NOTE | 2023-12-25 19:57 | DS ---
Date of Discharge: 12/25/2023 Disposition: The patient will be discharged to go home later today. Physical Examination: HEENT: Unremarkable. Lungs: Clear to auscultation. Heart: Sounds normal. Abdomen: Soft. No guarding, rigidity, distention. No rebound tenderness. Bowel sounds are normal and active and the patient has very mild tenderness in right upper quadrant, left upper quadrant, and left lower quadrant, and overall this is significantly better today than yesterday. Discharge Medications And Instructions: 1.Continue all prior home medications. 2.Augmentin 500 mg 2 times a day with food for 1 week. 3.Start [id number] Metamucil fiber gummy stick 3 fiber gummies daily. 4.Drink 60 ounces water daily. 5.Do not eat tomatoes, strawberry, popcorn, nuts. 6.Follow up at my office next week on Thursday or . Hospital Course: This is an 83-year-old very pleasant female patient, who was admitted to the hospit al yesterday after she came into office with abdominal pain. Please see dictated H and P for more in formation. After the patient was evaluated at office, decision was made to admit her to the hospital with this abdominal pain with clinical concerns about acute diverticulitis. Clinically, I was suspe cting acute diverticulitis and after she was admitted to the hospital, we started her on IV antibioti c which was Zosyn. The patient is on amiodarone at home, so we wanted to avoid antibiotic like Cipro or Levaquin because of drug interaction. Her CBC and chemistry were unremarkable and CAT scan of abdomen and pelvis without contrast had shown severe diverticulosis without any radiological change s of diverticulitis. There was no free air or any abscess. The patient was treated with this IV ant ibiotic, IV fluid. She was kept n.p.o. and I saw her this morning. She is feeling much better. Her abdominal pain has improved, but has not completely resolved she reported. We will start her on t and I have informed her that later this afternoon, we can possibly discharge her to go home with ou tpatient therapy and I did call the patient's daughter and communicate all the details with her as we ll. Ideally, one should have a colonoscopy on an elective outpatient basis, but at her age, there is definitely risk involved with colonoscopy, so I have discussed all these details with her as well an d her daughter and the patient understands and realizes that as well and she will think about it, but I will not push her to have a colonoscopy unless something changes clinically. Final Diagnoses: 1.Acute diverticulitis. 2.Hypertension. 3.Hyperlipidemia. 4.Coronary artery disease. 5.Chronic atrial fibrillation. 6.Chronic anticoagulation therapy. 7.Chronic kidney disease stage IIIA. 8.Cervical spondylosis. 9.Lumbar spondylosis. 10.Hypothyroidism. Total time spent today 40 minutes. NISHANT/MODL Voice ID: [id number] Report ID: [id number]
[2023-12-25] MEDS ORDERED: PIPER TAZO 3.375 GM in NA CHLORIDE 0.9% 100 ML IV SCH (20:00)
[2023-12-25] MEDS ORDERED: ATORVASTATIN 40 MG TAB PO SCH (21:00)
[2023-12-25] MEDS ORDERED: HYDRALAZINE HCL 25 MG TABLET PO SCH (21:00)
[2023-12-25] MEDS ORDERED: DABIGATRAN 75 MG CAP PO SCH (21:00)
[2023-12-26] MEDS ORDERED: LEVOTHYROXINE SOD 0.05 MG TABLET PO SCH (06:00)
[2023-12-26] MEDS ORDERED: METOPROLOL XL 100 MG TAB PO SCH (09:00)
[2023-12-26] MEDS ORDERED: VALSARTAN 160 MG TAB PO SCH (09:00)
[2023-12-26] MEDS ORDERED: HOME MED 1 EA UNK (Olmesartan Medoxomil [Olmesartan Medoxomil] 40 MG Tablet) PO SCH (09:00)
[2023-12-26] MEDS ORDERED: AMIODARONE HCL 200 MG TAB PO SCH (09:00)
[2023-12-26] MEDS ORDERED: AMLODIPINE 5 MG TAB PO SCH (09:00)
== END 2023-12-25 15:53 | disposition home or self-care (01) ==
LOC: 2ND 15:17 → INTOOBSV 15:17
PROVIDERS: ADMIT Internal Medicine; ATTEND Internal Medicine
DX: K57.92 Diverticulitis of intestine, part unspecified, without perforation or abscess without bleeding (principal); E03.9 Hypothyroidism, unspecified; I10 Essential (primary) hypertension; E78.5 Hyperlipidemia, unspecified; I25.10 Atherosclerotic heart disease of native coronary artery without angina pectoris; N18.31 Chronic kidney disease, stage 3a; M47.892 Other spondylosis, cervical region; M47.896 Other spondylosis, lumbar region; I48.11 Longstanding persistent atrial fibrillation; Z86.73 Personal history of transient ischemic attack (TIA), and cerebral infarction without residual deficits; Z88.5 Allergy status to narcotic agent; Z79.01 Long term (current) use of anticoagulants
CPT/HCPCS: 85025; 81001; 36415; 83735; 83690; 80053; 74176; J2543 ×2; J7042 ×2; G0378; G0379; J2175

== ENCOUNTER 2024-03-05 11:55 | Observation (INO) | payer OTHER ==
[2024-03-05] MEDS ORDERED: ONDANSETRON 4 MG/2 ML VIAL ONE (12:34)
[2024-03-05] MEDS ORDERED: FAMOTIDINE 20 MG/2 ML VIAL IV ONE (12:34)
[2024-03-05] MEDS ORDERED: FOLIC ACID 5 MG/ML VIAL ONE (12:35)
[2024-03-05] MEDS ORDERED: NA CHLORIDE 0.9% 1,000 ML ONE (12:35)
[2024-03-05 12:36] LABS: Absolute Basophils 0.1 K/uL (0-0.5); Absolute Eosinophils 0.1 K/uL (0-0.5); Absolute Lymphocytes (CBC) 2.3 K/uL (0.7-4.9); Absolute Monocytes 0.6 K/uL (0.1-1.3); Absolute Neutrophil 3.8 K/uL (1.8-8.0); Basophils % 1.3 % (0-1.3); Eosinophils % 1.1 % (0-4.4); Hematocrit 38.7 % (36.0-45.0); Hemoglobin 12.5 g/dL (12.0-15.0); Lymphocytes % 33.1 % (15.3-44.8); MCH 30.2 pg (27.0-35.0); MCHC 32.4 g/dL (32.0-36.0); MCV 93.2 fL (80-100); MPV 9.7 fL (7.6-11.3); Monocytes % 8.7 % (3.3-12.3); Neutrophils % 55.8 % (41.7-73.7); Platelets 227 thou/uL (152-406); RBC Red Blood Cell Count 4.15 M/uL (3.86-4.86); Red Cell Distribution Width 14.3 % (12.1-15.2)
[2024-03-05 12:44] LABS: PT Prothrombin Time 14.1 SECONDS (9.4-12.5); Protime INR 1.27
[2024-03-05 12:50] LABS: SARS-CoV-2 Antigen CONTROL BLUE LINE VIS/BG OK; SARS-CoV-2 Antigen Rapid Res Negative (Negative)
[2024-03-05 12:59] LABS: ALT/SGPT 29 U/L (13-56); Albumin 3.6 g/dL (3.4-5.0); Alkaline Phosphatase 54 U/L (45-117); Anion Gap 12.2 mEq/L (5.0-15.0); BUN Blood Urea Nitrogen 31 mg/dL (7-18); Bicarbonate 21 mEq/L (21-32); Bilirubin Total 0.6 mg/dL (0.2-1.0); Globulin 3.6 g/dL (2.3-3.5); Glomerular Filtration Rate 30 ml/min (=/>90); Glucose Level 110 mg/dL (74-106); Lipase 100 U/L (13-75); NT PRO-BNP 344 pg/mL (<450); Protein, Total 7.2 g/dL (6.4-8.2); Sodium Level 136 mEq/L (136-145); Troponin High Sensitivity 6.1 pg/mL (<58.9)
[2024-03-05 13:00] LABS: AST/SGOT 30 U/L (15-37); Bilirubin Direct < 0.2 mg/dL (0-0.2); Bilirubin Indirect, Calculated 0.4 mg/dL (0.2-0.8); Magnesium 2.1 mg/dL (1.6-2.4); Potassium 4.2 mEq/L (3.5-5.1)
--- NOTE | 2024-03-05 13:51 | RAD REPORT ---
EXAM: Chest Single View HISTORY: COUGH COMPARISON: 02/07/2023 FINDINGS: LUNGS/PLEURA: The lungs are clear. No pleural effusions or pneumothorax. No pulmonary edema. MEDIASTINUM: The mediastinal silhouette is within normal limits. CARDIAC: Within normal limits. UPPER ABDOMEN: No significant abnormality. BONES: No acute fracture. LINES/TUBES/OTHER: N/A IMPRESSION: No evidence of acute cardiopulmonary disease.
--- NOTE | 2024-03-05 14:10 | RAD REPORT ---
EXAMINATION: CT HEAD WITHOUT CONTRAST CLINICAL INDICATION: Female, 83 years old.Dizziness;Headache TECHNIQUE: Axial CT images from the skull base to the vertex without intravenous contrast. Coronal an d sagittal reformatted images were created from the data set. One or more of the following dose reduction techniques were used: Automated exposure control, adjustment of the mA and/or kV according to patient size, and/or iterative reconstruction. Unless otherwise specified, incidental findings do not require dedicated imaging follow-up. [id number]. COMPARISON: 01/10/2022 FINDINGS: INTRACRANIAL: No acute intracranial hemorrhage. No hydrocephalus. No mass effect or midline shift. Mi ld chronic small vessel ischemic changes.Mild cerebral atrophy. VASCULATURE: No visualized abnormalities in the arteries or dural venous sinuses. SCALP/SKULL: No significant soft tissue or osseous abnormalities. SINUSES: The visualized paranasal sinuses and mastoid air cells are predominantly clear. IMPRESSION: No acute intracranial abnormality.
--- NOTE | 2024-03-05 15:28 | ER ---
Nurse's Notes [facility] Name: Cierra Flores Age: 83 yrs Sex: Female : 1940 Arrival Date: 03/05/2024 Time: 11:55 Bed 15 Private MD: Diagnosis: Dizziness and giddiness;Syncope Near Presentation: 03/05 12:11 Chief complaint: Patient states: dizziness and blurred vision x1 week. When I try to tm6 walk it feels like I will fall. Not eating much. Lost 30 lb in the last 2-3 months. Coronavirus screen: Client denies travel out of the [place] in the last 14 days. Ebola Screen: Patient negative for fever greater than or equal to 101.5 degrees Fahrenheit, and additional compatible Ebola Virus Disease symptoms Patient denies exposure to infectious person. Patient denies travel to an Ebola-affected area in the 21 days before illness onset. No symptoms or risks identified at this time. Initial Sepsis Screen: Does the patient meet any 2 criteria? No. Patient's initial sepsis screen is negative. Does the patient have a suspected source of infection? No. Patient's initial sepsis screen is negative. Risk Assessment: Do you want to hurt yourself or someone else? Patient reports no desire to harm self or others. Onset of symptoms was February 27, 2024. 12:11 Method Of Arrival: Ambulatory tm6 12:11 Acuity: ELIO 3 tm6 Triage Assessment: 12:13 General: Appears in no apparent distress. Behavior is calm, cooperative. Pain: Denies tm6 pain. EENT: Reports blurred vision since x1 week. Neuro: Level of Consciousness is awake, alert, obeys commands, Oriented to person, place, time, situation, Reports blurred vision since x1 week dizziness, since x1 week. Cardiovascular: Patient's skin is warm and dry. Respiratory: Airway is patent Respiratory effort is even, unlabored, Respiratory pattern is regular, symmetrical. GI: No signs and/or symptoms were reported involving the gastrointestinal system. Abdomen is flat, non-distended. GI: Reports decreased appetite. : No signs and/or symptoms were reported regarding the genitourinary system. Derm: No signs and/or symptoms reported regarding the dermatologic system. Musculoskeletal: No signs and/or symptoms reported regarding the musculoskeletal system. Historical: - Allergies: 12:13 Morphine; tm6 - PMHx: 12:13 Atrial Fib; CVA; Heart Monitor; High Cholesterol; Hypertension; Hypothyroidism; tm6 - PSHx: 12:13 Appendectomy; Cholecystectomy; hysterectomy; loop recorder; tm6 - Immunization history:: Flu vaccine is up to date. - Infectious Disease History:: Denies. - Social history:: Smoking status: Patient denies any tobacco usage or history of. - Family history:: not pertinent. Screenin:14 [facility] ED Fall Risk Assessment (Adult) History of falling in the last 3 months, tm6 including since admission No falls in past 3 months (0 pts) Confusion or Disorientation No (0 pts) Intoxicated or Sedated No (0 pts) Impaired Gait Yes (1 pt) Mobility Assist Device Used No (0 pt) Altered Elimination No (0 pt) Score/Fall Risk Level 0 - 2 = Low Risk Oriented to surroundings, Maintained a safe environment, Educated pt \T\ family on fall prevention, incl call for assistance when getting out of bed. Abuse screen: Denies threats or abuse. Denies injuries from another. Nutritional screening: No deficits noted. Tuberculosis screening: No symptoms or risk factors identified. Assessment: 12:14 Reassessment: see triage assessment. tm6 14:15 Reassessment: Patient and/or family updated on plan of care and expected duration. Pain tm6 level reassessed. Patient is alert, oriented x 3, equal unlabored respirations, skin warm/dry/pink. 15:11 Reassessment: Patient and/or family updated on plan of care and expected duration. Pain tm6 level reassessed. Patient is alert, oriented x 3, equal unlabored respirations, skin warm/dry/pink. Vital Signs: 12:11 BP 145 / 61; Pulse 61; Resp 18; Temp 97.7(O); Pulse Ox 100% on R/A; MAP 83 mmHg; Weight tm6 49.9 kg; Height 5 ft. 2 in. ; Pain 0/10; 14:15 Pulse 55; Pulse Ox 99% on R/A; Pain 0/10; tm6 14:16 BP 130 / 50; MAP 72 mmHg; tm6 15:11 BP 139 / 49; Pulse 54; Pulse Ox 98% on R/A; MAP 75 mmHg; Pain 0/10; tm6 12:11 Body Mass Index 20.12 (49.90 kg, 157.48 cm) tm6 12:11 Pain Scale: Adult tm6 14:15 Pain Scale: Adult tm6 15:11 Pain Scale: Adult tm6 NIH Stroke Scale Scores: 15:28 NIHSS Score: 0 [facility] ED Course: 11:57 Patient arrived in ED. im 12:04 Dustin James MD is Attending Physician. saman 12:09 Maddison Velasco, RN is Primary Nurse. tm6 12:12 Triage completed. tm6 12:13 Arm band placed on right wrist. tm6 12:14 Patient has correct armband on for positive identification. Bed in low position. Call tm6 light in reach. Side rails up X 1. Provided Education on: use of call long. Client placed on continuous cardiac and pulse oximetry monitoring. NIBP monitoring applied. warehouse freight handler on. Pulse ox on. NIBP on. Door closed. Noise minimized. Warm blanket given. Pillow given. 12:28 SARS RAPID Sent. tm6 12:28 Flu Sent. tm6 12:28 Basic Metabolic Panel Sent. tm6 12:28 CBC with Diff Sent. tm6 12:28 LFT's Sent. tm6 12:28 Magnesium Sent. tm6 12:28 NT PRO-BNP Sent. tm6 12:28 PT-INR Sent. tm6 12:28 Troponin HS Sent. tm6 12:28 Missed attempt(s): 22 gauge in right antecubital area. Bleeding controlled, band aid tm6 applied, catheter tip intact. 12:51 EKG done, by ED staff. Inserted saline lock: 20 gauge in left antecubital area, using tm6 aseptic technique. Flushed with 10 mL NS. 13:30 XRAY Chest (1 view) In Process Unspecified. EDMS 13:55 CT Head Brain wo Cont In Process Unspecified. EDMS 15:27 Los Jamil MD is Hospitalizing Provider. saman 17:27 No provider procedures requiring assistance completed. Patient admitted, IV remains in tm6 place. Administered Medications: 12:44 Drug: foLIC Acid IVPB 1 mg IVPB once Route: IVPB; Site: left antecubital; tm6 17:28 Follow up: Response: No adverse reaction; IV Status: Completed infusion; IV Intake: tm6 0.2ml 12:44 Drug: Famotidine IVP 20 mg IVP once; dilute with 10 mL 0.9% NaCl; give over 2 minutes tm6 Route: IVP; Site: left antecubital; 17:28 Follow up: Response: No adverse reaction tm6 12:44 Drug: Ondansetron IVP 4 mg IVP once; over 2 minutes Route: IVP; Site: left antecubital; tm6 17:28 Follow up: Response: No adverse reaction tm6 12:45 Drug: NS 0.9% IV 500 ml 500 ml IV at 1 bolus once; to be given as a bolus over 30 tm6 minutes Volume: 500 ml; Route: IV; Rate: 1 bolus; Site: left antecubital; 17:30 Follow up: Response: No adverse reaction; IV Status: Completed infusion tm6 12:45 Drug: NS 0.9% IV 500 ml IV at 100 ml/hr once Route: IV; Rate: 100 ml/hr; Site: left tm6 antecubital; 17:30 Follow up: Response: No adverse reaction; IV Status: Completed infusion; IV Intake: tm6 500ml Medication: 12:14 VIS not applicable for this client. tm6 Intake: 17:28 IV: 0ml; Total: 0ml. tm6 17:30 IV: 500ml; Total: 500ml. tm6 Outcome: 15:28 Decision to Hospitalize by Provider. saman 17:27 Admitted to Med/surg accompanied by tech, via wheelchair, with chart, tm6 17:27 Condition: stable 17:27 Instructed on the need for admit, 17:27 Patient left the ED. tm6 NIH Stroke Scale - NIH Stroke Score Date: 03/05/2024 Time: 15:28 Total Score = 0 10. Dysarthria (speech clarity - read or repeat words) - 0(Normal) 11. Extinction and Inattention (visual/tactile/auditory/spatial/personal) - 0(No abnormality) 1a. Level of Consciousness (LOC) - 0(Alert) 1b. Level of Consciousness (LOC) (Month \T\ Age) - 0(Both) 1c. LOC Commands (Open \T\ Closes Eyes/Vehicle Service Attendant) - 0(Both) 2. Best Gaze (Lateral Gaze Paresis) - 0(Normal) 3. Visual Field Loss - 0(No visual loss) 4. Facial Palsy - 0(Normal) 5a. Left Arm: Motor (10-second hold) - 0(No drift) 5b. Right Arm: Motor (10-second hold) - 0(No drift) 6a. Left Leg: Motor (5-second hold - always test supine) - 0(No drift) 6b. Right Leg: Motor (5-second hold - always test supine) - 0(No drift) 7. Limb Ataxia (finger/nose \T\ heel/fam - test with eyes open) - 0(Absent) 8. Sensory Loss (pinprick arms/legs/face) - 0(Normal) 9. Best Language: Aphasia (description/naming/reading) - 0(No aphasia) Initials: saman Signatures: Dispatcher [employer] Dustin Rubio MD MD cha Mendoza, Itzel im Masterson, Tawney RN RN tm6
--- NOTE | 2024-03-05 15:28 | EDPHYS ---
Physician Documentation [facility] Name: Cierra Flores Age: 83 yrs Sex: Female : 1940 Arrival Date: 03/05/2024 Time: 11:55 Bed 15 Private MD: ED Physician Dustin James HPI: 03/05 15:21 This 83 yrs old Female presents to ER via Ambulatory with complaints of saman Dizziness, Blurred Vision, Decreased Appetite. 15:21 The patient presents with dizziness, generalized weakness. Onset: The symptoms/episode saman began/occurred 2 day(s) ago. Context: occurred at home. Modifying factors: The symptoms are alleviated by holding head still, lying down, the symptoms are aggravated by standing up. Associated signs and symptoms: Pertinent positives: headache, DIZZY. Severity of symptoms: At their worst the symptoms were moderate in the emergency department the symptoms have improved moderately. Patient's baseline: Neuro: alert and fully oriented, Motor: no deficits. The patient has experienced similar episodes in the past, multiple times. Historical: - Allergies: 12:13 Morphine; tm6 - PMHx: 12:13 Atrial Fib; CVA; Heart Monitor; High Cholesterol; Hypertension; Hypothyroidism; tm6 - PSHx: 12:13 Appendectomy; Cholecystectomy; hysterectomy; loop recorder; tm6 - Immunization history:: Flu vaccine is up to date. - Infectious Disease History:: Denies. - Social history:: Smoking status: Patient denies any tobacco usage or history of. - Family history:: not pertinent. ROS: 15:21 Constitutional: Negative for fever, chills, and weight loss, Eyes: Negative for injury, saman pain, redness, and discharge, ENT: Negative for injury, pain, and discharge, Neck: Negative for injury, pain, and swelling, Cardiovascular: Negative for chest pain, palpitations, and edema, Respiratory: Negative for shortness of breath, cough, wheezing, and pleuritic chest pain, Abdomen/GI: Negative for abdominal pain, nausea, vomiting, diarrhea, and constipation, Back: Negative for injury and pain, : Negative for injury, bleeding, discharge, and swelling, MS/Extremity: Negative for injury and deformity, Skin: Negative for injury, rash, and discoloration, Psych: Negative for depression, anxiety, suicide ideation, homicidal ideation, and hallucinations, Allergy/Immunology: Negative for hives, rash, and allergies, Endocrine: Negative for neck swelling, polydipsia, polyuria, polyphagia, and marked weight changes, Hematologic/Lymphatic: Negative for swollen nodes, abnormal bleeding, and unusual bruising, 15:21 Neuro: Positive for dizziness, near syncope, weakness, Exam: 15:21 Constitutional: This is a well developed, well nourished patient who is awake, alert, saman and in no acute distress. Head/Face: Normocephalic, atraumatic. Eyes: Pupils equal round and reactive to light, extra-ocular motions intact. Lids and lashes normal. Conjunctiva and sclera are non-icteric and not injected. Cornea within normal limits. Periorbital areas with no swelling, redness, or edema. ENT: Nares patent. No nasal discharge, no septal abnormalities noted. Tympanic membranes are normal and external auditory canals are clear. Oropharynx with no redness, swelling, or masses, exudates, or evidence of obstruction, uvula midline. Mucous membranes moist. Neck: Trachea midline, no thyromegaly or masses palpated, and no cervical lymphadenopathy. Supple, full range of motion without nuchal rigidity, or vertebral point tenderness. No Meningismus. Chest/axilla: Normal chest wall appearance and motion. Nontender with no deformity. No lesions are appreciated. Cardiovascular: Regular rate and rhythm with a normal S1 and S2. No gallops, murmurs, or rubs. Normal PMI, no JVD. No pulse deficits. Respiratory: Lungs have equal breath sounds bilaterally, clear to auscultation and percussion. No rales, rhonchi or wheezes noted. No increased work of breathing, no retractions or nasal flaring. Abdomen/GI: Soft, non-tender, with normal bowel sounds. No distension or tympany. No guarding or rebound. No evidence of tenderness throughout. Back: No spinal tenderness. No costovertebral tenderness. Full range of motion. Female : Normal external genitalia. Skin: Warm, dry with normal turgor. Normal color with no rashes, no lesions, and no evidence of cellulitis. MS/ Extremity: Pulses equal, no cyanosis. Neurovascular intact. Full, normal range of motion., bilateral aka Psych: Awake, alert, with orientation to person, place and time. Behavior, mood, and affect are within normal limits. 15:21 ECG was reviewed by the Attending Physician. 15:21 Neuro: Orientation: is normal, appropriate for stated age, no acute changes, Mentation: is normal, appropriate for stated age, no acute changes, Memory: is normal, appropriate for stated age, no acute changes, Cranial nerves: grossly normal, is grossly normal based on the patient's age, no acute changes, Cerebellar function: is grossly normal, is grossly normal based on the patient's age, no acute changes, Motor: is normal, Sensation: no obvious gross deficits, appropriate no acute changes, Gait: not tested. Deep tendon reflexes are 1 (trace) + in the bilateral brachioradialis, bicep, tricep and patellar and Achilles tendons, seizure activity, is not displayed by the patient, Vital Signs: 12:11 BP 145 / 61; Pulse 61; Resp 18; Temp 97.7(O); Pulse Ox 100% on R/A; MAP 83 mmHg; Weight tm6 49.9 kg; Height 5 ft. 2 in. ; Pain 0/10; 14:15 Pulse 55; Pulse Ox 99% on R/A; Pain 0/10; tm6 14:16 BP 130 / 50; MAP 72 mmHg; tm6 15:11 BP 139 / 49; Pulse 54; Pulse Ox 98% on R/A; MAP 75 mmHg; Pain 0/10; tm6 12:11 Body Mass Index 20.12 (49.90 kg, 157.48 cm) tm6 12:11 Pain Scale: Adult tm6 14:15 Pain Scale: Adult tm6 15:11 Pain Scale: Adult tm6 NIH Stroke Scale Scores: 15:28 NIHSS Score: 0 saman MDM: 12:04 Medical Screening Exam initiated saman 15:25 Differential diagnosis: cardiac arrhythmia, GI bleed, head injury, hyperventilation, saman hypovolemia, idiopathic dizziness, near-syncope, , sepsis, syncope, TIA. Data reviewed: vital signs, nurses notes, lab test result(s), EKG, radiologic studies, CT scan, doppler. Consideration of Admission/Observation Patient was admitted/placed on observation. Escalation of care including admission/observation considered. I considered the following discharge prescriptions or medication management in the emergency department Medications were administered in the Emergency Department. See MAR. Independent interpretation of the following test(s) in the Emergency Department EKG: See my EKG interpretation above. Test considered but Not performed: MRI: NO MRI BRAIN. Historians other than the Patient: Spouse/Significant Other: WELL INFORMED. Daughter/Son: DAUGHTER. Care significantly affected by the following chronic conditions: Hypertension, CVA . A FIB. HIGH CHLESTEROL. HYPOTHYROID. 03/05 12:06 Order name: Basic Metabolic Panel; Complete Time: 14:25 [facility] 03/05 12:06 Order name: CBC with Diff; Complete Time: 14:25 [facility] 03/05 12:06 Order name: LFT's; Complete Time: 14:25 [facility] 03/05 12:06 Order name: Magnesium; Complete Time: 14:25 [facility] 03/05 12:06 Order name: NT PRO-BNP; Complete Time: 14:25 [facility] 03/05 12:06 Order name: PT-INR; Complete Time: 14:25 [facility] 03/05 12:06 Order name: Troponin HS; Complete Time: 14:25 [facility] 03/05 12:06 Order name: Urinalysis w/ reflexes [facility] 03/05 12:06 Order name: Lipase; Complete Time: 14:25 [facility] 03/05 12:06 Order name: Flu; Complete Time: 14:25 [facility] 03/05 12:06 Order name: SARS RAPID; Complete Time: 14:25 [facility] 03/05 12:06 Order name: XRAY Chest (1 view); Complete Time: 14:25 [facility] 03/05 12:06 Order name: CT Head Brain wo Cont; Complete Time: 14:25 [facility] 03/05 14:25 Order name: US Carotid Artery Bilateral [facility] 03/05 16:12 Order name: US EDMS 03/05 12:06 Order name: Cardiac monitoring; Complete Time: 12:51 [facility] 03/05 12:06 Order name: EKG - Nurse/Tech; Complete Time: 12:51 [facility] 03/05 12:06 Order name: IV Saline Lock; Complete Time: 12:45 [facility] 03/05 12:06 Order name: Labs collected and sent; Complete Time: 12:28 [facility] 03/05 12:06 Order name: O2 Per Protocol; Complete Time: 12:28 [facility] 03/05 12:06 Order name: O2 Sat Monitoring; Complete Time: 12:28 [facility] EC:21 Rate is 51 beats/min. Rhythm is regular. QRS Scotts is Normal. SC interval is normal. QRS saman interval is normal. QT interval is normal. No Q waves. T waves are Normal. No ST changes noted. Clinical impression: Sinus bradycardia and No evidence of ischemia. Interpreted by me. Reviewed by me. Administered Medications: 12:44 Drug: foLIC Acid IVPB 1 mg IVPB once Route: IVPB; Site: left antecubital; tm6 17:28 Follow up: Response: No adverse reaction; IV Status: Completed infusion; IV Intake: tm6 0.2ml 12:44 Drug: Famotidine IVP 20 mg IVP once; dilute with 10 mL 0.9% NaCl; give over 2 minutes tm6 Route: IVP; Site: left antecubital; 17:28 Follow up: Response: No adverse reaction tm6 12:44 Drug: Ondansetron IVP 4 mg IVP once; over 2 minutes Route: IVP; Site: left antecubital; tm6 17:28 Follow up: Response: No adverse reaction tm6 12:45 Drug: NS 0.9% IV 500 ml 500 ml IV at 1 bolus once; to be given as a bolus over 30 tm6 minutes Volume: 500 ml; Route: IV; Rate: 1 bolus; Site: left antecubital; 17:30 Follow up: Response: No adverse reaction; IV Status: Completed infusion tm6 12:45 Drug: NS 0.9% IV 500 ml IV at 100 ml/hr once Route: IV; Rate: 100 ml/hr; Site: left tm6 antecubital; 17:30 Follow up: Response: No adverse reaction; IV Status: Completed infusion; IV Intake: tm6 500ml Disposition Summary: 03/05/24 15:28 Hospitalization Ordered Notes: Hospitalization Status: Observation saamn Provider: [place] cha [facility] saman Condition: Fair saman Problem: new saman Symptoms: have improved saman Bed/Room Type: Standard saman Room Assignment: 232(03/05/24 16:03) eb Diagnosis - Dizziness and giddiness saman - Syncope Near saman Forms: - Medication Reconciliation Form saman - SBAR form saman - Leadership Thank You Letter saman NIH Stroke Scale - NIH Stroke Score Date: 03/05/2024 Time: 15:28 Total Score = 0 10. Dysarthria (speech clarity - read or repeat words) - 0(Normal) 11. Extinction and Inattention (visual/tactile/auditory/spatial/personal) - 0(No abnormality) 1a. Level of Consciousness (LOC) - 0(Alert) 1b. Level of Consciousness (LOC) (Month \T\ Age) - 0(Both) 1c. LOC Commands (Open \T\ Closes Eyes/Bullard Operator) - 0(Both) 2. Best Gaze (Lateral Gaze Paresis) - 0(Normal) 3. Visual Field Loss - 0(No visual loss) 4. Facial Palsy - 0(Normal) 5a. Left Arm: Motor (10-second hold) - 0(No drift) 5b. Right Arm: Motor (10-second hold) - 0(No drift) 6a. Left Leg: Motor (5-second hold - always test supine) - 0(No drift) 6b. Right Leg: Motor (5-second hold - always test supine) - 0(No drift) 7. Limb Ataxia (finger/nose \T\ heel/fam - test with eyes open) - 0(Absent) 8. Sensory Loss (pinprick arms/legs/face) - 0(Normal) 9. Best Language: Aphasia (description/naming/reading) - 0(No aphasia) Initials: saman Signatures: Dispatcher [employer] EDMS Dustin James MD MD cha Botello, Elizabeth eb Masterson, Tawney, RN RN tm6 Corrections: (The following items were deleted from the chart) 12:07 12:07 BASIC METABOLIC PANEL+C.LAB.BRZ ordered. EDMS EDMS 12:07 12:07 CBC+H.LAB.BRZ ordered. EDMS EDMS 12:07 12:07 HEPATIC FUNCTION+C.LAB.BRZ ordered. EDMS EDMS 12:07 12:07 MAGNESIUM+C.LAB.BRZ ordered. EDMS EDMS 12:07 12:07 PROBNP+C.LAB.BRZ ordered. EDMS EDMS 12:07 12:07 PROTIME (+INR)+COAG.LAB.BRZ ordered. EDMS EDMS 12:07 12:07 Troponin High Sensitivity+C.LAB.BRZ ordered. EDMS EDMS 12:07 12:07 Urinalysis+U.LAB.BRZ ordered. EDMS EDMS 12:07 12:07 LIPASE+C.LAB.BRZ ordered. EDMS EDMS 12:07 12:07 Influenza Screen (A \T\ B)+BA.LAB.BRZ ordered. EDMS EDMS 12: 12:07 SARS-COV-2 Antigen Rapid+I.LAB.BRZ ordered. EDMS EDMS : 12:07 Chest Single View+RAD.RAD.BRZ ordered. EDMS EDMS : 12:07 Head Brain Wo Cont+CT.RAD.BRZ ordered. EDMS EDMS 16:03 15:28 saman eb
--- NOTE | 2024-03-05 16:11 | RAD REPORT ---
EXAMINATION: US CAROTID DUPLEX CLINICAL INDICATION: , 83 years old. DIZZINESS. TECHNIQUE: Real-time grayscale, color flow and spectral Doppler sonographic images were obtained of [facility] extracranial carotid system using a linear transducer. CK1036. COMPARISON: MRA 01/10/2022 FINDINGS: RIGHT: Common carotid artery: 98 cm/s Internal carotid artery: 171 cm/s. No definite narrowing is seen on color or grayscale. External carotid artery: 96 cm/s Right ICA/CCA ratio: 2.6 Plaque Mild Noncalcified Vertebral artery Antegrade LEFT: Common carotid artery: 72 cm/s Internal carotid artery: 103 cm/s External carotid artery: 112 cm/s lEFT ICA/CCA ratio: 1.4 Plaque Mild Calcified and noncalcified Vertebral artery Antegrade IMPRESSION: Elevated peak systolic velocity at the right mid ICA which would correspond with a moderate stenosis is favored artifactual as there is not a definite corresponding abnormality on the color Doppler or grayscale. No definite hemodynamically significant stenosis is identified.
[2024-03-05] MEDS ORDERED: ONDANSETRON 4 MG/2 ML VIAL IV PRN (17:32)
[2024-03-05] MEDS ORDERED: ACETAMINOPHEN 325 MG TABLET PO PRN (17:32)
[2024-03-05 18:01] VITALS: BMI 4887.7
[2024-03-05] MEDS: NA CHLORIDE 0.9% 1,000 ML IV SCH (18:09)
[2024-03-05] MEDS: ATORVASTATIN 40 MG TAB PO SCH (21:37)
[2024-03-05] MEDS: DABIGATRAN 75 MG CAP PO SCH (21:37)
[2024-03-05] MEDS: FAMOTIDINE 20 MG/2 ML VIAL IV SCH (21:37)
[2024-03-05] MEDS: HYDRALAZINE HCL 25 MG TABLET PO SCH (21:37)
[2024-03-05] MEDS: AMLODIPINE 5 MG TAB PO SCH (22:23)
[2024-03-05 22:32] VITALS: O2SAT 96
[2024-03-06 04:47] LABS: Absolute Basophils 0.1 K/uL (0-0.5); Absolute Eosinophils 0.1 K/uL (0-0.5); Absolute Lymphocytes (CBC) 1.5 K/uL (0.7-4.9); Absolute Monocytes 0.4 K/uL (0.1-1.3); Absolute Neutrophil 2.8 K/uL (1.8-8.0); Basophils % 2.5 % (0-1.3); Eosinophils % 1.5 % (0-4.4); Hematocrit 33.6 % (36.0-45.0); Hemoglobin 11.2 g/dL (12.0-15.0); Lymphocytes % 30.3 % (15.3-44.8); MCH 30.6 pg (27.0-35.0); MCHC 33.2 g/dL (32.0-36.0); MCV 92.2 fL (80-100); MPV 9.2 fL (7.6-11.3); Monocytes % 8.5 % (3.3-12.3); Neutrophils % 57.2 % (41.7-73.7); Nucleated Red Blood Cells % 0.1 % (0-0); Platelets 194 thou/uL (152-406); RBC Red Blood Cell Count 3.65 M/uL (3.86-4.86); Red Cell Distribution Width 14.4 % (12.1-15.2)
[2024-03-06 05:03] LABS: Anion Gap 9.2 mEq/L (5.0-15.0); Potassium 4.2 mEq/L (3.5-5.1)
[2024-03-06] MEDS: LEVOTHYROXINE SOD 0.075 MG TAB PO SCH (05:13)
[2024-03-06] MEDS ORDERED: METOPROLOL XL 100 MG TAB PO SCH (09:00)
[2024-03-06] MEDS ORDERED: VALSARTAN 160 MG TAB PO SCH (09:00)
[2024-03-06] MEDS: FOLIC ACID 1 MG in NA CHLORIDE 0.9% 50 ML IV SCH (09:47)
[2024-03-06] MEDS: METOPROLOL XL 50 MG TAB PO SCH (09:48)
[2024-03-06] MEDS: AMLODIPINE 5 MG TAB PO SCH (09:48)
[2024-03-06] MEDS: AMIODARONE HCL 200 MG TAB PO SCH (09:48)
[2024-03-06] MEDS: LORATADINE 10 MG TAB PO ONE (09:48)
[2024-03-06] MEDS: VALSARTAN 160 MG TAB PO SCH (09:49)
[2024-03-06] MEDS: FLU (Fluarix Triv) TS24-25(6MOS UP)/PF 45 MCG/0.5 ML Syringe IM ONE (10:13)
[2024-03-06 12:52] VITALS: BP 162/59; TEMP 97.9
--- NOTE | 2024-03-06 20:20 | HP ---
Date of Admission: 03/06/2024 Chief Complaint: Feeling weak, dizzy, and fainting type of feeling. History Of Present Illness: This is an 83-year-old very pleasant female patient who takes her medications regularly as prescribed. Reports that in last 1 week, she feels like a roaring type of sound in her left ear, but denies any hearing problem or any pain in the ear. The patient has fallen down 2-3 times in last 1 week because of feeling dizzy. Yesterday, while she was walking, all of a sudden she felt like she was extremely weak, dizzy, felt like she was going to faint and her eyesight got very blurry and she had to sit down and had this roaring type of sound in her left ear. Denies any headache, nausea, vomiting, chest pain, shortness of breath, or loss of vision. Denies any vomiting or diarrhea. With all this, she presented to emergency room and after she was evaluated, she was admitted to the hospital. Review of Systems: ENT: As mentioned above. SCIENTIFIC TECHNICAL WRITER: As mentioned above. Constitutional: As mentioned above. All other systems reviewed and negative. Allergies: TO MORPHINE CAUSING SYNCOPE. Medications: Amiodarone 200 mg daily, amlodipine 5 mg daily in morning, atorvastatin 40 mg daily at bedtime, Pradaxa 150 mg 2 times a day, hydralazine 50 mg 2 times a day, levothyroxine 75 mcg daily, metoprolol 100 mg daily, olmesartan 40 mg daily. Past Medical History: Significant for stroke in 2016 and she recovered completely without any neurological deficit, hypothyroidism, hypertension, hyperlipidemia, coronary artery disease, chronic atrial fibrillation since 2016. Past Surgical History: Cataract surgery, ablation for atrial fibrillation in 2016, hernia repair, cholecystectomy, appendectomy, hysterectomy, bladder suspension. Family History: Father had cerebral aneurysm. Mother had heart disease, hypertension, and stroke. Brother had myocardial infarction. Sister had lung cancer, heart disease, and hypertension. Social History: Negative for smoking and alcohol use Physical Examination: Vital Signs: Height 5 feet 2 inches, weight 110 pounds, temperature 97.6, pulse 57, respiratory rate 18, blood pressure 108/44, oxygen saturation 95% on room air. Her orthostatic vitals were done and supine blood pressure was 125/53, sitting blood pressure 140/54, standing blood pressure 121/56. General: Awake, alert, oriented, not in distress. HEENT: On ear exam, bilateral ears shows normal ear canal and the tympanic membrane does not have any evidence of redness, no wax buildup. Very slight amount of fluid behind the tympanic membrane. Neck: Supple. No JVD, lymph nodes, bruit, thyromegaly noted. Lungs: Bilateral good equal air entry. Clear to auscultation. No rhonchi. No rales. Heart: Normal heart sounds, no murmur or gallop. Abdomen: Soft, bowel sounds normal. No guarding, rigidity, tenderness, mass, hepatosplenomegaly, distention, or bruit noted. Extremities: No leg edema. No calf tenderness. Skin: No rash, ulcer, cellulitis. Lymphatics: No lymph node enlargement in neck, supraclavicular, infraclavicular region. Neuro: No focal neurological deficit. Chest: Unremarkable. External Genitalia: Deferred. Rectal: Deferred. Laboratory Data: Yesterday, WBC 6.80, hemoglobin 12.5, platelets 227. Today, WBC 4.90, hemoglobin 11.2, platelets 194. For chemistry, yesterday, sodium 136, potassium 4.2, chloride 107, bicarb 21, BUN 31, creatinine 1.68, glucose 110. Liver function tests unremarkable. Troponin 6.1 on the first set, second set 7.7. Lipase 100. Today, sodium 142, potassium 4.2, chloride 114, bicarb 23, BUN 23, creatinine 1.26, glucose 94. Chest x-ray: No acute cardiopulmonary changes. Carotid Doppler shows evidence of moderate stenosis of the right mid internal carotid artery. No evidence of hemodynamically significant stenosis. CAT scan of the head was negative for any acute changes. Impression: 1. Acute kidney injury. 2. Volume depletion. 3. Right carotid artery stenosis. 4. Otitis media, serous, bilateral. 5. Hypertension. 6. Hyperlipidemia. 7. Coronary artery disease. 8. Chronic atrial fibrillation. 9. Chronic anticoagulation therapy. 10. Chronic kidney disease stage 3A. 11. Hypothyroidism. Plan: We will go ahead and admit the patient to hospital for further evaluation and management of this problem. The patient is appropriate for observation and was admitted to the hospital. IV fluid was started after she came into emergency room and renal function has shown improvement, this morning, back to her baseline. No need for further intervention for this acute kidney injury and volume depletion now. For hypertension, we will continue her antihypertensive medication per order. After reviewing her vital signs, I have decided to discontinue her hydralazine completely, reduce dose of metoprolol from 100 mg daily to 50 mg daily and hold her antihypertensive medication which is metoprolol, amlodipine, as well as, valsartan which she has in the hospital in place of olmesartan, if systolic blood pressure less than 120-130 range and those holding parameters were written. We will start her on Claritin 10 mg daily and no need for any further intervention for serous otitis media. For her chronic atrial fibrillation, she is on chronic anticoagulation therapy with Pradaxa 150 mg twice a day and her creatinine clearance is 26, and in view of that, we will need to reduce the dose of her Pradaxa from 150 mg twice a day to 75 mg twice a day. Total time spent 80 minutes including review of last hospital admission record from 12/24/2023, review of last office visit record, communication with the emergency room physician, and performing today's evaluation and management. Possible discharge later today afternoon depending on patient's condition and details and plan of treatment discussed with her and her who was with her as well. NISHANT/MODLalit Voice ID: [id number] MTDD
--- NOTE | 2024-03-07 11:14 | EKG ---
Test Date: 2024-03-05 Test Time: 12:49:12 Stable Attendant: ALICJA MEASUREMENT RESULTS: Intervals: Rate: 51 KS: 164 QRSD: 82 QT: 534 QTc: 492 Pratt: P: 92 KS: 164 QRS: 45 T: 89 INTERPRETIVE STATEMENTS: Sinus bradycardia Nonspecific ST and T wave abnormality Prolonged QT Abnormal ECG Compared to ECG 02/06/2023 23:29:10 ST (T wave) deviation now present Prolonged QT interval now present Atrial fibrillation no longer present Electronically Signed On 03-07-24 11:11:32 [employer]ITARY [employer]UMBER by Kalen Christy
--- NOTE | 2024-03-07 12:47 | CON ---
Date of Consultation: 03/06/2024 Chief Complaint: Dizziness and weakness. History Of Present Illness: Patient has a history of atrial fibrillation and CVA, who presented acutely to the emergency room with generalized dizziness and weakness. She states that she was with her spouse, grocery shopping, and she became suddenly weak and thought that she was going to pass out. Her spouse was able to get her to the car and then they came to the emergency room, and she was initially evaluated by Dr. James and subsequently admitted to the hospital. She is very compliant with checking her blood pressure and she does remember that the lower number was around 40, when she started to become dizzy and her vision started to blur and she became weak with decreased appetite with no vomiting. She denies specifically spinning vertigo, rather she felt lightheaded and dizzy with a mild headache. Upon arrival to bedside, she is awake, alert, and oriented to person, place, and time, and in no acute distress, much improved since presenting to the emergency room. She does have mild left ear tenderness extending to the left jaw, but she denies ear drainage. She has baseline hearing loss, but no recent hearing test and she does not wear hearing aids. She also denies tinnitus, recurrent ear infections, or other ENT complaints today. Past Medical History: Atrial fibrillation, CVA, heart monitor, high cholesterol, hypertension, hypothyroidism. Past Surgical History: Appendectomy, cholecystectomy, hysterectomy, loop recorder. Allergies: POSITIVE FOR MORPHINE. Social History: She denies tobacco, alcohol, or illicit drugs. Medications: Please refer to the MAR. They are not available for review today. Review of Systems: Constitutional: Negative for fever, chills, or weight loss. Positive for generalized weakness. Eyes: Positive for blurry vision, but negative for pain, redness, or discharge. Ears: Positive for mild left ear otalgia, but negative for ear drainage, tinnitus. Positive for hearing loss. Nose: Negative for nasal congestion, rhinorrhea, postnasal drip. Throat: Negative for swelling, difficulty swallowing, painful swallowing, or throat pain. Neurologic: Positive for lightheadedness, dizziness. Physical Examination: General: Patient is awake, alert, oriented to person, place, and time. She is well developed, well nourished, in no acute distress. Head: Atraumatic, normocephalic. Eyes: PERRLA/EOMI. Ears: Bilateral external auditory canals patent. Tympanic membranes intact with no evidence of middle ear effusion. Ossicles are intact bilaterally. Face: Mild tenderness to palpation over the left temporomandibular joint, worse with jaw distraction. Nasal Cavity: Moist intranasal mucosa, midline septum. Nares are patent. Oral Cavity: Oropharyngeal exam is normal with midline uvula. Posterior moist oropharynx intact. No swelling, redness, or exudate. Neck: Supple. Trachea midline. Imaging: CT scan of the brain without contrast, chest x-ray, and bilateral carotid Doppler: Reports were reviewed, and head CT was reviewed by myself and there was no evidence of sinus effusion, mastoid effusion. Middle ear cavities are clear and ossicles appeared to be intact. There is no evidence of atelectasis on chest x-ray or no evidence of consolidation to suggest pneumonia. Doppler exam is negative for stenosis or significant carotid artery or other arterial venous plaque. Laboratory Data: Reviewed. Diagnoses: 1. Acute disequilibrium, improved since admission. Most likely, cardiac in nature, possibly from one of her blood pressure medications, possibly from atrial fibrillation and this was discussed in detail. I do not suspect an ENT etiology. 2. Mild left temporomandibular joint pain. 3. Bilateral unspecified hearing loss. Recommendations: Her ear pain may be due to temporomandibular joint versus eustachian tube dysfunction. Recommend outpatient workup in 2-4 weeks for further testing to include comprehensive audiogram and tympanometry. I will see in the hospital, as needed. HORTENCIA/MARCELLUSL Voice ID: [id number] Report ID: [id number] [facility]
== END 2024-03-06 16:10 | disposition home or self-care (01) ==
LOC: ER 11:55 → ERHOLD 15:31 → 2ND 16:11
PROVIDERS: ADMIT Internal Medicine; ATTEND Internal Medicine
DX: E86.9 Volume depletion, unspecified (principal); H65.93 Unspecified nonsuppurative otitis media, bilateral; N17.9 Acute kidney failure, unspecified; E03.9 Hypothyroidism, unspecified; I10 Essential (primary) hypertension; E78.5 Hyperlipidemia, unspecified; I25.10 Atherosclerotic heart disease of native coronary artery without angina pectoris; I48.11 Longstanding persistent atrial fibrillation; N18.31 Chronic kidney disease, stage 3a; E78.00 Pure hypercholesterolemia, unspecified; R53.1 Weakness; H91.93 Unspecified hearing loss, bilateral; M26.622 Arthralgia of left temporomandibular joint; E87.8 Other disorders of electrolyte and fluid balance, not elsewhere classified; R55 Syncope and collapse; Z79.01 Long term (current) use of anticoagulants; Z11.52 Encounter for screening for COVID-19; Z86.73 Personal history of transient ischemic attack (TIA), and cerebral infarction without residual deficits; Z88.5 Allergy status to narcotic agent
CPT/HCPCS: 96365; 93005; 85025 ×2; 80048 ×2; 36415; 83735; 85610; 80076; 84484 ×2; 83690; 83880; 87804 ×2; 70450; 71045; 93880; 96375; 99285; 96366; 87811; J2405; J7030 ×4; G0378 ×3